=== PATIENT | female | born 1945 | race Caucasian/White ===

== ENCOUNTER 2023-08-11 08:52 | Outpatient (RCR) | payer MEDICARE, OTHER, SELFPAY ==
--- NOTE | 2023-08-11 10:54 | PT.OPEX ---
[facility] [facility] PT [facility] Outpatient Eval Start: 08/11/23 07:50 Freq: Status: Active Protocol: Document 08/11/23 07:50 AMS (Rec: 08/11/23 10:04 AMS [id number]) E-signed By Gabi Grover PT Physical Therapy Outpatient Evaluation Insurance Information Recert Due Date 11/04/23 Insurance Name Medicare B,[employer] Medical Diagnosis Left total knee arthroplasty and hardware removal 08/21/23 Presence of left artificial knee joint Unilateral left primary knee osteoarthritis Treating Diagnosis Aftercare following joint replacement Left knee pain/stiffness Muscle weakness Referring MD Dave Delcid MD Subjective Subjective Carline returns today with ongoing left knee pain. Notable history of left knee arthroscopic partial lateral meniscectomy, tricompartmental debridement, loose body removal (03/15/2016) and left knee lateral tibial plateau fracture ORIF (08/16/2005). She reports the previous injection was effective. There is more pain medial than lateral. She has type 2 diabetes, does not smoke cigarettes and is not on blood thinners. -Dr. Delcid, , confirmed by patient Patient reports to therapy for pre-operative appointment prior to left total knee arthroplasty and hardware removal scheduled for 08/21/[address] Delcid. See history of previous injury/surgeries above - initial injury after falling down the stairs in 2005 with subsequent left tibial plateau ORIF surgery. States she was pain-free for awhile, but now the pain has been getting worse the last 6 months gradually, which has made squatting, kneeling, and longer bouts of walking more painful. X-rays showing end stage tricompartmental arthritis. Please see pre-op note for complete home set up. She is independent without a gait aid at baseline. * home set up: one-level rambler home with no stairs to enter. She has a walk in shower with a grab bar, shower bench, and raised toilet seat frame. 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 Palpation/joint mobility: Tenderness to palpation over medial > lateral joint line on left. Swelling/observation: Midline scar appears well-healed. No visible swelling. Functional Test Performed & Score LEFS: not today Assessment Assessment/Impression Patient is a 78 year old female presenting for pre- operative visit prior to left total knee arthroplasty and hardware removal scheduled for 08/21/23. Notable history of left knee arthroscopic partial lateral meniscectomy, tricompartmental debridement, loose body removal (03/15/2016 ) and left knee lateral tibial plateau fracture ORIF (2005). Upon assessment, patient demonstrates decreased hip/quad strength, pain with squatting, and antalgic gait pattern. These impairments lead to difficulties with squatting, walking longer distances, kneeling, and stairs. Patient will be seen post operatively to reassess impairments that will be addressed with skilled care at [facility]. Today was a one-time visit at this location. Carline would greatly benefit from skilled PT in order to progress strength, ROM, and ambulation post operatively in order to perform all household and work duties without significant difficulty or discomfort. Primary Functional Limitations squatting, stairs, walking longer distances, and kneeling Plan of Care Rehabilitation Potential Good Physical Therapy Goals After pre-op visit: ? Patient will be independent with HEP ? Patient will verbalize knowledge of stair navigation and proper sequencing ? Patient will have knowledge on home adaptations and use of assistive devices post operatively ? Patient will have knowledge of edema management [facility] Coordination/Communication With Referral Source Treatment Plan/Direct Interventions Gait Training,Ice/Cold/ Vasopneumatic,Joint Mobilization,Manual Therapy, Neuromuscular Re-ed, Therapeutic Activities, Therapeutic Exercises Frequency/Duration 1x visit prior to surgery on . Patient scheduled to start outpatient PT s/p TKA on 08/26/23 at [facility]. Has HEP to start with pre-operatively. Patient Will Be Discharged From Therapy Completion of LTG(s) Evaluation Billing Untimed Code Treatment Minutes 15 Complexity Low Certification Information Initial Certification Date 08/11/23 Ending Certification Date 11/04/23 Provider Signature Shows Agreement With POC & Medical Necessity Physician Signature & Date Requested Please Sign/Date Here Physician Comment/Change : Physician NPI Number #
== END 2023-08-12 09:48 | disposition home or self-care (01) ==
PROVIDERS: Visit Provider Orthopaedic Surgery
DX: M17.12 Unilateral primary osteoarthritis, left knee (principal); Z96.652 Presence of left artificial knee joint; M25.562 Pain in left knee; M25.662 Stiffness of left knee, not elsewhere classified; M62.81 Muscle weakness (generalized); Z47.1 Aftercare following joint replacement surgery; Z51.89 Encounter for other specified aftercare
CPT/HCPCS: 97110; 97161

== ENCOUNTER 2023-08-21 10:12 | Day surgery (SDC) | payer MEDICARE, OTHER, SELFPAY ==
[2023-08-21] VITALS (21 sets, daily range): BP systolic 119–158; BP diastolic 53–91; PULSE 52–76; RESP 14–18; TEMP 35.8–37.1; O2SAT 96–100; BMI 33.6
[2023-08-21] MEDS: LACTATED RINGERS 1000 ML 1,000 ML 100 ML IV (09:45)
--- OUTSIDE RECORDS SUMMARY | 2023-08-21 10:15 | XMS_ITS | Clinical Summary ---
Author Organization [facility] Address [address] [place] [address] Care Team Providers Care Associate Manager Affiliate Marketing Name Role Phone Damon Nagel M.D. Primary Care Provider Source Comments Patient records contain information from all sites at [facility]. For routine questions regarding patient records, call [phone] during business hours, M-F 8:00 AM - 5:00 PM Central Time. Record requests for emergency care only can be directed to [phone] at any time.[facility] Allergies Active Allergy Reactions Criticality Noted Date Comments Alendronate GI intolerance Low 08/27/2015 Atenolol Other (see comments) Low 08/11/2009 Celecoxib GI intolerance,Headache Low 04/15/2003 Montelukast Shortness of breath (Reselect Reaction),Headache Low 08/21/2009 Oxycodone Other (see comments) High 01/29/2023 Ezetimibe Other (see comments),Cough Low 01/31/2022 Patient has tried Zetia twice both times resulting in dry cough and chest pressure Medications Medication Sig Dispensed Refills Start Date End Date Status MULTIVITAMIN WITH MINERALS ORAL daily. 08/11/2009 Active loratadine 10 mg capsule Take 10 mg by mouth daily. 09/04/2015 Active ASCORBIC ACID-ASCORBATE CALC ORAL Take 1 tablet by mouth daily. 500 mg 08/11/[address] tablet Take 1 tablet by mouth daily. 10/27/2012 Active CALCIUM CARB/VIT D3/MINERALS (CALCIUM-VITAMIN D ORAL) Take 600 capsules by mouth 2 (two) times a day. 03/04/2016 Active blood-glucose meter kit Check blood sugar everyday 1 each 10/28/2019 Active nitroglycerin (NITROSTAT) 0.4 mg SL tabletIndications:At herosclerotic Heart Disease Of [place] Coronary Artery Without Angina Pectoris Place 1 tablet (0.4 mg total) under the tongue every 5 (five) minutes as needed for chest pain. 25 tablet 1 02/06/2023 Active losartan (COZAAR) 100 mg tabletIndications:Hy pertensive Heart Disease Without Heart Failure Take 1 tablet (100 mg total) by mouth daily. 90 tablet 4 02/06/2023 Active potassium chloride (KLOR-CON M/KDUR) 20 mEq ER tablet Take 1 tablet (20 mEq total) by mouth daily. 90 tablet 4 02/06/2023 Active chlorthalidone (HYGROTON) 25 mg tablet Take 1 tablet (25 mg total) by mouth daily. 90 tablet 4 02/06/2023 Active rosuvastatin (CRESTOR) 40 mg tabletIndications:Hy perlipidemia Mixed Take 1 tablet (40 mg total) by mouth daily. 90 tablet 4 02/06/2023 Active Accu-Chek Fastclix Lancet Drum USE TO CHECK BLOOD SUGAR ONCE DAILY 100 each 3 03/26/2023 Active blood sugar diagnostic strips (Accu-Chek Guide test strips) USE TO TEST ONCE EVERY DAY 100 strip 3 03/26/2023 Active Active Problems Problem Noted Date Diagnosed Date Primary Osteoarthritis Knee Left 02/06/2023 Adrenal Gland Disorder 02/06/2023 Cancer Colon Family History 01/04/2020 Coronary Stent Status Post 01/04/2020 Coronary Arterial Bypass Graft Status Post Perso nal History 12/28/2018 Hypertensive Heart Disease Without Heart Failure 12/22/2017 Peptic Ulcer Disease Personal History 12/22/2017 Diabetes Mellitus Type 2 06/02/2017 Gastroesophageal Reflux Disease Without Esophagi tis 01/22/2017 Anemia Iron Deficiency 12/06/2016 Obesity Body Mass Index 30-39.9 Adult 11/13/2015 Hyperlipidemia 08/24/2015 Overview: Hyperlipidemia Mixed Hysterectomy Abdominal Status Post 11/01/2014 Dysfunction Diastolic 10/12/2012 Carotid Sinus Syndrome 10/04/2011 Atherosclerosis Of Coronary Artery Bypass Graft Without Angina Pectoris 07/30/2010 Myocardial Infarction Old 08/26/2009 Overview: Diagnosis Maintenance Updates NSTEMI Nodule Thyroid 11/29/2008 Osteopenia 04/15/2003 Resolved Problems Problem Noted Date Diagnosed Date Resolved Date Morbid Severe Obesity Due To Excess Calories 9 02/06/2023 Reflux Esophageal 01/22/2017 02/06/2023 Syncope And Near Syncope 07/12/2016 Overview: hospitalized Upper endo PUD 06/2016 [place] Ulcer Peptic 07/11/2016 01/11/2022 Overview: [facility] hospitalization Hyperglycemia 11/13/2015 02/06/2023 Atherosclerotic Heart Diseas e Of [place] Coronary Artery Without Angina Pectoris 10/06/2012 01/04/2020 Hyperlipidemia 05/04/2004 12/22/2017 Hypertension 04/15/2003 01/11/2022 Encounters Date Type Department Care Team Description 08/07/2023 8:30 AM CDT Office Visit Department of Family Medicine, [facility], in [place], [place] [address] [place] [phone] Soila Rousseau D.O. Primary Osteoarthritis Knee Left (Primary Dx); Pain Knee Left; Annual Medicare Examination Return; Hypertensive Heart Disease Without Heart Failure; Diabetes Mellitus Type 2 (HCC); Hyperlipidemia; Coronary Arterial Bypass Graft Status Post Personal History; Atherosclerosis Of Coronary Artery Bypass Graft Without Angina Pectoris; Coronary Stent Status Post; Obesity Body Mass Index 30-39.9 Adult; Adrenal Gland Disorder (HCC) 08/07/2023 Orders Only Department of Family Medicine, [facility], in [place], [place] [address] [place] [phone] Damon Nagel M.D. Diabetes Mellitus Type 2 (HCC) (Primary Dx) 08/06/2023 9:03 AM CDT - 08/06/2023 11:59 PM CDT Hospital Encounter Department of Laboratory Medicine in [place], [place] [address] [place] [phone] Prince Padilla, TERRITORY SALES CONSULTANT, C.N.P. Atherosclerotic Heart Disease Of [place] Coronary Artery Without Angina Pectoris; Coronary Arterial Bypass Graft Status Post Personal History; Preoperative Examination Cardiovascular Discharge Disposition: Home or Self Care 08/06/2023 8:50 AM CDT - 08/06/2023 9:02 AM CDT Hospital Encounter Department of Laboratory Medicine in [place], [place] [address] [place] [address] Damon Nagel M.D. Diabetes Mellitus Type 2 (HCC); Hyperlipidemia; Hyperlipidemia Mixed; Atherosclerotic Heart Disease Of [place] Coronary Artery Without Angina Pectoris; Coronary Arterial Bypass Graft Status Post Personal History; Anemia Iron Deficiency; Preoperative Examination Cardiovascular; Hypertension Essential Primary Discharge Disposition: Home or Self Care 08/06/2023 Orders Only Department of Family Medicine, [facility], in [address] [phone] Damon Nagel M.D. 07/16/2023 10:15 AM CDT Office Visit Department of Cardiovascular Diseases in [address] [phone] Prince Padilla APRN, C.N.P. Atherosclerotic Heart Disease Of [place] Coronary Artery Without Angina Pectoris (Primary Dx); Coronary Stent Status Post; Coronary Arterial Bypass Graft Status Post Personal History; Preoperative Examination Cardiovascular; Hypertension Essential Primary; Hyperlipidemia; Diabetes Mellitus Type 2 (HCC); Anemia Iron Deficiency 07/07/2023 10:30 AM CDT Office Visit Department of Family Medicine, [facility], in [place], [place] [address] [place] [phone] MontagueJanis alvarado APRN, C.N.P., D.N.P. Candidiasis Skin (Primary Dx) 07/07/2023 Nurse Triage Department of [facility], [facility], in [address] [phone] Lana Polo R.N. Rash 06/03/2023 Orders Only [facility] Damon Nagel M.D. from Last 3 Months Immunizations Name Administration Dates Next Due H1N1 All Forms 04/19/2009 HZV (ZOSTAVAX) 10/04/2011 HepA Adult 04/25/2006,12/24/2004 Influenza Split 01/19/2014, 3,01/29/2010,2003,01/29/2003,03/31/1998 Influenza high dose QV(65 ye ars or older) (PF) 12/28/2020 Influenza, Injectable, Quadrivalent 02/01/2016 Influenza, Quadrivalent, Adj uvanted, Preservative Free 01/02/2023,01/01/2022,01/11/2020 Influenza, Seasonal, Injectable 01/21/2012,01/03 Influenza, Unspecified 01/12/2011,2009,01/12/2009,2008 PCV13 11/01/2014 PPSV23 12/06/2016,07/30/2010 RZV (SHINGRIX) 01/31/2019,11/12/2018,07/30/2010 SARS-COV-2 (COVID-19) - MODE RNA (12 YEARS AND OLDER) [id number] 01/17/2023 SARS-COV-2 (COVID-19) - PFIZ ER (Discontinued)(12 years or older) 01/05/2021 SARS-COV-2 (COVID-19) - PFIZ ER BIVALENT TS(Discontinued)(12 YEARS OR OLDER) 01/11/2022 SARS-COV-2 (COVID-19) - PFIZ ER TS(Discontinued)(12 years or older) 07/24/2021 Td (Adult), adsorbed 04/25/2004 Td Preservative Free (TENIVA C, DECAVAC) 10/19/2019 Td, (Adult) Unspecified 01/09/1995 Tdap 07/30/2010 influenza high dose (65 year s or older) (PF) 12/28/2018,12/24/2017,01/22/2017,2015,02/21/2015 Family History Medical History Relation Name Comments Pancreatic cancer Brother 1 Pancreatic cancer Brother 2 Coronary artery disease Brother 3 Damien Ashlee Bypass surgery Diabetes Brother 3 Damien Ashlee Hyperlipidemia Brother 3 Damien Ashlee Hypertension Brother 3 Damien Ashlee Pancreatic cancer Brother 3 Damien [place] Diabetes Brother 4 [place] Hyperlipidemia Brother 4 [place] Pancreatic cancer Brother 4 [place] Colon cancer Father Chris Rosado Obesity Father Chris Rosado Dysrhythmia care Mother Palak Rosado Heart failure Mother Palak [place] Hyperlipidemia Mother Palak [place] Other cancer Mother Palak Rosado Cancerous s ore on her leg Relation Name Status Comments Brother 1 Brother 2 Brother 3 Damien Ashlee Brother 4 [place] Father Chris Rosado Mother Palak Rosado Social History Tobacco Use Types Packs/Day Years Used Date Smoking Tobacco: Never Smokeless Tobacco: Never Tobacco Cessation:Counseling Given: Yes Alcohol Use Standard Drinks/Week Comments Yes 1 (1 standard drink = 0.6 oz pur e alcohol) occassional [facility] Utilities Answer Date Recorded In the past 12 months has [facility] [employer], oil, or water [employer] threatened to shut off services in your home? No 08/05/2023 Humiliation, Afraid, Rape, and Kick questionnair e Answer Date Recorded Within the last year, have y ou been afraid of your partner or ex-partner? No 07/14/2022 Within the last year, have y ou been humiliated or emotionally abused in other ways by your partner or ex-partner? No Within the last year, have y ou been kicked, hit, slapped, or otherwise physically hurt by your partner or ex-partner? No 07/14/2022 Within the last year, have y ou been raped or forced to have any kind of sexual activity by your partner or ex-partner? No 07/14/2022 Social Connection and Isolat ion Panel [NHANES] Answer Date Recorded In a typical week, how many times do you talk on the phone with family, friends, or neighbors? Twice a week 07/14/2022 How often do you get togethe r with friends or relatives? Twice a week 07/14/2022 How often do you attend [facility] or buddhist services? More than 4 times per year 07/14/2022 Do you belong to any clubs o r organizations such as bahai groups, unions, fraternal or athletic groups, or school groups? Yes 07/14/2022 How often do you attend meet ings of the clubs or organizations you belong to? More than 4 times per year 07/14/2022 Are you , , di vorced, , never , or living with a partner? 07/14/2022 AUDIT-C Answer Date Recorded Q1: How often do you have a drink containing alc ohol? 2-4 times a month 07/14/2022 Q2: How many drinks containi ng alcohol do you have on a typical day when you are drinking? 1 or 2 07/14/2022 Q3: How often do you have si x or more drinks on one occasion? Never 07/14/2022 Overall Financial Resource Strain (CARDIA) Answe r Date Recorded How hard is it for you to pa y for the very basics like food, housing, medical care, and heating? Not hard at all 07/14/2022 PHQ-2 Answer Date Recorded PHQ-2 Score 0 08/11/2023 [facility] Occupat ional [facility] - Occupational Stress Questionnaire Answer Date Recorded Do you feel stress - tense, restless, nervous, or anxious, or unable to sleep at night because your mind is troubled all the time - these days? Not at all 07/14/2022 Exercise Vital Sign Answer Date Recorde d On average, how many days pe r week do you engage in moderate to strenuous exercise (like a brisk walk)? 5 days 08/05/2023 On average, how many minutes do you engage in exercise at this level? 30 min 08/05/2023 Hunger Vital Sign Answer Date Recorded Within the past 12 months, y ou worried that your food would run out before you got the money to buy more. Never true 08/05/19 24 Within the past 12 months, t he food you bought just didn't last and you didn't have money to get more. Never true 08/05/2023 PRAPARE - Transportation Answer Date Re corded In the past 12 months, has l ack of transportation kept you from medical appointments or from getting medications? No 09/2023 In the past 12 months, has l ack of transportation kept you from meetings, work, or from getting things needed for daily living? No 08/05/2023 Depression Answer Date Recor ded PHQ-9 Total Score (max 27) 0 08/10 Nutrition Answer Date Recorded On average, how many serving s of fruits and vegetables do you eat per day (serving size is equal to 1 cup or approximately the size of a tennis ball)? 3-5 08/05/2023 Dental Answer Date Recorded Dental: Regular Dentist Yes 01/03/20 Employment Answer Date Recorded Employment status Retired 08/05/2023 Housing Stability Answer Date Recorded What is your living situation today? I have a [facility] place to live 08/05/2023 Education Answer Date Recorded What is the highest level of school you have completed or the highest degree you have received? 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 Gender Identity Female 07/21/2017 4:03 PM CDT Sexual Orientation Straight 07/21/2017 4: 03 PM CDT Last Filed Vital Signs Vital Sign Reading Time Taken Comments Blood Pressure 120/80 08/07/2023 8:16 AM CDT Pulse 60 08/07/2023 8:09 AM CDT Temperature 36.1 ??C (96.9 ??F) 08/07/2023 8:09 AM CD T Respiratory Rate 14 08/07/2023 8:09 AM CDT Oxygen Saturation 99% 07/15/2022 2:56 PM CDT Inhaled Oxygen Concentration - - Weight 71.8 kg (158 lb 4.6 oz) 08/07/2023 8:09 A M CDT Height 146.4 cm (4' 9.64) 07/07/2023 10:22 AM C DT Body Mass Index 33.5 07/07/2023 10:22 AM CDT Plan of Treatment Health Maintenance Due Date Last Done Comments Hepatitis B Vaccines (1 of 3 - Risk 3-dose series) 2007 Dilated Eye Exam 11/27/2023 Postponed f rom 1947 (Patient Refused) Urine Albumin 02/01/2024 01/31/2023, 1003/2021, 01/04/2021, Additional history exists Hemoglobin A1C 02/06/2024 08/06/2023, 110 05/2022, 07/15/2022, Additional history exists Creatinine Level (Kidney Function Test) 08/05/2024 08/06/2023, 01/31/2023, 01/08/2022, Additional history exists Potassium Level 08/05/2024 08/06/2023, 05/2022, 01/08/2022, Additional history exists Sodium Level 08/05/2024 08/06/2023, 05/2022, 01/08/2022, Additional history exists Diabetic Office Visit with Foot Exam 08/06/2024 08/07/2023 Office Visit for Blood Pressure Check / Re-check 08/06/2024 08/07/2023 Visit: Chronic Disease, age 18+ 08/06/2024 08/07/2023, 08/07/2023 Visit: Medicare Annual Wellness 08/07/2024 08/07/2023 COVID-19 Vaccine ( season) 2024 01/17/2023, 01/11/2022, 07/24/2021, Additional history exists Postponed from 05/20/2023 (Patient Refused) DTaP,Tdap,and Td Vaccines (3 - Td or Tdap) 10/18/2029 10/19/2019, 07/30/2010, 04/25/2004, Additional history exists Hepatitis A Vaccines Completed 04/25/2006, 12/25/19 05 Colonoscopy Discontinued 07/07/2009 Colonoscopy Discontinued 07/07/2009 Pneumococcal vaccine (65+ years) Completed 12/06/2016, 11/01/2014, 07/30/2010 Zoster Vaccines Completed 01/31/2019, 10/29, 10/04/2011, Additional history exists CT Colonography Discontinued 12/02/2019, 07/2014, 07/07/2009 CT Colonography Discontinued 12/02/2019, 07/2014, 07/07/2009 Colorectal Cancer Screening Discontinued Colorectal Cancer Surveillance Discontinued Hepatitis C Screening Completed 01/04/2021 Influenza Vaccine Completed 01/02/2023, , 12/28/2020, Additional history exists Mammogram Discontinued 01/09/2023, 12/29, 01/04/2021, Additional history exists Bone Density Scan (Osteoporosis Screen) Discontinued 01/16/2023 Fall Risk Screen (Annual) Completed 07/07/2023 Depression Screening (Annual PHQ-2) Completed 08/11/2023, 07/07/2023 Cologuard Discontinued FIT Discontinued Medical Devices Implanted Type Area Human Resources Communications Manager Device Identifier Shelf Expiration Date Model / Serial / Lot Cardiac Stent Cardiac Stent Heart Xience Stent 3.5 X 15 - Forte [id number] Implanted:Qty: 1 on 08/27/2009 Cardiac Stent Pineda Description:Device Manufactu rer - [employer]. Device Status Text - [id number]. Conversions - Default Historical Implant Device Implanted:2014 (Quantity not on file) Hardware e.g. pins/screws/ rods Left: Leg Description:Body Location - Calf L. Device Status Text - Hardware. Conversions - Default Historical Implant Device Implanted:2014 (Quantity not on file) Stent Other Description:Device Status Te xt - StentOthr. x1. Procedures Procedure Name Priority Date/Time Associated Diagnosis Comments ECG Routine 08/06/2023 9:15 AM CDT Atherosclerotic Heart Disease Of [place] Coronary Artery Without Angina Pectoris Coronary Arterial Bypass Graft Status Post Personal History Preoperative Examination Cardiovascular BASIC METABOLIC PANEL, S/P Routine 08/06/2023 8:58 AM CDT Atherosclerotic Heart Disease Of [place] Coronary Artery Without Angina Pectoris Coronary Arterial Bypass Graft Status Post Personal History Preoperative Examination Cardiovascular Hypertension Essential Primary CBC WITH DIFFERENTIAL, B Routine 08/06/2023 8:58 AM CDT Atherosclerotic Heart Disease Of [place] Coronary Artery Without Angina Pectoris Coronary Arterial Bypass Graft Status Post Personal History Anemia Iron Deficiency Preoperative Examination Cardiovascular LIPID PANEL, S Routine 08/06/2023 8:58 AM CDT Hyperlipidemia Hyperlipidemia Mixed HEMOGLOBIN A1C, B Routine 08/06/2023 8:5 8 AM CDT Diabetes Mellitus Type 2 (HCC) ALBUMIN, RANDOM, U Routine 01/31/2023 8: 35 AM CDT Diabetes Mellitus Type 2 (HCC) BI BREAST SCREENING BILATERAL WITH TOMOSYNTHESIS RAD - Routine (most inpatients and all outpatients) 01/09/2023 2:52 PM CDT Screening Mammogram Breast Cancer HCV AB SCRN W/REFLEX TO HCV PCR, S Routine 01/04/2021 9:57 AM CDT Maintenance Health Adult CT COLONOGRAPHY SCREENING WITHOUT IV CONTRAST RAD - Routine (most inpatients and all outpatients) 12/02/2019 8:19 AM CDT Screening Cancer Colon from Last 3 Months or Most Recently Relevant to Health Maintenance Results * ECG 12 Lead (08/06/2023 9:15 AM CDT) Ventricular Rate ECG/Min 60 BPM MUSE NM Interval 142 ms MUSE QRSD Interval 140 ms MUSE QT Interval 444 ms MUSE QTC Interval 444 ms MUSE P [place] 71 degrees MUSE R [place] 84 degrees MUSE T Wave [place] 32 degrees MUSE 08/06/2023 9:15 AM CDT 08/06/2023 9:27 AM CDT Impressions MUSE - 08/06/2023 9:27 AM CDT Normal sinus rhythm Right bundle branch block with secondary ST-T abnormalities When compared with ECG of 06-Aug-2021 12:33, No significant change was found Reviewed by SINAN Ho Narrative Procedure Note Herminio Lassiter M.D., M.P.H. - 08/06/2023 IMPRESSION: Normal sinus rhythm Right bundle branch block with secondary ST-T abnormalities When compared with ECG of 06-Aug-2021 12:33, No significant change was found Reviewed by SINAN Ho Zeferino Kraft APRNN.PNemo ECG ORDERABLE S MUSE NA * Lipid Panel (08/06/2023 8:58 AM CDT) Triglycerides 111 mg/dL 08/06/2023 3:14 PM CDT OWAT Comment: ----REFERENCE VALUE---- Normal: <150 mg/dL Borderline High: 150-199 mg/dL High: 200-499 mg/dL Very High: > or =500 mg/dL Cholesterol, Total 167 mg/dL 2023 3:14 PM CDT OWAT Comment: ----REFERENCE VALUE---- Desirable: < 200 mg/dL Borderline High: 200 - 239 mg/dL High: > or = 240 mg/dL Cholesterol, LDL, Calculated 84 mg/dL 08/06/2023 3:14 PM CDT OWAT Comment: ----REFERENCE VALUE---- Desirable: <100 mg/dL Above Desirable: 100-129 mg/dL Borderline High: 130-159 mg/dL High: 160-189 mg/dL Very High: >=190 mg/dL ----ADDITIONAL INFORMATION---- LDL cholesterol calculated using the Reddy/NIH equation. Cholesterol, HDL 63 >=50 mg/dL 08/06/19 3:14 PM CDT OWAT Cholesterol, Non-HDL, Calculated 104 mg/dL 08/06/2023 3:14 PM CDT OWAT Comment: ----REFERENCE VALUE---- Desirable: <130 mg/dL Above Desirable: 130-159 mg/dL Borderline High: 160-189 mg/dL High: 190-219 mg/dL Very High: > or =220 mg/dL Fasting (8 HR or more) Yes 08/06/2023 1:17 PM CDT OWAT Blood (Blood, Venous) 08/06/2023 8:58 AM CDT 08/06/2023 1:17 PM CDT Damon Nagel M.D. LAB BLOOD ADD- ON [facility] [address] [place] [address], [place] OWAT [facility] [place] [address] [place] [address] * CBC with Differential, Blood (08/06/2023 8:58 AM CDT) Hemoglobin 12.7 11.6 - 15.0 g/dL 08/06/2023 9:02 AM CDT FB60 Hematocrit 38.7 35.5 - 44.9 % 08/06/2023 9:02 AM CDT FB60 Erythrocytes 4.20 3.92 - 5.13 x10(12)/L 08/06/2023 9:02 AM CDT FB60 MCV 92.1 78.2 - 97.9 fL 08/06/2023 9:02 AM CDT FB60 RBC Distrib Width 13.1 12.2 - 16.1 % 08/06/2023 9:02 AM CDT FB60 Platelet Count 254 157 - 371 x10(9)/L 08/06/2023 9:02 AM CDT FB60 Leukocytes 5.8 3.4 - 9.6 x10(9)/L 08/06/2023 9:02 AM CDT FB60 Neutrophils 2.67 1.56 - 6.45 x10(9)/L 08/06/2023 9:02 AM CDT FB60 Lymphocytes 2.41 0.95 - 3.07 x10(9)/L 08/06/2023 9:02 AM CDT FB60 Monocytes 0.55 0.26 - 0.81 x10(9)/L 08/06/2023 9:02 AM CDT FB60 Eosinophils 0.19 0.03 - 0.48 x10(9)/L 08/06/2023 9:02 AM CDT FB60 Basophils <0.04 0.01 - 0.08 x10(9)/L 08/06/2023 9:02 AM CDT FB60 Blood (Blood, Venous) 08/06/2023 8:58 AM CDT 08/06/2023 8:58 AM CDT Prince Padilla APRN C.N.P. LAB BLOOD ADD -ON [facility] [address] [place] [address], [facility] FB60 [facility] [place] [address] [place] [address] * (ABNORMAL) Hemoglobin A1c (08/06/2023 8:58 AM CDT) Hemoglobin A1c, B 6.6(H) 4.2 - 5.6 % 08/06/2023 3:03 PM CDT OWAT Comment: Hemoglobin A1c values greater than or equal to 6.5 percent are diagnostic for diabetes mellitus. ??Diagnosis should be confirmed by repeat testing. ??In diabetic patients, HbA1c goals should be discussed with healthcare provider. Blood (Blood, Venous) 08/06/2023 8:58 AM CDT 08/06/2023 1:17 PM CDT Damon Nagel M.D. LAB BLOOD ADD- ON [facility] [address], [place] [address], [facility] OWAT [facility] [place] [address] [place] [address] * (ABNORMAL) Basic Metabolic Panel (08/06/2023 8:58 AM CDT) Potassium, P 3.6 3.6 - 5.2 mmol/L 08/06/2023 3:14 PM CDT OWAT Sodium, P 141 135 - 145 mmol/L 08/06/2023 3:14 PM CDT OWAT Chloride, P 99 98 - 107 mmol/L 08/06/2023 3:14 PM CDT OWAT Bicarbonate, P 32(H) 22 - 29 mmol/L 08/06/2023 3:14 PM CDT OWAT Anion Gap, P 10 7 - 15 08/06/2023 3:14 PM CDT OWAT BUN (Blood Urea Nitrogen), P 21 6 - 21 mg/dL 08/06/2023 3:14 PM CDT OWAT Creatinine 0.70 0.59 - 1.04 mg/dL 08/06/2023 3:14 PM CDT OWAT Estimated GFR (eGFR) 90 >=60 mL/min/BSA 08/06/2023 3:14 PM CDT OWAT Comment: Estimated GFR calculated using the 2020 CKD_EPI creatinine equation. Calcium, Total, P 10.2 8.8 - 10.2 mg/dL 08/06/2023 3:14 PM CDT OWAT Glucose, P 123 70 - 140 mg/dL 08/06/2023 3:14 PM CDT OWAT Blood (Blood, Venous) 08/06/2023 8:58 AM CDT 08/06/2023 1:17 PM CDT Prince Padilla APRN CNemoNNemoPNemo LAB BLOOD ADD -ON Performing Organization Address [facility] Co de Phone Number [facility] [address] [place] [address], [facility] OWAT [facility] [place] [address] [place] [address] * Albumin, Random, Urine (01/31/2023 8:35 AM CDT) Microalbumin 26.0 mg/L 01/31/2023 11:53 AM CDT OWAT Creatinine 266 mg/dL 01/31/2023 11:53 AM CDT OWAT Albumin/Creatinin e Ratio 10 <25 mg/g 01/31/2023 11:53 AM CDT OWAT Urine (Urine, Midstream) 01/31/2023 8:35 AM CDT 01/31/2023 11:04 AM CDT Damon Nagel M.D. LAB URINE QUINNE RABLES Performing Organization Address [facility] Co de Phone Number [facility] [address] [place] [address], [facility] OWAT [facility] [place] [address] [place] [address] * BI Breast Screening Bilateral with Tomosynthesis (01/09/2023 2:52 PM CDT) Anatomical Region Laterality Modality Breast, Breast Imaging RST L OS, Breast Imaging ARZ LOS, Breast Imaging FLA LOS Bilateral Mammography 01/09/2023 4:02 PM CDT Impressions 01/09/2023 4:05 PM CDT Negative. RECOMMENDATION: ??Annual Screening Mammogram ASSESSMENT: ??BI-RADS: 1: Negative. Narrative 01/09/2023 4:05 PM CDT EXAM: ??BI BREAST SCREENING BILATERAL WITH TOMOSYNTHESIS Current study was evaluated with a Computer Aided Detection (CAD) system. INDICATION: ??Screening mammogram. COMPARISON: ??Prior exam(s) were available and reviewed for comparison. DENSITY: ??b. There are scattered areas of fibroglandular density. FINDINGS: ??No mammographic findings of malignancy. Procedure Note Damon Bella M.D. - 01/09/2023 EXAM: BI BREAST SCREENING BILATERAL WITH TOMOSYNTHESIS Current study was evaluated with a Computer Aided Detection (CAD) system. INDICATION: Screening mammogram. COMPARISON: Prior exam(s) were available and reviewed for comparison. DENSITY: b. There are scattered areas of fibroglandular density. FINDINGS: No mammographic findings of malignancy. IMPRESSION: Negative. RECOMMENDATION: Annual Screening Mammogram ASSESSMENT: BI-RADS: 1: Negative. Damon Nagel M.D. IMG BI PROCEDU RES * HCV Ab Scrn w/Reflex to HCV PCR, Serum (01/04/2021 9:57 AM CDT) HCV Ab Screen, S Negative Negative 01/05/2021 7:44 AM CDT [facility] Comment:Avmcog-tp-spnnom rat io is <1.00. Blood (Blood, Venous) 01/04/2021 9:57 AM CDT 01/05/2021 6:49 AM CDT Damon Nagel M.D. LAB MICROBIOLO GY - BLOOD ORDERABLES [facility] [address] [place] [address] [facility] Dept. of Laboratory Medicine and Pathology [address] [place] [address] * CT Colonography Screening without IV Contrast (12/02/2019 8:19 AM CDT) Anatomical Region Laterality Modality Abdomen, Pelvis, Abdominal R ST LOS, Abdominal ARZ LOS, Abdominal FLA LOS N/A Computed Tomograp hy, Computed Tomography 12/02/2019 8:44 AM CDT Impressions 12/02/2019 9:25 AM CDT No evidence of polyp or mass in the colon. Narrative 12/02/2019 9:25 AM CDT EXAM: ??CT COLONOGRAPHY SCREENING WITHOUT IV CONTRAST COMPARISON: ??CT colonography 11/02/2014 and 07/07/2009. TECHNIQUE: CT abdomen and pelvis in supine, right decubitus, and left decubitus positions. Preparation: Satisfactory Dose: Low IV contrast material: Not administered Glucagon: 1mg administered subcutaneously Complications: None. Exam Codes: ??C1 E2 T0 COLONIC FINDINGS: Colon is NEGATIVE for polyp or mass. EXTRACOLONIC FINDINGS: INCIDENTAL: Small sliding esophageal hiatal hernia. Vascular calcifications. No abdominal aortic aneurysm. Hysterectomy. Small fat-containing umbilical hernia. Scarring left lung base. Sternotomy. Degenerative changes thoracolumbar spine. Procedure Note Sha An M.D. - 12/02/2019 EXAM: CT COLONOGRAPHY SCREENING WITHOUT IV CONTRAST COMPARISON: CT colonography 11/02/2014 and 07/07/2009. TECHNIQUE: CT abdomen and pelvis in supine, right decubitus, and left decubituspositions. Preparation: Satisfactory Dose: Low IV contrast material: Not administered Glucagon: 1mg administered subcutaneously Complications: None. Exam Codes: C1 E2 T0 COLONIC FINDINGS: Colon is NEGATIVE for polyp or mass. EXTRACOLONIC FINDINGS: INCIDENTAL: Small sliding esophageal hiatal hernia. Vascular calcifications. Noabdominal aortic aneurysm. Hysterectomy. Small fat-containing umbilical hernia. Scarring left lung base. Sternotomy. Degenerative changes thoracolumbarspine. IMPRESSION: No evidence of polyp or mass in the colon. Damon BARTHOLOMEWG CT PROCEDU RES from Last 3 Months or Most Recently Relevant to Health Maintenance Care Teams Associate Manager Affiliate Marketing Relationship Specialty Start Date End Date Damon Nagel M.D. [address] [place] [phone] PCP - General Family Medicine 08/31/19
--- OUTSIDE RECORDS SUMMARY | 2023-08-21 10:15 | XMS_ITS | Referral Summary ---
Author Organization [facility] Address [address] [place] [address] Care Team Providers Care Dye Reel Operator Name Role Phone Damon Nagel M.D. Primary Care Provider Source Comments Patient records contain information from all sites at [facility]. For routine questions regarding patient records, call [phone] during business hours, M-F 8:00 AM - 5:00 PM Central Time. Record requests for emergency care only can be directed to [phone] at any time.[facility] Encounters Date Type Department Care Team Description 08/07/2023 Orders Only Department of Family Medicine, [facility], in [place], [place] [address] [place] [phone] Damon Nagel M.D. Diabetes Mellitus Type 2 (HCC) (Primary Dx) 08/07/2023 8:30 AM CDT Office Visit Department of Family Medicine, [facility], in [place], [place] [address] [place] [phone] Soila Rousseau D.O. Primary Osteoarthritis Knee Left (Primary Dx); Pain Knee Left; Annual Medicare Examination Return; Hypertensive Heart Disease Without Heart Failure; Diabetes Mellitus Type 2 (HCC); Hyperlipidemia; Coronary Arterial Bypass Graft Status Post Personal History; Atherosclerosis Of Coronary Artery Bypass Graft Without Angina Pectoris; Coronary Stent Status Post; Obesity Body Mass Index 30-39.9 Adult; Adrenal Gland Disorder (HCC) 08/06/2023 Orders Only Department of Family Medicine, [facility], in [place], [place] [address] [phone] Damon Nagel M.D. 08/06/2023 9:03 AM CDT - 08/06/2023 11:59 PM CDT Hospital Encounter Department of Laboratory Medicine in [address] [phone] Prince Padilla APRN, C.N.P. Atherosclerotic Heart Disease Of [place] Coronary Artery Without Angina Pectoris; Coronary Arterial Bypass Graft Status Post Personal History; Preoperative Examination Cardiovascular Discharge Disposition: Home or Self Care 08/06/2023 8:50 AM CDT - 08/06/2023 9:02 AM CDT Hospital Encounter Department of Laboratory Medicine in [address] [phone] Damon Nagel M.D. Diabetes Mellitus Type 2 (HCC); Hyperlipidemia; Hyperlipidemia Mixed; Atherosclerotic Heart Disease Of [place] Coronary Artery Without Angina Pectoris; Coronary Arterial Bypass Graft Status Post Personal History; Anemia Iron Deficiency; Preoperative Examination Cardiovascular; Hypertension Essential Primary Discharge Disposition: Home or Self Care 07/16/2023 10:15 AM CDT Office Visit Department of Cardiovascular Diseases in [place], [place] [address] [place] [phone] Prince Padilla APRN, C.N.P. Atherosclerotic Heart Disease Of [place] Coronary Artery Without Angina Pectoris (Primary Dx); Coronary Stent Status Post; Coronary Arterial Bypass Graft Status Post Personal History; Preoperative Examination Cardiovascular; Hypertension Essential Primary; Hyperlipidemia; Diabetes Mellitus Type 2 (HCC); Anemia Iron Deficiency 07/07/2023 10:30 AM CDT Office Visit Department of Family Medicine, [facility], in [place], [place] [address] [place] [phone] Janis Montague APRN, C.N.PNemo, D.N.P. Candidiasis Skin (Primary Dx) 07/07/2023 Nurse Triage Department of Family Medicine, [facility], in [place], [place] [address] [place] [phone] Lana Polo R.N. Rash 06/03/2023 Orders Only [facility] PCP [facility] Damon Nagel M.D. from Last 3 Months Allergies Active Allergy Reactions Criticality Noted Date [...] mg SL tabletIndications:At herosclerotic Heart Disease Of [place] Coronary Artery Without Angina Pectoris Place 1 [...] 07/12/2016 Overview: hospitalized Upper endo PUD 06/2016 [place] Ulcer Peptic 07/11/2016 01/11/2022 Overview: [place] hospitalization Hyperglycemia 11/13/2015 02/06/2023 Atherosclerotic Heart Diseas e Of [place] Coronary Artery Without Angina Pectoris 10/06/2012 01/04/2020 Hyperlipidemia 05/04/2004 12/22/2017 Hypertension 04/15/2003 01/11/2022 Immunizations Name Administration Dates Next Due H1N1 [...] - MODE RNA (12 YEARS AND OLDER) [id number] 01/17/2023 SARS-COV-2 (COVID-19) - PFIZ ER (Discontinued)(12 years or older) 01/05/2021 SARS-COV-2 (COVID-19) - PFIZ ER BIVALENT TS(Discontinued)(12 YEARS OR OLDER) 01/11/2022 SARS-COV-2 (COVID-19) - PFIZ ER TS(Discontinued)(12 years or older) 07/24/2021 Td (Adult), adsorbed 04/25/2004 Td Preservative Free (TENIVA C, DECAVAC) 10/19/2019 Td, (Adult) Unspecified 01/09/1995 Tdap 07/30/2010 influenza high dose (65 year s or older) (PF) 12/28/2018,12/24/2017,01/22/2017,2015,02/21/2015 Social History Tobacco Use Types Packs/Day Years Used Date Smoking Tobacco: Never Smokeless Tobacco: Never Tobacco Cessation:Counseling Given: Yes Alcohol Use Standard Drinks/Week Comments Yes 1 (1 standard drink = 0.6 oz pur e alcohol) occassional [facility] Utilities Answer Date Recorded In the past 12 months has th e electric, gas, oil, or water company threatened to shut off services in your [...] week 07/14/2022 How often do you attend chur ch or pentecostal services? More than 4 times per year 07/14/2022 Do you belong to any clubs o r organizations such as orthodox groups, unions, fraternal or athletic groups, or [...] Answer Date Recorded PHQ-2 Score 0 08/11/20[address] [facility] - Occupational Stress Questionnaire Answer Date Recorded [...] your living situation today? I have a [facility] place to live 08/05/2023 Education Answer Date Recorded What is the highest level of school you have completed or the highest degree you have received? 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 Device Status Text - [id number]. 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 Personal History Preoperative Examination Cardiovascular Hypertension Essential Primary CBC WITH DIFFERENTIAL, B Routine 08/06/2023 8:58 AM CDT Atherosclerotic Heart Disease Of [place] Coronary Artery Without Angina Pectoris Coronary Arterial [...] CDT) Ventricular Rate ECG/Min 60 BPM MUSE MO Interval 142 ms MUSE QRSD Interval 140 ms MUSE QT Interval 444 ms MUSE QTC Interval 444 ms MUSE P [place] 71 degrees MUSE R [place] 84 degrees MUSE T Wave [place] 32 degrees MUSE 08/06/2023 9:15 AM CDT 08/06/2023 9:27 AM CDT Impressions MUSE - 08/06/2023 9:27 AM CDT Normal sinus rhythm Right bundle branch block with secondary ST-T abnormalities When compared with ECG of 06-Aug-2021 12:33, No significant change was found Reviewed by SINAN Ho Narrative Procedure Note Herminio Lassiter M.D., M.P.H. - 05/08/2024 IMPRESSION: Normal sinus rhythm Right bundle branch block with secondary ST-T abnormalities When compared with ECG of 06-Aug-2021 12:33, No significant change was found Reviewed by SINAN Ho Zeferino Kraft APRNNNemoPNemo ECG ORDERABLE S MUSE NA * Lipid [...] Damon Nagel M.D. LAB BLOOD ADD- ON [facility] [address] [place] [address], [place] OW[place] [facility] [place] [address] [place] [address] * CBC with Differential, Blood (08/06/2023 8:58 [...] CDT 08/06/2023 8:58 AM CDT Prince Padilla APRN, C.N.P. LAB BLOOD ADD -ON [facility] [address] [place] [address], [place] [id number] [facility] [place] [address] [place] [address] * (ABNORMAL) Hemoglobin A1c (08/06/2023 8:58 AM [...] Damon Nagel M.D. LAB BLOOD ADD- ON [facility] [address] [place] [address], [facility] [place] [address] [place] [address] * (ABNORMAL) Basic Metabolic Panel (08/06/2023 8:58 [...] 8:58 AM CDT 08/06/2023 1:17 PM CDT Ananth Kraft APRN.N.P. LAB BLOOD ADD -ON Performing Organization Address City/[facility] Co de Phone Number [facility] [address] [place] [phone], [facility] [place] [address] [place] [phone] * Albumin, Random, Urine (01/31/2023 8:35 AM CDT) Microalbumin 26.0 mg/L 01/31/2023 11:53 AM CDT [facility] Creatinine 266 mg/dL 01/31/2023 11:53 AM CDT [facility] Albumin/Creatinin e Ratio 10 <25 mg/g 01/31/2023 11:53 AM CDT [facility] Urine (Urine, Midstream) 01/31/2023 8:35 AM CDT 01/31/2023 11:04 AM CDT Damon Nagel M.D. LAB URINE TIANA [place] Performing Organization Address City/[facility]/ZIP Co de Phone Number [facility] [address] [place] [phone], [facility] OW[facility] [place] [address] [place] [address] * BI Breast Screening Bilateral with Tomosynthesis [...] S Negative Negative 01/05/2021 7:44 AM CDT [facility] Comment:Flokli-cr-uswkbg rat io is <1.00. Blood (Blood, Venous) 01/04/2021 9:57 AM CDT 01/05/2021 6:49 AM CDT Damon Nagel M.D. LAB MICROBIOLO GY - BLOOD ORDERABLES [facility] [address] [place] [address] [facility] Dept. of Laboratory Medicine and Pathology [address] [place] [address] * CT Colonography Screening without IV Contrast [...] polyp or mass in the colon. Damon Nagel M.D. IMG CT PROCEDU RES from Last 3 Months or Most Recently Relevant to Health Maintenance Care Teams Dye Reel Operator Relationship Specialty Start Date End Date Damon Nagel M.D. [address] [place] [phone] PCP - General Family Medicine 08/31/19
--- OUTSIDE RECORDS SUMMARY | 2023-08-21 10:15 | XMS_ITS ---
Author Organization [facility] Address [address] [place] [address] Care Team Providers Care Weaving Inspector Name Role Phone Unavailable Unavailable Unavailable Surgery Details Not on file Complications Check Surgery Details section. Procedure Estimated Blood Loss Check Surgery Details section. Procedure Findings Check Surgery Details section. Procedure Specimens Taken Check Surgery Details section.
--- OUTSIDE RECORDS SUMMARY | 2023-08-21 10:15 | XMS_ITS | Encounter Summary ---
Author Organization [facility] Address [address] [place] [address] Care Team Providers Care Transformer Stock Clerk Name Role Phone Damon Nagel M.D. Primary Care Provider Encounter Details Date Type Department Care Team (Late st Contact Info) Description 08/07/2023 Orders Only Department of Family Medicine, [facility], in [place], [place] [address] [place] [phone] Damon Nagel M.D. [address], [place] [phone] Diabetes Mellitus Type 2 (HCC) (Primary Dx) Social History Tobacco Use Types Packs/Day Years Used Date Smoking Tobacco: Never Smokeless Tobacco: Never Alcohol Use Standard Drinks/Week Comments Yes 1 (1 standard drink = 0.6 oz pur e alcohol) occassional [facility] Utilities Answer Date Recorded In the past 12 months has e [employer], gas, oil, or water [employer] threatened to shut off services in your [...] often do you attend chur ch or holiness services? More than 4 times per year 07/14/2022 Do you belong to any clubs o r organizations such as sikhism groups, unions, fraShijiebang or athletic groups, or school groups? Yes [...] Answer Date Recorded PHQ-2 Score 0 08/11/2023 [facility] - Occupational Stress Questionnaire Answer Date [...] your living situation today? I have a [facility] place to live 08/05/2023 Education Answer Date Recorded What is the highest level of school you have completed or the highest degree you have received? 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 Gender Identity Female 07/21/2017 4:03 PM CDT Sexual Orientation Straight 07/21/2017 4: 03 PM CDT documented as of this encounter Plan of Treatment Scheduled Orders Name Type Priority Associated Diagnoses Orde r Schedule Hemoglobin A1c Lab Routine Diabetes Mellitus Type 2 (HCC) Expected: 02/07/2024 (Approximate), Expires: 11/06/2024 documented as of this encounter Visit Diagnoses Diagnosis Diabetes Mellitus Type 2 (HCC)- Primary documented in this encounter Additional Health Concerns Assessment Noted Time PHQ-9 Depression Total Score: 4 12/29/19 19 1:34 PM CDT documented as of this encounter Care Teams Transformer Stock Clerk Relationship Specialty Start Date End Date Damon Nagel M.D. [address] [place] [phone] PCP - General Family Medicine 08/31/19 documented as of this encounter
--- OUTSIDE RECORDS SUMMARY | 2023-08-21 10:16 | XMS_ITS | Encounter Summary ---
Author Organization [facility] Address [address] [place] [address] Care Team Providers Care Plating Operator Name Role Phone Damon Nagel M.D. 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 [address] [place] [phone] [facility] Region Referral ID Status Reason Start Date Expiration Date Visits Re quested Visits Authorized [id number] Closed 07/16/2023 07/15/2024 1 1 Encounter Details Date Type Department Care Team (Latest Contact Info) Description 08/06/2023 9:03 AM CDT - 08/06/2023 11:59 PM CDT Hospital Encounter Department of Laboratory Medicine in [place], [place] [address] [facility], [place] [phone] Prince Padilla, DEISI, C.N.P. [address] [phone] Atherosclerotic Heart Disease Of [place] Coronary Artery Without Angina Pectoris; Coronary Arterial Bypass Graft Status Post Personal History; Preoperative Examination Cardiovascular Discharge Disposition: Home or Self Care Social History Tobacco Use Types Packs/Day Years Used Date Smoking Tobacco: Never Smokeless Tobacco: Never Alcohol Use Standard Drinks/Week Comments Yes 1 (1 standard drink = 0.6 oz pur e alcohol) occassional [facility] Utilities Answer Date Recorded In the past 12 months has e [employer], gas, oil, or water [employer] threatened to shut off services in your [...] week 07/14/2022 How often do you attend [facility] or synagogue services? More than 4 times per year 07/14/2022 Do you belong to any clubs o r organizations such as congregational groups, unions, fraternal or athletic groups, or [...] PHQ-2 Answer Date Recorded PHQ-2 Score 0 07/07/2023 [employer] [facility] Occup[facility] ional [facility] - Occupational Stress Questionnaire Answer Date Recorded [...] things needed for daily living? No 08/05/2023 Nutrition Answer Date Recorded On average, how many serving s of fruits and vegetables do you eat per day (serving size is equal to 1 cup or approximately the size of a tennis ball)? 3-5 08/05/2023 Dental Answer Date Recorded Dental: Regular Dentist Yes 01/03/20 21 Employment Answer Date Recorded Employment status Retired 08/05/2023 Housing Stability Answer Date Recorded What is your living situation today? I have a [facility] place to live 08/05/2023 Education Answer Date Recorded What is the highest level of school you have completed or the highest degree you have received? 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 500 mg 08/11/[address] tablet Take 1 tablet by mouth daily. 10/27/2012 blood sugar diagnostic strips (Accu-Chek Guide test strips) USE TO TEST ONCE EVERY DAY 100 strip 3 03/26/2023 blood-glucose meter kit Check blood sugar everyday 1 each 10/28/2019 CALCIUM CARB/VIT D3/MINERALS (CALCIUM-VITAMIN D ORAL) Take 600 capsules by mouth 2 (two) times a day. 03/04/2016 chlorthalidone (HYGROTON) 25 mg tablet Take 1 tablet (25 mg total) by mouth daily. 90 tablet 4 02/06/2023 loratadine 10 mg capsule Take 10 mg by mouth daily. 09/04/2015 losartan (COZAAR) 100 mg tabletIndications:Hypert ensive Heart Disease Without Heart Failure Take 1 tablet (100 mg total) by mouth daily. 90 tablet 4 02/06/2023 MULTIVITAMIN WITH MINERALS ORAL daily. 08/11/2009 nitroglycerin (NITROSTAT) 0.4 mg SL tabletIndications:Athero sclerotic Heart Disease Of [place] Coronary Artery Without Angina Pectoris Place 1 tablet (0.4 mg total) under the tongue every 5 (five) minutes as needed for chest pain. 25 tablet 1 02/06/2023 potassium chloride (KLOR-CON M/KDUR) 20 mEq ER tablet Take 1 tablet (20 mEq total) by mouth daily. 90 tablet 4 02/06/2023 rosuvastatin (CRESTOR) 40 mg tabletIndications:Hyperl ipidemia Mixed Take 1 tablet (40 mg total) by mouth daily. 90 tablet 4 02/06/2023 documented as of this encounter Plan of Treatment Not on file documented as of this encounter Procedures Procedure Name Priority Date/Time Associated Diagnosis Comments ECG Routine 08/06/2023 9:15 AM CDT Atherosclerotic Heart Disease [place] Coronary Artery Without Angina Pectoris Coronary Arterial Bypass Graft Status Post Personal History Preoperative Examination Cardiovascular documented in this encounter Results * ECG 12 Lead (08/06/2023 9:15 AM CDT) Ventricular Rate ECG/Min 60 BPM MUSE NV Interval 142 ms MUSE QRSD Interval 140 ms MUSE QT Interval 444 ms MUSE QTC Interval 444 ms MUSE P [place] 71 degrees MUSE R [place] 84 degrees MUSE T Wave [place] 32 degrees MUSE 08/06/2023 9:15 AM CDT [...] change was found Reviewed by SINAN Ho Prince Padilla APRN, C.N.P. 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 [address] [phone] PCP - General Family Medicine 08/31/19 documented as of this encounter
--- OUTSIDE RECORDS SUMMARY | 2023-08-21 10:16 | XMS_ITS | Encounter Summary ---
Author Organization [facility] Address [address] [place] [address] Care Team Providers Care Hot Mill Supervisor Name Role Phone Damon Nagel M.D. Primary Care Provider Encounter Details Date Type Department Care Team (Late st Contact Info) Description 06/03/2023 Orders Only [facility] Damon Nagel M.D. [address] [place] [phone] Social History Tobacco Use Types Packs/Day Years Used Date Smoking Tobacco: Never Smokeless Tobacco: Never Alcohol Use Standard Drinks/Week Comments Yes 1 (1 standard drink = 0.6 oz pur e alcohol) occassional Humiliation, Afraid, Rape, and Kick questionnair e [...] 07/14/2022 How often do you attend chur or spiritism services? More than 4 times per year 07/14/2022 Do you belong to any clubs o r organizations such as judaism groups, unions, fraternal or athletic groups, or [...] PHQ-2 Answer Date Recorded PHQ-2 Score 0 01/06/2023 [facility] - Occupational Stress Questionnaire Answer [...] exercise (like a brisk walk)? 5 days 07/14/2022 On average, how many minutes do you engage in exercise at this level? 60 min 07/14/2022 Hunger Vital Sign Answer Date Recorded Within the past 12 months, y ou worried that your food would run out before you got the money to buy more. Never true 07/15/19 23 Within the past 12 months, t he food you bought just didn't last and you didn't have money to get more. Never true 07/14/2022 PRAPARE - Transportation Answer Date Re corded In the past 12 months, has l ack of transportation kept you from medical appointments or from getting medications? No 06/29 In the past 12 months, has l ack of transportation kept you from meetings, work, or from getting things needed for daily living? No 07/14/2022 Housing Stability Vital Sign Answer Jevon e Recorded In the last 12 months, was t here a time when you were not able to pay the mortgage or rent on time? No 07/14/2022 In the last 12 months, how many places have you lived? 1 07/14/2022 In the last 12 months, was t here a time when you did not have a steady place to sleep or slept in a chcf (including now)? No 07/14/2022 Nutrition Answer Date Recorded Nutrition: EVOO Fat Source Yes 07/14 On average, how many serving s of fruits and vegetables do you eat per day (serving size is equal to 1 cup or approximately the size of a tennis ball)? 4-5 07/14/2022 Dental Answer Date Recorded Dental: Regular Dentist Yes 01/03/20 21 Employment Answer Date Recorded Employment status Retired 07/14/2022 Education Answer Date Recorded What is the highest level of school you have completed or the highest degree you have received? 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 [address] [place] [phone] PCP - General Family Medicine 08/31/19 documented as of this encounter
--- OUTSIDE RECORDS SUMMARY | 2023-08-21 10:16 | XMS_ITS | Encounter Summary ---
Author Organization [facility] Address [address] [place] [address] Care Team Providers Care Hall Clerk Name Role Phone Damon Nagel M.D. Primary Care Provider Reason for Referral * Outpatient (Routine) - Authorized Specialty Diagnoses / Procedures Referred By Marco pompa Referred To Contact Soila Rousseau D.O. [address] [place] [address] [facility] Region Referral ID Status Reason Start Date Expiration Date V isits Requested Visits Authorized [id number] Authorized 08/07/2023 02/05/2025 1 1 Scheduling Instructions 12-Month Medicare Visit Reason for Visit * Reason Comments Pre-op Exam Knee replacement * Appointment Request (Routine) - Closed Specialty Diagnoses / Procedures Referred By Contac t Referred To Contact Family Medicine Referral ID Status Reason Start Date Expiration Date Visits Re quested Visits Authorized [id number] Closed 06/23/2023 06/22/2024 1 1 Encounter Details Date Type Department Care Team (Latest Contact Info) Description 08/07/2023 8:30 AM CDT Office Visit Department of Family Medicine, [facility], in [place], [place] [address], [place] [address] Soila Rousseau D.O. [address] [place] [phone] Primary Osteoarthritis Knee Left (Primary Dx); Pain Knee Left; Annual Medicare Examination Return; Hypertensive Heart Disease Without Heart Failure; Diabetes Mellitus Type 2 (HCC); Hyperlipidemia; Coronary Arterial Bypass Graft Status Post Personal History; Atherosclerosis Of Coronary Artery Bypass Graft Without Angina Pectoris; Coronary Stent Status Post; Obesity Body Mass Index 30-39.9 Adult; Adrenal Gland Disorder (HCC) Social History Tobacco Use Types Packs/Day Years Used Date Smoking Tobacco: Never Smokeless Tobacco: Never Tobacco Cessation:Counseling Given: Yes Alcohol Use Standard Drinks/Week Comments Yes 1 (1 standard drink = 0.6 oz pur e alcohol) occassional [facility] Utilities Answer Date Recorded In the past 12 months has e [employer] gas, oil, or water [employer] threatened to shut off services in your [...] often do you attend chur ch or church services? More than 4 times per year 07/14/2022 Do you belong to any clubs o r organizations such as shinto groups, unions, fraternal or athletic groups, or [...] Answer Date Recorded PHQ-2 Score 0 08/11/2023 [facility] Occupational Stress Questionnaire Answer Date [...] your living situation today? I have a [facility] place to live 08/05/2023 Education Answer Date Recorded What is the highest level of school you have completed or the highest degree you have received? Associate degree: occupational, technical, or vocational program 12/28/2018 Sex and Gender Information Value Date Recorded Sex Assigned at Female 06/08/2021 1:02 PM [employer] Gender Identity Female 07/21/2017 4:03 PM CDT Sexual Orientation Straight 07/21/2017 4: 03 PM CDT documented as of this encounter Last Filed Vital Signs Vital Sign Reading Time Taken Comments Blood Pressure 120/80 08/07/2023 8:16 AM CDT Pulse 60 08/07/2023 8:09 AM CDT Temperature 36.1 ??C (96.9 ??F) 08/07/2023 8:09 AM CD T Respiratory Rate 14 08/07/2023 8:09 AM CDT Oxygen Saturation - - Inhaled Oxygen Concentration - - Weight 71.8 kg (158 lb 4.6 oz) 08/07/2023 8:09 A M CDT Height - - Body Mass Index 33.5 07/07/2023 10:22 AM CDT documented in this encounter Patient Instructions * Patient Instructions* Soila Rousseau D.O. - 08/07/2023 8:30 AM CDT STOP Asprin and all vitamin 7 days before surgery. 2.do not take hygroton or chlorthalidone day of surgery. Start up next day. 3.do not take Claritin(loratadine. ) day of surgery. Restart next day. 4. Take losartan or cozaar with sip of water . Day of surgery. 5.do not take potassium day of surgery. Restart next day. 6. Rosuvastatin or Crestor take at night. May try tramadol for pain . documented in this encounter Progress Notes * Soila Rousseau D.O. - 08/07/2023 8:30 AM CDT HEALTH ASSESSMENT PREOP CONSULTATION FOR LEFT KNEE REPLACEMENT MEDICARE WELLNESS Reason For Visit Patient presents with Pre-op Exam Knee replacement PREOP CONSULTATION FOR SEVERE OSTEOARTHRITIS OF THE LEFT KNEE AND MEDICARE WELLNESS The following portions of the patient's history were reviewed and updated as appropriate: allergies, medications, family history, social history, surgical history and care team/suppliers. VITALS Blood Pressure: 135/72 (08/07/2023 8:09 AM) Temperature: 36.1 ??C (08/07/2023 8:09 AM) Temp Source: Temporal (08/07/2023 8:09 AM) Pulse Rate: 60 (08/07/2023 8:09 AM) Resp Rate: 14 (08/07/2023 8:09 AM) Weight: 71.8 kg (08/07/2023 8:09 AM) RECHECKED BLOOD PRESSURE 120/80 Health Risk Assessment (HRA) completed and reviewed: Yes Reviewed health risk assessment Social Determinants of Health (SDOH) questionnaires were reviewed and the following concerns were prioritized to be addressed during this visit: No concerns identified. no social determinants of health seen that were abnormal or of concern Depression Screening PHQ-2 Score: 0 Discussed depression anxiety negative Cognitive Assessment Score is 3 or greater and no cognitive concerns observed. Normal cognitive assessment Current Opioid Use None Outpatient Pain Assessment Pain Score: 6 Pain Loc: Knee (left) FUNCTIONAL/HOME ENVIRONMENT History of falls: Have you fallen within the last year or do you fear you might fall?: No (0:21 AM) Do you use an assisted device to walk? (Walker, cane, wheelchair, crutch): No (07/07/2023 10:21 AM) Today, do you feel any of the following? Weak, dizzy, shaky, or unsteady?: No (07/07/2023 10:21 AM) Have you taken any medication within the last 6 hours which may make you feel drowsy? Such as sleep, pain, or anxiety medication: No (07/07/2023 10:21 AM) Home Safety Does your home have throw rugs, poor lighting or slippery bathtub/shower? No Does your home have grab bars in the bathroom, handrails on the stairs and steps? Yes Does your home have functional smoke and carbon monoxide alarms? Yes Advance Directive Advance Directives: Not Received Advance directive information given. Preventive Services Schedule Health Maintenance Topic Date Due Diabetic Office Visit with Foot Exam Never done Dilated Eye Exam Never done Visit: Medicare Annual Wellness Never done COVID-19 Vaccine () 05/20/2023 Urine Albumin 02/01/2024 Hemoglobin A1C 02/06/2024 Visit: Chronic Disease, age 18+ 02/07/2024 Creatinine Level (Kidney Function Test) 08/05/2024 Potassium Level 08/05/2024 Sodium Level 08/05/2024 Office Visit for Blood Pressure Check / Re-check 08/06/2024 DTaP,Tdap,and Td Vaccines (3 - Td or Tdap) 10/18/2029 Depression Screening (Annual PHQ-2) Completed Fall Risk Screen (Annual) Completed Pneumococcal vaccine (65+ years) Completed Hepatitis A Vaccines Completed Influenza Vaccine Completed Hepatitis C Screening Completed Zoster Vaccines Completed Bone Density Scan (Osteoporosis Screen) Discontinued Colorectal Cancer Screening Discontinued Colorectal Cancer Surveillance Discontinued Mammogram Discontinued After Visit Summary (AVS) reviewed and patient provided with printed copy documented in this encounter H&P Notes * Soila Rousseau D.O. - 08/07/2023 8:30 AM CDT SUBJECTIVE preop clearance for left total knee And Medicare wellness CHIEF COMPLAINT/REASON FOR CONSULT Chief Complaint Patient presents with Pre-op Exam Knee replacement Medicare wellness was done and please see above note for Medicare wellness. Carline Gibbons is a 78 y.o. y.o. female who presents today for a pre- operative consultation at the request of certain who plans on performing left total knee replacement on the following date: August 21, 2023 at hospital.. Based on information from the patient, the surgery has moderate risk. Procedure is: Intermediate Risk (cardiac risk <5%): CEA, head/neck surgery, intraabdominal or intrathoracic surgery, orthopedic surgery, prostate surgery RISK STRATIFICATION Functional status: Functional Class II: Able to perform 5-7 METS (walk > 4 blocks or climb over 2 flights without cardiac or pulmonary Sx) Revised [Boyd] Cardiac Risk Index (RCRI) Hx ischemic heart disease: YES (Hx NJ, Hx positive exercise test, current complaint of chest pain c/w myocardial ischemia, use of nitrate therapy, or ECG with pathological Q waves) (Do not count prior coronary revascularization procedure unless one of the other criteria for ischemic heart disease is present).HAS coronary artery disease AND HAD BYPASS . Hx heart failure: no (History of congestive heart failure, Pulmonary edema, PND, Bilateral rales, S3 gallop, or CXR withpulmonary vascular redistribution) Hx cerebrovascular disease (stroke or TIA): NO Diabetes requiring perioperative insulin use: NO CKD (stage 3 or creatinine >2.0) : NO High-risk surgery type: NO (e.g., supra-inguinal vascular surgery, intra-peritoneal surgery, or intra- thoracic surgery) RCRI Score = 1 RCRI estimated risk of karishma-operative cardiac , non-fatal NJ, or non-fatal cardiac arrest: 1 Predictors (0.9% risk of major cardiac event) Patient is a 78-year-old that comes in today both for preop consultation for left total knee replacement and removal of left knee hardware. Also for Medicare wellness. Patient has had a coronary artery bypass graft and has atherosclerosis of coronary bypass graft with no angina pectoris. She does have a coronary artery stent. Patient has a personal history of a non-STEMI with a drug-eluting stent of the LAD in July of 2009 followed by a CABG x2 shaw to LAD and radial graft to OM on October 14, 2012. She has no chest pain and no dyspnea at the present time. She has a chronic right bundle-branch block. I reviewed the last cardiology note with her. She also has hypertensive heart disease without any heart failure. She currently is on chlorthalidone, losartan 100 mg a day, potassium chloride 20 mEq 1 a day,. She is severe osteoarthritis of the left knee and severe left knee pain that is increasing and she is going to have a total knee besides removal of hardware that has been in there in the left knee after his severe injury. I reviewed with her her annual Medicare wellness and please see previous note on that. Patient has type 2 diabetes and discussed yearly eye exam and diabetic foot care and we examined her feet today she has no ulcerations. Pulses intact in lower extremities. Discussed diabetic diet. On08/06/2023 her A1c was 6.6. Discussed hyperlipidemia and low-cholesterol low triglyceride diet and discussed with patient she is on Crestor 40 mg 1 a day. Her BMI is 33.50 kg and discussed low-cholesterol low triglyceride diet and exercise and weight loss discussed the adverse effects of elevated BMI on her blood sugar blood pressure and cholesterol. We discussed her coronary arterial bypass graft and then she has atherosclerotic versus of the coronary artery bypass graft without angina and her stent that she has had in the past. She is going to stop her aspirin baby aspirin 7 days before the surgery. We discussed her obesity and BMI of 33.50 kg and low-cholesterol low triglyceride diet. Patient also has an adrenal gland disorder. Patient had an MRI in 2021 she has a 1.2 cm benign lipid rich right adrenal adenoma and we will continue to follow it. She has not had any difficulty. Oglesby ABCDEFGHINO Checklist: A (Allergies): YES B (Bleeding tendency, personal or family):NO Recent aspirin, plavix, or warfarin use: YES WILL STOP ASA 7 DAYS BEFORE C (Cardiac history*, recent Corticosteroids, Cervical spine problems): YES CARDIAC HISTORY NO CERVICAL SPINE PROBLEMS AND NO CORTICOSTEROIDS D (Diabetes): YES DIABETES DIET CONTROLLED. E (Embolic/stroke or clotting history): NO F (Family Hx anesthesia complications, personal or family): NO G (Glaucoma, GERD): NO H (Hepatitis or HIV risk): NO I (Intubation difficulties) Mallampati Score (Seated, neck in neutral position, tongue fully protruded without phonation): III (soft and hard palate and base of uvula visible) N (pre-existing Neuro deficits): NO O (Obstructive sleep apnea):NO CARDIOVASCULAR HISTORY cardiovascular history patient had a non-STEMI NJ with a drug-eluting stent to the LAD in July of 2009 followed by CABG x2 in October 14, 2012. Stent in the past 12 months: NO History of bacterial endocarditis: NO History of heart valve replacement: NO PULMONARY HISTORY: Pulmonary History none Oxygen use: NO OTHER HISTORY Other Medical History none History of joint replacement: NO Need antibiotics prior to surgery or dental procedures: NO Recent illnesses: NO Recent antibiotic use: NO History of MRSA skin infections: NO Smoker: NO Alcohol use: NO Illicit drug use: NO : NO Glasses/Contacts: YES CONTACTS Hearing aids: NO Dentures/Dental issues: NO REVIEW OF SYSTEMS Cardiovascular: - Coronary artery disease and she is has hypertensive heart disease without heart failure She has had bypass surgery And an LAD stent Mixed hyperlipidemia Musculoskeletal: Positive for pain or stiffness in the joints, joint swelling and muscle pain/stiffness. - Osteoarthritis of the left knee All other systems reviewed and are negative. The following systems were negative: Constitutional, Skin, Eyes, ENT, Respiratory, Gastrointestinal, Genitourinary, Hematologic, Neurological, Psychiatric PAST MEDICAL/SURGICAL HISTORY Patient Active Problem List Diagnosis Hyperlipidemia Osteopenia Atherosclerosis Of Coronary Artery Bypass Graft Without Angina Pectoris Diabetes Mellitus Type 2 (HCC) Hypertensive Heart Disease Without Heart Failure Peptic Ulcer Disease Personal History Coronary Arterial Bypass Graft Status Post Personal History Myocardial Infarction Old Cancer Colon Family History Coronary Stent Status Post Gastroesophageal Reflux Disease Without Esophagitis Anemia Iron Deficiency Carotid Sinus Syndrome Dysfunction Diastolic Hysterectomy Abdominal Status Post Nodule Thyroid Obesity Body Mass Index 30-39.9 Adult Primary Osteoarthritis Knee Left Adrenal Gland Disorder (HCC) Past Surgical History: Procedure Laterality Date APPENDECTOMY N/A 07/21/1976 Appendectomy APPENDECTOMY 07/21/1976 CORONARY ANGIOPLASTY 08/27/2009 CORONARY ARTERY BYPASS GRAFT 09/2012 Double bypass CORONARY ARTERY BYPASS GRAFTS X 2 N/A 10/19/2012 CABG x 2 - Coronary artery bypass grafts x 2 HERNIA REPAIR 02/10/1971 HYSTERECTOMY 07/21/1976 With BSO due to endometriosis KNEE ARTHROSCOPY W/ MENISCAL REPAIR Left 02/2016 Dr. Delcid OOPHORECTOMY, PARTIAL OR TOTAL, UNILATERAL OR BILATERAL;.. 07/21/1976 OTHER CONVERTED SHX (SEE COMMENT) N/A 07/07/2009 >Attempted colonoscopy, failed. OTHER CONVERTED SHX (SEE COMMENT) N/A 09/28/2001 >Excision of scapular lipoma. OTHER CONVERTED SHX (SEE COMMENT) N/A 08/27/2009 >Drug-eluting stent placement to the ostium of the left anterior descending coronary artery. OTHER CONVERTED SHX (SEE COMMENT) N/A 11/05/1999 >Colonoscopy OTHER SURGICAL HISTORY 06/11/2011 Rt rotator cuff repair ROTATOR CUFF REPAIR Right 06/11/2011 TIBIA FRACTURE SURGERY Left 07/2005 Tibia and Tibial Plateau repair - Dr. Delcid VAGINAL DELIVERY FAMILY HISTORY Family History Problem Relation Name Age of Onset Heart failure Mother Palak Nevilleu Dysrhythmia care Mother Palak Rosado Other cancer Mother Palak [place] Cancerous sore on her leg Hyperlipidemia Mother Palak Rosado Colon cancer Father Chris Rosado Obesity Father Chris Rosado Pancreatic cancer Brother 75 Pancreatic cancer Brother 62 Pancreatic cancer Brother Damien Rosado Coronary artery disease Brother Damien Rosado Bypass surgery Hypertension Brother Damien Rosado Hyperlipidemia Brother Damien Rosado Diabetes Brother Damien Rosado Pancreatic cancer Brother [place] Hyperlipidemia Brother [place] Diabetes Brother [place] SOCIAL HISTORY Social History Tobacco Use Smoking status: Never Smokeless tobacco: Never Vaping Use Vaping status: never used Substance Use Topics Alcohol use: Yes Alcohol/week: 1.0 standard drink of alcohol Types: 1 Glasses of wine per week Comment: occassional Drug use: No MEDICATIONS Current Outpatient Medications Medication Sig Accu-Chek Fastclix Lancet Drum USE TO CHECK BLOOD SUGAR ONCE DAILY ASCORBIC ACID-ASCORBATE CALC ORAL Take 1 tablet by mouth daily. 500 [address] tablet Take 1 tablet by mouth daily. blood sugar diagnostic strips (Accu-Chek Guide test strips) USE TO TEST ONCE EVERY DAY blood-glucose meter kit Check blood sugar everyday CALCIUM CARB/VIT D3/MINERALS (CALCIUM-VITAMIN D ORAL) Take 600 capsules by mouth 2 (two) times a day. chlorthalidone (HYGROTON) 25 mg tablet Take 1 tablet (25 mg total) by mouth daily. loratadine 10 mg capsule Take 10 mg by mouth daily. losartan (COZAAR) 100 mg tablet Take 1 tablet (100 mg total) by mouth daily. MULTIVITAMIN WITH MINERALS ORAL daily. nitroglycerin (NITROSTAT) 0.[address] 1 tablet (0.4 mg total) under the tongue every 5 (five) minutes as needed for chest pain. potassium chloride (KLOR-CON M/KDUR) 20 mEq ER tablet Take 1 tablet (20 mEq total) by mouth daily. rosuvastatin (CRESTOR) 40 mg tablet Take 1 tablet (40 mg total) by mouth daily. ALLERGIES Allergies Allergen Reactions Oxycodone Other (see comments) Alendronate GI intolerance Atenolol Other (see comments) Celecoxib GI intolerance and Headache Montelukast Shortness of breath (Reselect Reaction) and Headache Zetia [Ezetimibe] Other (see comments) and Cough Patient has tried Zetia twice both times resulting in dry cough and chest pressure OBJECTIVE BP 135/72 (BP Location: Right arm, Patient Position: Sitting, Cuff Size: Regular) Pulse 60 Temp36.1 ??C (Temporal) Resp 14 Wt 71.8 kg BMI 33.50 kg/m?? Rechecked blood pressure 120/80 PHYSICAL EXAMINATION Vitals and nursing note reviewed. Constitutional Appearance: Normal appearance. She is obese. HENT Head: Normocephalic. Right Ear: Tympanic membrane, ear canal and external ear normal. Left Ear: Tympanic membrane, ear canal and external ear normal. Nose: Nose normal. Mouth/Throat: Mouth: Mucous membranes are moist. Pharynx: Oropharynx is clear. Eyes Extraocular Movements: Extraocular movements intact. Conjunctiva/sclera: Conjunctivae normal. Pupils: Pupils are equal, round, and reactive to light. Cardiovascular Rate and Rhythm: Normal rate and regular rhythm. Pulses: Normal pulses. Heart sounds: Normal heart sounds. Pulmonary Effort: Pulmonary effort is normal. Breath sounds: Normal breath sounds. Abdominal General: Bowel sounds are normal. Palpations: Abdomen is soft. Musculoskeletal General: Swelling and tenderness present. Cervical back: Normal range of motion. Comments: Tenderness and swelling of the left knee. Diabetic foot exam both feet pulses are intact and strong bilaterally and no diabetic foot ulcers Skin General: Skin is warm. Capillary Refill: Capillary refill takes less than 2 seconds. Neurological General: No focal deficit present. Mental Status: She is alert and oriented to person, place, and time. Mental status is at baseline. Psychiatric Mood and Affect: Mood normal. Behavior: Behavior normal. Thought Content: Thought content normal. Judgment: Judgment normal. Reviewed labs done 08/06/2023 her hemoglobin was 12.7, platelets [id number], white count 5.8, creatinine 0.70, glomerular filtration rate greater than 90, total calcium 10.2, glucose 123, triglycerides 111, total cholesterol 167, LDL 84, HDL 63, urine micro on 01/31/2023 was 26 patient's A1c was 6.6 on08/06/2023 DIAGNOSTICS EKG on 08/06/2023 showed a normal sinus rhythm right bundle-branch block and no change compared to previous in 2021. 08/06/2023 hemoglobin 12.7, platelets [id number], white count 5.8, sodium 141, potassium 3.6, creatinine 0.70, glomerular filtration rate 90, calcium 10.2 glucose 123, total cholesterol 167 [id number] LDL 84 HDL 63 urine micro 26 and A1c 6.6 ASSESSMENT / PLAN 1. Primary Osteoarthritis Knee Left Osteoarthritis of the left knee she has had severe pain and it has been increasing she is tried allthe conservative measures she is cleared for surgery in the left knee. 2. Pain Knee Left Pain of the left knee is due to severe osteoarthritis of the left knee. 3. Annual Medicare Examination Return We did her annual Medicare wellness today also. 4. Hypertensive Heart Disease Without Heart Failure Discussed hypertensive heart disease without any heart failure and discussed her medications and a no added salt diet and discussed elevated BMI 5. Diabetes Mellitus Type 2 (HCC) Discussed type 2 diabetes and diabetic diet and exercise. Discussed yearly eye exam. 6. Hyperlipidemia Discussed Crestor 40 mg 1 a day and a low-cholesterol low triglyceride diet and reviewed her labs. 7. Coronary Arterial Bypass Graft Status Post Personal History Discussed the last cardiology note and her coronary artery bypass history. 8. Atherosclerosis Of Coronary Artery Bypass Graft Without Angina Pectoris Discussed atherosclerosis of the coronary bypass graft she has having no chest pain and reviewed cardiology note 9. Coronary Stent Status Post She had a non-STEMI NJ with a drug-eluting stent in the LAD in 2009. She has no chest pain 10. Obesity Body Mass Index 30-39.9 Adult Discussed BMI of 33.50 kg and low-cholesterol low triglyceride diet and the adverse effects of elevated BMI on overall health blood sugar blood pressure and cholesterol. 11. Adrenal Gland Disorder (HCC) Discussed her last MRI which showed a 1.2 cm benign lipid rich right adrenal adenoma and we will continue to monitor PLAN: Patient medically acceptable for planned procedure - See NELSON in HPI above. The patient is deemed to have a medically satisfactory risk profile for the planned surgical procedure, and of low risk of a karishma-operative cardiac event. Patient is capable of >4 METS activity without unusual dyspnea or chest pain, no additional cardiac testing is needed. We reviewed medications to avoid taking prior to the procedure, including avoiding aspirin, NSAIDs, and herbal medications for at least 1 week prior to surgery. The patient knows to be fasting after midnight the day of surgery. Further preoperative and postoperative recommendations will be given prior to surgery by surgeon. Patient will followup with me as needed. PATIENT IS CLEARED FOR SURGERY SHE IS OKAY TO HAVE SURGERY. I DISCUSSED WITH PATIENT STOPPED ASPIRIN ALL VITAMIN 7 DAYS BEFORE SURGERY Do not take Claritin the day of surgery restart it the next day. Take losartan with a sip of water the day of surgery. Do not take the potassium until the day after surgery. Take Crestor the night of surgery Soila Rousseau D.O. documented in this encounter Nursing Notes * Soila Rousseau D.O. - 08/11/2023 8:36 AM CDT Normal mini cognitive exam done * Soila Rousseau D.O. - 08/07/2023 9:01 AM CDT NORMAL MENTAL STATUS AND MINI COG EXAM documented in this encounter Plan of Treatment Scheduled Referrals Name Type Priority Associated Diagnoses Orde r Schedule Primary Care nurse visit (clinic) - [facility] Region; Medicare Annual Wellness Outpatient Referral Routine Expected: 08/06/2024 (Approximate), Expires: 11/06/2024 documented as of this encounter Visit Diagnoses Diagnosis Primary Osteoarthritis Knee Left- Primary Pain Knee Left Annual Medicare Examination Return Hypertensive Heart Disease Without Heart Failure Diabetes Mellitus Type 2 (HCC) Hyperlipidemia Coronary Arterial Bypass Graft Status Post Personal History Atherosclerosis Of Coronary Artery Bypass Graft Without Angina Pectoris Coronary Stent Status Post Obesity Body Mass Index 30-39.9 Adult Adrenal Gland Disorder (HCC) documented in this encounter Additional Health Concerns Assessment Noted Time PHQ-9 Depression Total Score: 0 08/11/19 24 8:34 AM CDT documented as of this encounter Care Teams Hall Clerk Relationship Specialty Start Date End Date Damon Nagel M.D. [address] [place] [phone] PCP - General Family Medicine 08/31/19 documented as of this encounter
--- OUTSIDE RECORDS SUMMARY | 2023-08-21 10:16 | XMS_ITS | Encounter Summary ---
Author Organization [facility] Address [address] [place] [address] Care Team Providers Care Pin Inserter Regulator Name Role Phone Damon Nagel M.D. Primary Care Provider Reason for Visit * Reason Comments Rash * Appointment Request (Routine) - Closed Specialty Diagnoses / Procedures Referred By Marco pompa Referred To Contact Family Medicine Referral ID Status Reason Start Date Expiration Date Visits Re quested Visits Authorized [id number] Closed 07/07/2023 07/06/2024 1 1 Encounter Details Date Type Department Care Team (Late st Contact Info) Description 07/07/2023 10:30 AM CDT Office Visit Department of Family Medicine, [facility], in [place], [place] [address] [phone] Janis Montague APRN, C.N.P., D.N.P. [address] [place] [phone] Candidiasis Skin (Primary Dx) Social History Tobacco Use Types [...] How often do you attend chur or yarsani services? More than 4 times per year 07/14/2022 Do you belong to any clubs o r organizations such as protestant groups, unions, fraternal or athletic groups, or [...] Answer Date Recorded PHQ-2 Score 0 07/07/2023 [facility] [place] of Occupat ional Health - Occupational Stress [...] place to sleep or slept in a care home (including now)? No 07/14/2022 Nutrition Answer Date [...] Sex Assigned at Female 06/08/2021 1:02 PM CELERY PACKER Gender Identity Female 07/21/2017 4:03 PM CDT Sexual Orientation Straight 07/21/2017 4: 03 PM CDT documented as of this encounter Last Filed Vital Signs Vital Sign Reading Time Taken Comments Blood Pressure 120/64 07/07/2023 11:03 AM CDT Pulse 58 07/07/2023 10:22 AM CDT Temperature 36.2 ??C (97.1 ??F) 07/07/2023 1 0:22 AM CDT Respiratory Rate - - Oxygen Saturation - - Inhaled Oxygen Concentration - - Weight 71.2 kg (156 lb 15.5 oz) 024 10:22 AM CDT Height 146.4 cm (4' 9.64) 07/07/2023 1 0:22 AM CDT Body Mass Index 33.22 07/07/2023 10:22 AM CDT documented in this encounter Progress Notes * Janis Montague APRN, C.N.P., D.N.P. - 07/07/2023 10:30 AM CDT SUBJECTIVE CHIEF COMPLAINT/REASON FOR VISIT Carline Gibbons is a 78 y.o. female who presents for evaluation of Rash. HISTORY OF PRESENT ILLNESS Itchy and painful rash under both breasts noticed about a week ago. Tried hydrocortisone and then Neosporin and neither of these helped. Then tried some Rubbing alcohol, thought was going to help butthen got worse over the weekend again. Burning type pain. She does endorse that prior to rash developing she was trying on some bras at the store. The following portions of the patient's history were reviewed and updated as appropriate: allergies, current medications, family history, medical history, social history, surgical history, and problem list. REVIEW OF SYSTEMS Pertinent review of systems negative except as per above OBJECTIVE VITAL SIGNS Blood pressure 120/64, pulse (!) 58, temperature 36.2 ??C, temperature source Temporal, height 146.4 cm, weight 71.2 kg, not currently . PHYSICAL EXAMINATION General: Well developed, well nourished, in no apparent distress. Appearance, behavior, and speech are appropriate. Skin: Warm to touch, good turgor. No rash. Head: Normocephalic, atraumatic. Eyes: Sclera white, conjunctiva pink bilaterally. Ears: Hearing grossly intact. Lungs: Regular and unlabored. Chest expansion symmetrical. Breasts: Bilateral breasts thoughts with erythematous maculopapular rash without drainage, edema, or ulceration Neurological: Alert and cooperative. Psychiatric: Appropriate mood and affect. Thoughts coherent. Maintains good eye contact throughout interview. Web Development Director: ASSESSMENT / PLAN 1. Candidiasis Skin Discussed likely developed a yeast infection under the breasts due to nature of warm moist environment. Recommend nystatin cream twice daily to areas of rash. May stop use 24 hours after rash resolves. Follow-up if not improving or worsening. - nystatin (MYCOSTATIN) 100,000 unit/gram cream; Apply 1 Application topically 2 (two) times a day.Apply to breast folds. Dispense: 30 g; Refill: 0 Questions answered. Patient expresses verbal understanding and agrees with plan of care. Janis Montague APRN, C.N.P., D.N.P. documented in this encounter Plan of Treatment Not on file documented as of this encounter Visit Diagnoses Diagnosis Candidiasis Skin- Primary documented in this encounter Additional Health Concerns Assessment Noted Time PHQ-9 Depression Total Score: 4 12/29/19 19 1:34 PM CDT documented as of this encounter Care Teams Pin Inserter Regulator Relationship Specialty Start Date End Date Damon Nagel M.D. NPWale: [phone] [address] [phone] PCP - General Family Medicine 08/31/19 documented as of this encounter
--- OUTSIDE RECORDS SUMMARY | 2023-08-21 10:16 | XMS_ITS | Clinical Summary ---
Author Organization [facility] Address [place], [place] [address] Care Team Providers Care Parking Inspector Name Role Phone Damon Nagel MD Primary Care Provi elizabeth Allergies Active Allergy Reactions Criticality Noted Date Comments Alendronic Acid GI Upset 07/07/2009 Atenolol Syncope 08/24/2015 Celecoxib *Unknown,Headache 08/24/2015 Alendronate Sodium *Unknown 08/24/2015 Montelukast *Unknown,Headache 08/24/2015 Medications Medication Sig Dispensed Refills Start Date End Date Status aspirin chewable 81 mg chewable tablet Take 81 mg by mouth once daily with a meal. Active FOLIC ACID/MULTIVIT-MIN/LUTEI N (CENTRUM SILVER ORAL) Take 1 Tab by mouth. Active loratadine (CLARITIN) 10 mg tablet Take 10 mg by mouth once daily. Active CALCIUM CARBONATE/VITAMIN D3 (CALCIUM 600 + D,3, ORAL) Take 600 mg by mouth. Active fish oil-omega-3 fatty acids (FISH OIL) 1,200-360 mg cap Take 1 capsule by mouth once daily. Active losartan (COZAAR) 25 mg tablet Take 25 mg by mouth once daily. Active metoprolol tartrate (LOPRESSOR) 25 mg tablet Take 25 mg by mouth 2 times daily. Active ezetimibe (ZETIA) 10 mg tablet Take 10 mg by mouth once daily. Active ascorbic acid (VITAMIN C) 500 mg tablet Take 500 mg by mouth once daily. Active simvastatin (ZOCOR) 40 mg tablet Take 40 mg by mouth at bedtime. Active nitroglycerin (NITROSTAT) 0.[address] 0.4 mg under the tongue every 5 minutes if needed for Chest Pain. Active sennosides (SENNA) 8.6 mg tabletIndications:Const ipation by delayed colonic transit,Constipation due to pain medication therapy Take one or 2 tablets by mouth twice daily to prevent constipation. 40 tablet 0 09/08/2015 Active rx ondansetron (ZOFRAN ODT) 4 mg orally disintegrating tablet (ED DC MED)Indications:Epigast surendra abdominal pain Take 1 tablet by mouth every 8 hours if needed (nausea or vomiting). 4 tablet 03/27/2016 Active pantoprazole (PROTONIX) 40 mg delayed-release tabletIndications:Epiga stric abdominal pain Take 1 tablet by mouth once daily. 20 tablet 03/27/2016 Active Active Problems Problem Noted Date Diagnosed Date Family history of malignant neoplasm of colon Presence of coronary angioplasty implant and gra ft 01/04/2020 Presence of aortocoronary bypass graft 9 Hypertensive heart disease without heart failure 12/22/2017 Type 2 diabetes mellitus 06/02/2017 Gastro-esophageal reflux disease without esophag itis 01/22/2017 Family history of pancreatic cancer 07/17/2016 Altered level of consciousness 07/12/2016 Overview: hospitalized Upper endo PUD 06/2016 [facility] General medical exam 11/13/2015 Hypertension 08/24/2015 Hyperlipidemia 08/24/2015 ASCVD (arteriosclerotic cardiovascular disease) 08/24/2015 Status post abdominal hysterectomy 11/01/2014 Iron deficiency anemia 11/18/2012 Diastolic dysfunction 10/12/2012 Chronic coronary artery disease 10/06/2012 Carotid sinus syndrome 10/04/2011 History of myocardial infarction 08/26/2009 Overview: NSTEMI Osteopenia 04/15/2003 Family History Medical History Relation Name Comments Cancer-pancreatic Brother 1 Cancer-pancreatic Brother 2 Cancer-colon Father Heart failure Mother Relation Name Status Comments Brother 1 Brother 2 Father (Age 74) Mother (Age 99) Social History Tobacco Use Types Packs/Day Years Used Date Smoking Tobacco: Never Smokeless Tobacco: Never Alcohol Use Standard Drinks/Week Comments Yes 0 (1 standard drink = 0.6 oz pur e alcohol) occasional Sex and Gender Information Value Date Recorded Sex Assigned at Not on file Gender Identity Not on file Sexual Orientation Not on file Obstetrics History Last Filed Vital Signs Vital Sign Reading Time Taken Comments Blood Pressure 142/66 12/11/2021 12:02 PM CDT Pulse 51 12/11/2021 12:07 PM CDT Temperature 36.6 ??C (97.8 ??F) 12/11/2021 10:47 AM C DT Respiratory Rate 16 12/11/2021 10:47 AM CDT Oxygen Saturation 100% 12/11/2021 12:07 PM CDT Inhaled Oxygen Concentration - - Weight 68.5 kg (151 lb) 12/11/2021 7:55 AM CDT Height 148.6 cm (4' 10.5) 12/11/2021 7:55 AM CD T Body Mass Index 31.02 12/11/2021 7:55 AM CDT Plan of Treatment Health Maintenance Due Date Last Done Comments Tdap 1958 Depression screening for age 12+ 1959 BMI (ht and wt on same day) for age 18+ 1965 Hepatitis C screening for ag e 18-79 1965 Tetanus booster 1967 Zoster (shingles) series for age 50+ (1 of 2) 1997 DEXA/DXA scan for age 65+ 2012 Pneumococcal series for age 65+ (1 of 1 - PCV) 2012 Influenza for age 65+ 11/30/2023 COVID-19 vaccine series Completed 01/18/20, 01/11/2022, 07/24/2021, Additional history exists Care Teams Parking Inspector Relationship Specialty Start Date End Date Damon Nagel MD [address] [place] [phone] PCP - General Family Practice 12/11/21
--- OUTSIDE RECORDS SUMMARY | 2023-08-21 10:16 | XMS_ITS | Encounter Summary ---
Author Organization [facility] Address [address] [place] [address] Care Team Providers Care Ship Cleaner Name Role Phone Damon Nagel M.D. Primary Care Provider Reason for Visit * Reason Onset Date Comments Rash 07/07/2023 Encounter Details Date Type Department Care Team (Late st Contact Info) Description 07/07/2023 Nurse Triage Department of Family Medicine, [facility], in [place], [place] [address] [place] [phone] Lana Polo R.N. [address] [place] [address] Rash Social History Tobacco Use Types Packs/Day Years [...] often do you attend chur ch or faith services? More than 4 times per year 07/14/2022 Do you belong to any clubs o r organizations such as mu-ism groups, unions, fraternal or athletic groups, or [...] Answer Date Recorded PHQ-2 Score 0 07/07/2023 [facility] Questionnaire Answer Date Recorded [...] place to sleep or slept in a fci (including now)? No 07/14/2022 Nutrition Answer Date [...] Sex Assigned at Female 06/08/2021 1:02 PM ELECTRONICS RECYCLER Gender Identity Female 07/21/2017 4:03 PM CDT Sexual Orientation Straight 07/21/2017 4: 03 PM CDT documented as of this encounter Miscellaneous Notes * Telephone Encounter - Lana Polo R.N. - 07/07/2023 7:58 AM CDT Chief Complaint / Reason for Call Patient is a 78 y.o. female calling regarding Rash. Assessment Concern: Complaints of rash under breasts bilaterally. States area is itchy and yeh. Looks red and has bumps. Denies fever or drainage from rash. Present for: 5 days Home cares tried: Has applied OTC ointments Calling to request: Patient is requesting to schedule an appointment for this concern. The recommended disposition is See a health care provider within 24 hours. Patient was scheduled for an acute appointment via One [employer] Scheduling. Reason for Disposition [1] Shingles rash AND [2] onset > 72 hours ago Protocols used: [id number]-VW Care Advice Patient/Caregiver understands and will follow care advice?: Yes, able to teach back SEE PCP WITHIN 24 HOURS: * IF OFFICE WILL BE OPEN: You need to be examined within the next 24 hours. Call your doctor (or MANIFEST/ORDER ORGANIZER PRINT ORDERS/PA) when the office opens and make an appointment. * IF OFFICE WILL BE CLOSED: You need to be seen within the next 24 hours. A clinic or an urgent care center is often a good source of care if your doctor's office is closed or you can't get an appointment. * IF PATIENT HAS NO PCP: Refer patient to a clinic or urgent care center. Also try to help caller find a PCP for future care. NOTE TO TRIAGER: * Use nurse judgment to select the most appropriate source of care. * Consider both the urgency of the patient's symptoms AND what resources may be needed to evaluate and manage the patient. PAIN MEDICINES: * For pain relief, you can take either acetaminophen, ibuprofen, or naproxen. * They are bwub-mur-feuzyio (OTC) pain drugs. You can buy them at the drugstore. * ACETAMINOPHEN - REGULAR STRENGTH TYLENOL: Take 650 mg (two 325 mg pills) by mouth every 4 to 6 hours as needed. Each Regular Strength Tylenol pill has 325 mg of acetaminophen. The most you should take is 10 pills a day (3,250 mg total). Note: In [place], the maximum is 12 pills a day (3,900 mg total). * ACETAMINOPHEN - EXTRA STRENGTH TYLENOL: Take 1,000 mg (two 500 mg pills) every 6 to 8 hours as needed. Each Extra Strength Tylenol pill has 500 mg of acetaminophen. The most you should take is 6 pills a day (3,000 mg total). Note: In [place], the maximum is 8 pills a day (4,000 mg total). * IBUPROFEN (E.G., MOTRIN, ADVIL): Take 400 mg (two 200 mg pills) by mouth every 6 hours. The most you should take is 6 pills a day (1,200 mg total). * NAPROXEN (E.G., ALEVE): Take 220 mg (one 220 mg pill) by mouth every 8 to 12 hours as needed. Youmay take 440 mg (two 220 mg pills) for your first dose. The most you should take is 3 pills a day (660 mg total). Note: In [place], the maximum is 2 pills a day (one every 12 hours; 440 mg total). * Use the lowest amount of medicine that makes your pain better. DON'T SCRATCH: * Try not to scratch. * Scratching makes the itching worse (the 'Itch-Scratch' cycle). * Cut your fingernails short. Wash hands frequently with an antibacterial soap. This will help prevent a bacterial skin infection. ANTIHISTAMINE MEDICINES FOR SEVERE ITCHING: * For severe itching, you can take either cetirizine, fexofenadine, or loratadine. * They are vmuz-jla-qcqrpaf (OTC) antihistamine medicines. You can buy them at a drugstore or grocery store. * CETIRIZINE (REACTINE, ZYRTEC): The adult dose is 10 mg. You take it once a day. Cetirizine is available in the [place] as Zyrtec and in [place] as Reactine. * FEXOFENADINE (MAMTA): In the [place], the adult dose is one 24-hour tablet (180 mg) once a day. In [place], the adult dose is one 24-hour tablet (120 mg) once a day. Or, you can take one 12-hour (60 mg) tablet 2 times a day. * LORATADINE (ALAVERT, CLARITIN): The adult dose is 10 mg. You take it once a day. Loratadine is available in the [place] as Alavert and Claritin; it is available in [place] as Claritin. CALL BACK IF: * Fever over 100.4 F (38.0 C) * You become worse documented in this encounter Plan of Treatment Not on file documented as of this encounter Visit Diagnoses Not on filedocumented in this encounter Additional Health Concerns Assessment Noted Time PHQ-9 Depression Total Score: 4 12/29/19 19 1:34 PM CDT documented as of this encounter Care Teams Ship Cleaner Relationship Specialty Start Date End Date Damon Nagel M.D. [address] [place] [phone] PCP - General Family Medicine 08/31/19 documented as of this encounter
--- OUTSIDE RECORDS SUMMARY | 2023-08-21 10:16 | XMS_ITS | Encounter Summary ---
Author Organization [facility] Address [address] [place] [address] Care Team Providers Care Global Marketing Manager Name Role Phone Damon Nagel M.D. Primary Care Provider Reason for Referral * Outpatient (Routine) - Authorized Specialty Diagnoses / Procedures Referred By Contac t Referred To Contact Damon Nagel M.D. [address] [place] [phone] [facility] Region Referral ID Status Reason Start Date Expiration Date V isits Requested Visits Authorized [id number] Authorized 08/06/2023 02/04/2025 1 1 Encounter Details Date Type Department Care Team (Late st Contact Info) Description 08/06/2023 Orders Only Department of Family Medicine, [facility], in [place], [place] [address] [place] [phone] Damon Nagel M.D. [address] [place] [phone] Social History Tobacco Use Types Packs/Day Years Used Date Smoking Tobacco: Never Smokeless Tobacco: Never Alcohol Use Standard Drinks/Week Comments Yes 1 (1 standard drink = 0.6 oz pur e alcohol) occassional [facility] Utilities Answer Date Recorded In the past 12 months has e electric, Wick[employer], oil, or water [employer] threatened to shut off services in your [...] often do you attend chur ch or methodist services? More than 4 times per year 07/14/2022 Do you belong to any clubs o r organizations such as methodist groups, unions, fraternal or athletic groups, or [...] Answer Date Recorded PHQ-2 Score 0 07/07/2023 [facility] of Occupat ional [facility] - Occupational Stress Questionnaire Answer Date [...] living situation today? I have a [facility] place to live 08/05/2023 Education Answer Date Recorded What is the highest level of school you have completed or the highest degree you have received? Associate degree: occupational, technical, or vocational program 12/28/2018 Sex and Gender Information Value Date Recorded Sex Assigned at Female 06/08/2021 1:02 PM R&D LAB TECHNICIAN Gender Identity Female 07/21/2017 4:03 PM CDT Sexual Orientation Straight 07/21/2017 4: 03 PM CDT documented as of this encounter Plan of Treatment Scheduled Referrals Name Type Priority Associated Diagnoses Orde r Schedule Primary Care nurse visit (clinic) - [facility] Region; Medicare Annual Wellness Outpatient Referral Routine Expected: 08/07/2023, Expires: 11/05/2024 documented as of this encounter Visit Diagnoses Not on filedocumented in this encounter Additional Health Concerns Assessment Noted Time PHQ-9 Depression Total Score: 4 12/29/19 19 1:34 PM CDT documented as of this encounter Care Teams Global Marketing Manager Relationship Specialty Start Date End Date Damon Nagel M.D. [address] [phone] PCP - General Family Medicine 08/31/19 documented as of this encounter
--- OUTSIDE RECORDS SUMMARY | 2023-08-21 10:16 | XMS_ITS | Encounter Summary ---
Author Organization [facility] Address [address] [place] [address] Care Team Providers Care Plc Technician Name Role Phone Damon Nagel M.D. Primary Care Provider Encounter Details Date Type Department Care Team (Latest Contact Info) Description 08/06/2023 8:50 AM CDT - 08/06/2023 9:02 AM CDT Hospital Encounter Department of Laboratory Medicine in [address] [place] [phone] Damon Nagel M.D. [address] [phone] Diabetes Mellitus Type 2 (HCC); Hyperlipidemia; Hyperlipidemia Mixed; Atherosclerotic Heart Disease Of [place] Coronary Artery Without Angina Pectoris; Coronary Arterial Bypass Graft Status Post Personal History; Anemia Iron Deficiency; Preoperative Examination Cardiovascular; Hypertension Essential Primary Discharge Disposition: Home or Self Care Social History Tobacco Use Types Packs/Day Years Used Date Smoking Tobacco: Never Smokeless Tobacco: Never Alcohol Use Standard Drinks/Week Comments Yes 1 (1 standard drink = 0.6 oz pur e alcohol) occassional [facility] Utilities Answer Date Recorded In the past 12 months has e [employer], gas, oil, or water [employer] threatened to shut off services in your [...] often do you attend chur ch or judaism services? More than 4 times per year 07/14/2022 Do you belong to any clubs o r organizations such as mandaen groups, unions, fraternal or athletic groups, or [...] Answer Date Recorded PHQ-2 Score 0 07/07/2023 [facility] of Occupat ional Health - Occupational Stress [...] your living situation today? I have a [employer] place to live 08/05/2023 Education Answer Date Recorded What is the highest level of school you have completed or the highest degree you have received? Associate degree: occupational, technical, or vocational program 12/28/2018 Sex and Gender Information Value Date Recorded Sex Assigned at Female 06/08/2021 1:02 PM PIN SORTER AND BAGGER Gender Identity Female 07/21/2017 4:03 PM CDT [...] mg SL tabletIndications:Athero sclerotic Heart Disease Of [place] Coronary Artery Without Angina Pectoris Place 1 [...] Procedure Name Priority Date/Time Associated Diagnosis Comments LIPID PANEL, S Routine 08/06/2023 8:58 AM CDT Hyperlipidemia Hyperlipidemia Mixed CBC WITH DIFFERENTIAL, B Routine 08/06/2023 8:58 AM CDT Atherosclerotic Heart Disease Of [place] Coronary Artery Without Angina Pectoris Coronary Arterial Bypass Graft Status Post Personal History Anemia Iron Deficiency Preoperative Examination Cardiovascular HEMOGLOBIN A1C, B Routine 08/06/2023 8:5 8 AM CDT Diabetes Mellitus Type 2 (HCC) BASIC METABOLIC PANEL, S/P Routine 08/06/2023 8:58 AM CDT Atherosclerotic Heart Disease [place] Coronary Artery Without Angina Pectoris Coronary Arterial Bypass Graft Status Post Personal History Preoperative Examination Cardiovascular Hypertension Essential Primary documented in this encounter Results * (ABNORMAL) Basic Metabolic Panel (08/06/2023 8:58 [...] CDT 08/06/2023 1:17 PM CDT Prince Padilla APRN, C.N.P. LAB BLOOD ADD -ON [facility] [address] [place] [address], [place] [facility] [facility] [place] [address] [place] [address] * CBC with Differential, Blood (08/06/2023 8:58 AM CDT) [facility] Hemoglobin 12.7 11.6 - 15.0 g/dL 08/06/2023 [...] Padilla APRN, C.N.P. LAB BLOOD ADD -ON [facility] [address] [place] [address], [facility] [id number] [facility] [place] [address] [place] [address] * Lipid Panel (08/06/2023 8:58 AM CDT) [...] Damon Nagel M.D. LAB BLOOD ADD- ON [facility] [address] [place] [address], [place] [facility] [place] [address] [place] [address] * (ABNORMAL) Hemoglobin A1c (08/06/2023 8:58 AM CDT) Hemoglobin A1c, B 6.6(H) 4.2 - 5.6 % 08/06/2023 3:03 PM CDT OW Comment: Hemoglobin A1c values greater than or equal to 6.5 percent are diagnostic for diabetes mellitus. ??Diagnosis should be confirmed by repeat testing. ??In diabetic patients, HbA1c goals should be discussed with healthcare provider. Blood (Blood, Venous) 08/06/2023 8:58 AM CDT 08/06/2023 1:17 PM CDT Damon Nagel M.D. LAB BLOOD ADD- ON [facility] [address] [place] [id number], [facility] [facility] [place] [address] [place] [id number] documented in this encounter Visit Diagnoses Diagnosis Diabetes Mellitus Type 2 (HCC) Hyperlipidemia Hyperlipidemia Mixed Atherosclerotic Heart Disease Of [place] Coronary Artery Without Angina Pectoris Coronary Arterial Bypass Graft Status Post Personal History Anemia Iron Deficiency Preoperative Examination Cardiovascular Hypertension Essential Primary documented in this encounter Additional Health Concerns Assessment Noted Time PHQ-9 Depression Total Score: 4 12/29/19 19 1:34 PM CDT documented as of this encounter Care Teams Plc Technician Relationship Specialty Start Date End Date Damon Nagel M.D. [address] [phone] PCP - General Family Medicine 08/31/19 documented as of this encounter
--- OUTSIDE RECORDS SUMMARY | 2023-08-21 10:16 | XMS_ITS | Encounter Summary ---
Author Organization [facility] Address [address] [place] [address] Care Team Providers Care Psych Coordinator Name Role Phone Damon Nagel M.D. Primary Care Provider Reason for Referral * Outpatient (Routine) - Closed Specialty Diagnoses / Procedures Referred By Contac t Referred To Contact Diagnoses Atherosclerotic Heart Disease Of [place] Coronary Artery Without Angina Pectoris Coronary Arterial Bypass Graft Status Post Personal History Preoperative Examination Cardiovascular Procedures ECG 12 Lead Prince Padilla APRN, C.N.P. [address] [place] [address] [facility] Referral ID Status Reason Start Date Expiration Date Visits Re quested Visits Authorized [id number] Closed 07/16/2023 07/15/2024 1 1 Reason for Visit * Reason Comments Follow-up * Outpatient (Routine) - Closed Specialty Diagnoses / Procedures Referred By Contac t Referred To Contact Cardiovascular Disease Prince Padilla APRN, C.N.P. [address] [place] [phone] [facility] Region Referral ID Status Reason Start Date Expiration Date Visits Re quested Visits Authorized [id number] Closed 07/15/2022 07/14/2025 1 1 Encounter Details Date Type Department Care Team (Latest Contact Info) Description 07/16/2023 10:15 AM CDT Office Visit Department of Cardiovascular Diseases in [place], [place] [address] [place] [address] Prince Padilla, DEISI, C.N.P. [address] [place] [phone] Atherosclerotic Heart Disease Of [place] Coronary Artery Without Angina Pectoris (Primary Dx); Coronary Stent Status Post; Coronary Arterial Bypass Graft Status Post Personal History; Preoperative Examination Cardiovascular; Hypertension Essential Primary; Hyperlipidemia; Diabetes Mellitus Type 2 (HCC); Anemia Iron Deficiency Social History Tobacco Use Types Packs/Day Years Used Date Smoking Tobacco: Never Smokeless Tobacco: Never Tobacco Cessation:Counseling Given: Not Answered Alcohol Use Standard Drinks/Week Comments Yes 1 [...] often do you attend chur ch or cheondoism services? More than 4 times per year 07/14/2022 Do you belong to any clubs o r organizations such as hindu groups, unions, fraternal or athletic groups, or [...] Answer Date Recorded PHQ-2 Score 0 07/07/2023 [facility] - Occupational Stress [...] place to sleep or slept in a correction (including now)? No 07/14/2022 Nutrition Answer Date [...] Sex Assigned at Female 06/08/2021 1:02 PM [employer] Gender Identity Female 07/21/2017 4:03 PM CDT Sexual Orientation Straight 07/21/2017 4: 03 PM CDT documented as of this encounter Last Filed Vital Signs Vital Sign Reading Time Taken Comments Blood Pressure 131/76 07/16/2023 10:00 AM CDT Pulse 58 07/16/2023 10:00 AM CDT Temperature - - Respiratory Rate - - Oxygen Saturation - - Inhaled Oxygen Concentration - - Weight 71.4 kg (157 lb 6.5 oz) 07/16/2023 10:00 AM CDT Height - - Body Mass Index 33.31 07/07/2023 10:22 AM CDT documented in this encounter Progress Notes * Prince Padilla, DEISI, C.N.P. - 07/16/2023 10:15 AM CDT SUBJECTIVE CHIEF COMPLAINT/REASON FOR VISIT Routine follow-up heart disease, cardiovascular NELSON HISTORY OF PRESENT ILLNESS Carline Gibbons is seen today for a pre scheduled routine follow-up of her underlying heart disease. I last saw her in June of 2022 and she was doing well at that time. She also tells me today that she is preparing for left knee surgery in about a month. This is planned with Dr. Delcid from the [facility]. He also performed her left leg surgery many years ago after a traumatic fall. She has been having increasing knee pain and now the knee joint itself is problematic from an osteoarthritic standpoint in complicating matters is the prior hardware from her traumatic injury. Fortunately, from a cardiopulmonary standpoint she tells me that she has been feeling well. She andher were down in [place] for the winter in she reports that they remained active. She wouldwalk at least daily and often times twice daily and had not been experiencing any new or concerningcardiopulmonary symptoms. They estimate the walk is anywhere from 2-3 miles and [place] and when they walk at home they often times go for at least 1.5 miles. She has not had any chest pain and denies any new shortness of breath, PND, orthopnea, new weight gain, or new lower extremity edema. She has a personal history of a NSTEMI with a drug-eluting stent to the LAD in July of 2009 followedby a CABG x2 (SCHMITT-LAD and radial graft-OM) on October 14, 2012. She is treated for hypertension, hyperlipidemia, type 2 diabetes, calcified thoracic aorta, chronic right bundle branch block, obesity, os teoarthritis, and osteopenia. She is planning on seeing Dr. Nagel for a routine follow-up again in couple of weeks with plans for a NELSON also at that time. CURRENT MEDICATIONS Current Outpatient Medications: Accu-Chek Fastclix Lancet Drum, USE TO CHECK BLOOD SUGAR ONCE DAILY, Disp: 100 each, Rfl: 3 ASCORBIC ACID-ASCORBATE CALC ORAL, Take 1 tablet by mouth daily. 500 mg , Disp: , Rfl: aspirin [address] tablet, Take 1 tablet by mouth daily., Disp: , Rfl: blood sugar diagnostic strips (Accu-Chek Guide test strips), USE TO TEST ONCE EVERY DAY, Disp: 100 strip, Rfl: 3 blood-glucose meter kit, Check blood sugar everyday, Disp: 1 each, Rfl: 0 CALCIUM CARB/VIT D3/MINERALS (CALCIUM-VITAMIN D ORAL), Take by mouth., Disp: , Rfl: chlorthalidone (HYGROTON) 25 mg tablet, Take 1 tablet (25 mg total) by mouth daily., Disp: 90 tablet, Rfl: 4 loratadine 10 mg capsule, Take 10 mg by mouth daily., Disp: , Rfl: losartan (COZAAR) 100 mg tablet, Take 1 tablet (100 mg total) by mouth daily., Disp: 90 tablet, Rfl: 4 MULTIVITAMIN WITH MINERALS ORAL, daily., Disp: , Rfl: nitroglycerin (NITROSTAT) 0.4 mg SL tablet, Place 1 tablet (0.4 mg total) under the tongue every 5 (five) minutes as needed for chest pain., Disp: 25 tablet, Rfl: 1 potassium chloride (KLOR-CON M/KDUR) 20 mEq ER tablet, Take 1 tablet (20 mEq total) by mouth daily., Disp: 90 tablet, Rfl: 4 rosuvastatin (CRESTOR) 40 mg tablet, Take 1 tablet (40 mg total) by mouth daily., Disp: 90 tablet, Rfl: 4 ALLERGIES Allergies Allergen Reactions Oxycodone Other (see comments) Alendronate GI intolerance Atenolol Other (see comments) Celecoxib GI intolerance and Headache Montelukast Shortness of breath (Reselect Reaction) and Headache Zetia [Ezetimibe] Other (see comments) and Cough Patient has tried Zetia twice both times resulting in dry cough and chest pressure MEDICAL HISTORY Past Medical History: Diagnosis Date Coronary Artery Disease Post Myocardial Infarction 08/26/2009 CAD Post Myocardial Infarction Diabetes Mellitus Type 2 (HCC) 08/14/2015 Hyperlipidemia unknown Hypertension 06/27/2008 Hypertension Osteopenia 05/04/2004 Other Injury Of Unspecified Body Region 08/15/[address] Elevation Myocardial Infarction Of Unspecified Site (HCC) 08/26/09 Ulcer Peptic 06/2016 With GI bleed and hospitalization [facility] SURGICAL HISTORY Past Surgical History: Procedure Laterality Date APPENDECTOMY [...] Plateau repair - Dr. Delcid VAGINAL DELIVERY OBJECTIVE VITAL SIGNS BP 131/76 (BP Location: Right arm, Patient Position: Sitting, Cuff Size: Regular) Pulse (!) 58 Wt 71.4 kg BMI 33.31 kg/m?? PHYSICAL EXAMINATION General: Well-appearing in no acute distress, alert and oriented x 3. Vessels: No JVD or carotid bruits. Heart: Regular rate and rhythm. Normal S1-S2. No murmurs. Lungs: Clear bilaterally. Abdomen: Nondistended. Extremities: No pitting edema. DIAGNOSTICS Lab Results Component Value Date CREATININE 0.73 01/31/2023 BUN 21 01/31/2023 NA 141 01/31/2023 KSERUM 3.5 12/11/2021 KBLOOD 3.7 10/20/2012 KPLASMA 4.1 01/31/2023 CL 100 01/31/2023 CO2 29 12/11/2021 Lab Results Component Value Date WBC 5.1 12/11/2021 HGB 11.0 (L) 12/11/2021 HCT 32.0 (L) 12/11/2021 MCV 91 12/11/2021 PLT 224 12/11/2021 Lab Results Component Value Date HGBA1C 6.5 (H) 01/31/2023 Echocardiogram August 29, 2021 Final Impressions 1. Transthoracic outreach echo interpretation. 2. Normal left ventricular chamber size, no regional wall motion abnormalities, calculated 2-D linear ejection fraction 59%. 3. Sigmoid ventricular septum with basal septal prominence: 14 mm. No systolic anterior motion of mitral valve or dynamic left ventricular outflow track obstruction demonstrated. 4. Normal left ventricular filling pressure at rest. 5. Normal right ventricular chamber size, normal systolic function, estimated right ventricular systolic pressure 30 mmHg (right atrial pressure of 5 mmHg). 6. No hemodynamically significant valvular heart disease. 7. No pericardial effusion. 8. Compared to the report of 08/27/2009 the following changes have occurred: regional wall motion abnormalities not demonstrated in the current echocardiogram; decreased left ventricular filling pressure. Side by side comparison of images performed. ASSESSMENT / PLAN #1 Atherosclerotic Heart Disease Of [place] Coronary Artery #2 Coronary Stent (2009) #3 Coronary Arterial Bypass Graft (2012) She does not report any new or concerning cardiopulmonary symptoms over the last year. Despite her ongoing knee pain she does still try to maintain an active lifestyle. She is on good medical therapyfor her coronary artery disease including a low-dose aspirin as well as high-intensity statin therapy. These things should continue indefinitely as long as they are well tolerated. I would recommend continued efforts at trying to follow a healthy cardiovascular diet as well as continuing to maintain regular physical activity with goals of 150 minutes of moderate intensity exercise weekly. #4 Preoperative Examination Cardiovascular She reports no new or concerning cardiopulmonary symptoms. She is able to achieve and exceed 4 METSwithout cardiopulmonary symptoms. I will get an updated 12 lead ECG and if this remains unchanged from her baseline she should not require additional perioperative cardiovascular testing prior to surgery. #5 Hypertension Essential Primary Her blood pressure is borderline elevated today but she reports monitoring regularly at home and she brings in a very well kept copy of her readings dating all the way back to last summer. In review of this her blood pressure is definitely less than 130/80 on average at home. We will continue her current medical therapy without additional changes. I will also get an updated BMP prior to her visitwith her primary care physician as well as for pre anesthesia evaluation. #6 Hyperlipidemia Her last lipid panel was a bit above goal but she is on maximum dose rosuvastatin and has an allergy to ezetimibe. We will continue with the rosuvastatin and she has an updated lipid panel coming up in a few weeks. We will continue with statin therapy as well as trying to optimize lifestyle therapyfor management of her lipids with a goal LDL less than 70. #7 Diabetes Mellitus Type 2 (HCC) Her last A1c was excellent at 6.5% and she has an updated A1c pending prior to her primary care follow-up visit in a few weeks. #8 Anemia She has had a borderline anemia, I will update a CBC prior to her visit with primary care. PLAN FOR FOLLOW-UP: Recommend follow-up by Cardiology in 1 year. documented in this encounter Plan of Treatment Not on file documented as of this encounter Results * ECG 12 Lead (08/06/2023 9:15 AM CDT) Ventricular Rate ECG/Min 60 BPM MUSE [place] Interval 142 ms MUSE QRSD Interval 140 ms MUSE QT Interval 444 ms MUSE QTC Interval 444 ms MUSE P [place] 71 degrees MUSE R [place] 84 degrees MUSE T Wave [place] 32 degrees MUSE 08/06/2023 9:15 AM CDT [...] found Reviewed by SINAN Ho Prince Padilla APRN C.N.P. ECG ORDERABLE S MUSE NA * (ABNORMAL) Basic Metabolic Panel (08/06/2023 8:58 [...] Padilla APRN, C.N.P. LAB BLOOD ADD -ON Performing Organization Address City/State/[facility] Co de Phone Number [facility] [address], [place] [address], [facility] [place] [address] [place] [address] * CBC with Differential, Blood (08/06/2023 8:58 [...] AM CDT 08/06/2023 8:58 AM CDT Prince C Valerie LIPSCOMB, C.N.P. LAB BLOOD ADD -ON Performing Organization Address City/State/[facility] Co de Phone Number [facility] [address] [place] [address], [facility] [address] [facility] in [place] [address] [place] [address] documented in this encounter Visit Diagnoses Diagnosis Atherosclerotic Heart Disease Of [place] Coronary Artery Without Angina Pectoris- Primary Coronary Stent Status Post Coronary Arterial Bypass Graft Status Post Personal History Preoperative Examination Cardiovascular Hypertension Essential Primary Hyperlipidemia Diabetes Mellitus Type 2 (HCC) Anemia Iron Deficiency Atherosclerotic Heart Disease Of [place] Coronary Artery Without Angina Pectoris Coronary Arterial Bypass Graft Status Post Personal History Preoperative Examination Cardiovascular documented in this encounter Additional Health Concerns Assessment Noted Time PHQ-9 Depression Total Score: 4 12/29/19 19 1:34 PM CDT documented as of this encounter Care Teams Psych Coordinator Relationship Specialty Start Date End Date Damon Nagel M.D. [address] [place] [phone] PCP - General Family Medicine 08/31/19 documented as of this encounter
[2023-08-21] MEDS: ACETAMINOPHEN 500 MG TABLET 1000 MG PO ×3 (10:31→23:29)
[2023-08-21] MEDS: SODIUM CHLORIDE 0.9 % (FLUSH) 10 ML SYRINGE IVF (11:11)
--- NOTE | 2023-08-21 11:44 | CRLHL7_ITS ---
For Patients: As a result of the Cures Act, medical imaging exams and procedure reports are released immediately into your electronic medical record. You may view this report before your referring provider. If you have questions, please contact your health care provider. Indication: INTRA OP TKA HARDWARE REMOVAL EXAM Technique: Seven fluoroscopic images of the left knee. Fluoroscopic time 10.4 seconds. IMPRESSION: Fluoroscopic guidance for hardware removal and placement of revised hip arthroplasty hardware. Dictated by Bronson Caba MD @ 08/22/2023 9:55:34 AM (Electronically Signed)
[2023-08-21] MEDS: MIDAZOLAM HCL 1 MG/ML inj IVP (11:49)
[2023-08-21] MEDS: fentaNYL 100 MCG/2 ML inj IVP (11:49)
--- NOTE | 2023-08-21 11:56 | P.NB_ITS ---
Nerve Block Nerve Block Time Seen by Provider: 11:52 Date Seen: 08/21/23 Type of block requested by surgeon for post-operative analgesia: adductor canal Side: left Time out performed: Yes Verification of patient name: Yes Verification of date of : Yes Site marking: site marked Name of person performing procedure: Scott Continuous monitoring Was continuous monitoring of O2 sat, B/P, curriculum development specialist, recorded every 15 minutes?: Yes Procedure Checklist: sterile prep, needles and gloves Ultrasound guided. Images saved: Yes Medications given in 5ml increments after negative aspiration: Ropivicaine %: 0.5 mL: 20 Needle gauge: 20 Decadron (mg): 10 Precedex (mcg): 25 Patient tolerated procedure well: Yes Additional comments: Needle noted adjacent to nerve Block Charges Block Charge (with Pro Fee): Femoral Nerve Use of Ultrasound Machine for Block: Yes- US Guidance/pain block
--- NOTE | 2023-08-21 11:57 | P.NB_ITS ---
Nerve Block Nerve Block Time Seen by Provider: 11:52 Date Seen: 08/21/23 Type of block requested by surgeon for post-operative analgesia: geniculars Side: left Time out performed: Yes Verification of patient name: Yes Verification of date of : Yes Site marking: site marked Name of person performing procedure: Scott Continuous monitoring Was continuous monitoring of O2 sat, B/P, cafeteria monitor, recorded every 15 minutes?: Yes Procedure Checklist: sterile prep, needles and gloves Medications given in 5ml increments after negative aspiration: Ropivicaine %: 0.5 mL: 9 Needle gauge: 25 Patient tolerated procedure well: Yes Block Charges Block Charge (with Pro Fee): Genicular Nerve Block Use of Ultrasound Machine for Block: No
--- NOTE | 2023-08-21 11:57 | W.ANESCHARGE ---
Anesthesia Charges Start Date/Time Anesthesia Start Date: 08/21/23 Anesthesia Start Time: 11:57 Stop Date/Time Anesthesia Stop Date: 08/21/23 Anesthesia Stop Time: 16:25 Summary Extremes of Age - Over 70 or under 1: MDA
--- NOTE | 2023-08-21 11:58 | SUR.PREOP ---
TIME?OUT:?1149 PT/RN/MDA?VERIFICATION?OF?SURGICAL?SITE,?PROCEDURE,?AND?CONSENT OBTAINED?PRIOR?TO?INVASIVE?PROCEDURE.
[2023-08-21] MEDS: CEFAZOLIN 2 GM INJ IVP (12:05)
[2023-08-21] MEDS: TRANEXAMIC ACID 100 MG/ML INJ 1000 MG IV (12:12)
--- NOTE | 2023-08-21 14:17 | PM.IMCN1 ---
Date of Consult Patient: [facility] Patient Consult date: 08/21/23 Requesting Physician: Orthopedics Primary Care Provider: Not a Local Provider Consult Narrative Reason for consult: Medical management Narrative: Carline Gibbons is a 78 year old female past medical history significant for hypertension, hyperlipidemia, PUD, GERD, carotid sinus syndrome, status post CABG, type 2 diabetes mellitus, diet controlled is POD#0 s/p left TKA with hardware removal. There have been no perioperative complications or nursing concerns reported. Estimated total blood loss documented as 100 ml. Updated and reviewed the active medical problems, past medical history, past surgical history, social history, allergies and medications in our electronic EMR. Postoperatively, patient is seen with and daughter at bedside and reports feeling well. Denies headache or dizziness. No chest pain or shortness of breath. Pain is currently adequately managed. Tolerating orals without nausea or vomiting. Review of Systems Narrative: REVIEW OF SYSTEMS: Complete review of systems performed and negative unless otherwise stated in HPI or below. PFSH [facility] Medical History Carotid sinus syndrome ?G90.01 - Carotid sinus syncope (ICD-10) GERD (gastroesophageal reflux disease) ?K21.9 - Gastro-esophageal reflux disease without esophagitis (ICD-10) Peptic ulcer disease ?K27.9 - Peptic ulcer, site unspecified, unspecified as acute or chronic, without hemorrhage or perforation (ICD-10) Type 2 diabetes mellitus ?E11.9 - Type 2 diabetes mellitus without complications (ICD-10) Hypertension ?I10 - Essential (primary) hypertension (ICD-10) High cholesterol ?E78.00 - Pure hypercholesterolemia, unspecified (ICD-10) Tricompartment osteoarthritis of left knee ?M17.12 - Unilateral primary osteoarthritis, left knee (ICD-10) 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 ?S83.512A - Sprain of anterior cruciate ligament of left knee, initial encounter (ICD-10) Bilateral primary osteoarthritis of knee ?M17.0 - Bilateral primary osteoarthritis of knee (ICD-10) Arthritis of left midfoot ?M19.072 - Primary osteoarthritis, left ankle and foot (ICD-10) Surgical History S/P rotator cuff repair ?Z98.890 - Other specified postprocedural states (ICD-10) Status post arthroscopy of right shoulder (06/11/11) ?Z98.890 - Other specified postprocedural states (ICD-10) History of appendectomy ?Z90.49 - Acquired absence of other specified parts of digestive tract (ICD-10) History of hysterectomy ?Z90.710 - Acquired absence of both cervix and uterus (ICD-10) S/P ORIF (open reduction internal fixation) fracture (08/16/05) ?Z98.890 - Other specified postprocedural states (ICD-10) ?Z87.81 - Personal history of (healed) traumatic fracture (ICD-10) S/P hardware removal (09/02/06) ?Z98.890 - Other specified postprocedural states (ICD-10) History of arthroscopy of left knee (03/15/16) ?Z98.890 - Other specified postprocedural states (ICD-10) History of coronary artery bypass surgery ?Z95.1 - Presence of aortocoronary bypass graft (ICD-10) Family History Other Pancreatic cancer Social History What is your current living situation?: I presently have a place to live Problems where you live: no known problems In the past 12 months, utilities in danger of being shut off: no In past 12 months, lack of transportation kept you from medical appts, meetings, work, or getting things needed for daily living: no In the past 12 mos, have been you worried that your food would run out before you had money to buy more?: never true In the past 12 mos, the food you bought just didn't last and you didn't have money to buy more?: never true Smoking Status: Never smoker How often do you have a drink containing alcohol: never AUDIT-C Alcohol total score: 0 Non-prescribed substance use: denies use Caffeine: No How often does anyone, including family, friends and others, physically hurt you: never How often does anyone, including family, friends and others, insult or talk down to you: never How often does anyone, including family, friends and others, threaten you with harm: never How often does anyone, including family, friends and others, scream or curse at you: never Meds Home Medications and Allergies Home Medications ?Medication ?Instructions ?Recorded ?Confirmed ?Type ascorbic acid (vitamin C) 500 mg mg PO 01/29/23 06/18/23 History capsule aspirin 81 mg tablet,delayed 81 mg PO DAILY 01/29/23 08/21/23 History release chlorthalidone 25 mg tablet 25 mg PO DAILY 01/29/23 08/21/23 History loratadine 10 mg tablet (Claritin) 10 mg PO DAILY 01/29/23 08/21/23 History losartan 100 mg tablet 100 mg PO DAILY 01/29/23 08/21/23 History drzxyofv-uqec-kxnu 8 mg-folic 400 1 tab PO DAILY 01/29/23 08/21/23 History mcg-K 50 mcg-lutein 300 mcg tablet (Centrum Silver Women) potassium chloride 20 mEq 20 meq PO DAILY 01/29/23 08/21/23 History tablet,extended release rosuvastatin 40 mg tablet 40 mg PO DAILY 01/29/23 08/21/23 History Allergies Allergy/AdvReac Type Severity Reaction Status Date / Time montelukast Allergy Severe Difficulty Verified 08/21/23 11:13 Breathing tramadol Allergy Severe impending Verified 08/21/23 11:13 doom alendronate sodium Allergy Intermediate GI upset Verified 08/21/23 11:13 celecoxib Allergy Mild GI upset Verified 08/21/23 11:13 ezetimibe [From Zetia] Allergy dry cough Verified 08/21/23 11:13 and chest pressure oxycodone AdvReac Intermediate Pt went Verified 08/21/23 11:13 through withdrawl from this med Exam Narrative: Exam Narrative: PHYSICAL EXAM General: Pleasant, conversant, NAD HEENT: Normocephalic, atraumatic, sclera white, EOMI, oral mucosa moist Cardiovascular: RRR, S1S2. No pitting edema Pulmonary: CTA bilaterally without rhonchi, rales, expiratory wheezes. No dyspnea Abdominal: Soft, nondistended, NTTP Neurological: Alert, answering questions appropriately, cranial nerves intact, no focal findings Extremities: No gross joint deformity or swelling. Postoperative dressing in place, dry. Neurovascularly intact Skin: Warm, dry. Const: Vital Signs, click to edit/add: Vital Signs - 24 hr 08/21/23 11:10 08/21/23 11:49 Temperature 98.7 F Pulse Rate 60 54 L Respiratory Rate 16 16 Blood Pressure 151/68 H 135/53 L Pulse Oximetry 98 100 Oxygen Delivery Me thod Room Air Nasal Cannula Oxygen Flow Rate 2 Assessment and Plan Assessment and plan (1) Osteoarthritis of left knee: Problem comment: -POD#0 s/p left TKA, hardware removal -perioperative management including pain management and anticoagulation per Orthopedic surgery -encourage postoperative pulmonary hygiene -PT OT consults -plan to discharge home with family tomorrow Status: Acute (2) Hypertension: Problem comment: Monitor postoperatively. Resume losartan, chlorthalidone, potassium chloride tomorrow morning Status: Acute (3) Type 2 diabetes mellitus: Problem comment: Diet controlled, most recent A1c 6.6. Encourage diabetic diet Resume antihypertensives, statin tomorrow Status: Acute Total Time Spent Total Time Spent: Total time spent caring for the patient today was 45 minutes. This includes time spent for the visit reviewing the chart, time spent during the visit, time spent after the visit and documentation and planning in coordination of care.
--- NOTE | 2023-08-21 15:24 | CRLHL7_ITS ---
For Patients: As a result of the Cures Act, medical imaging exams and procedure reports are released immediately into your electronic medical record. You may view this report before your referring provider. If you have questions, please contact your health care provider. Indication: Postop Technique: Two views left knee Findings/Impression: Hardware from a left total knee arthroplasty is in satisfactory position. Bone alignment is normal. No sign of acute fracture. Postop changes are within normal limits. Dictated by Bronson Caba MD @ 08/22/2023 10:02:29 AM (Electronically Signed)
--- NOTE | 2023-08-21 15:26 | P.ORPRC_ITS ---
Procedure Note Date of procedure: 08/21/23 Procedure: PREOPERATIVE DIAGNOSIS: Left knee posttraumatic arthritis, retained hardware POSTOPERATIVE DIAGNOSIS: Left knee posttraumatic arthritis, retained hardware NAME OF OPERATION: Hardware removal deep, Left total knee arthroplasty SURGEON: Dave Delcid MD SPLITTING MACHINE FEEDER: PATRICIA Banks PA-C ANESTHESIA: Spinal ESTIMATED BLOOD LOSS: 100 mL COMPLICATIONS: None SPECIMENS: None DRAINS: None PREOPERATIVE ANTIBIOTICS: Ancef 1 g, antibiotic impregnated cement IMPLANTS: 1. J[employer]J Attune revision CRS #4 posterior stabilized femur, with a 14 mm x 50 mm cemented stem 2. #3 revision CRS cemented rotating platform tibia, with a 29 mm sleeve and a 60 mm x 12 mm uncemented stem 3. #4 posterior stabilized, 8 mm rotating platform, constrained polyethylene 4. 38 patella INDICATIONS: The patient is a 78-year-old who sustained an ipsilateral left lower extremity tibial plateau and tibial shaft fracture 18 years ago. She underwent IM nailing and ORIF by me. She has done okay over the years, however now has severe, unrelenting pain secondary to end-stage left knee posttraumatic arthritis. Despite appropriate nonoperative management, including activity modification, anti-inflammatories, aizg-yil-bkzbwza pain medication, bracing, physical therapy, and injections they continue to have pain and disability. Operative intervention was offered. The risks, benefits and expected outcomes were discussed in detail. These included but were not limited to: Infection, bleeding, injury to blood vessel or nerve, venous thromboembolism. All questions were answered to their satisfaction. Use of an surgical physician assistant was necessary throughout the case for patient positioning and safety, soft tissue retraction, and closure. A modifier 22 should be added to this case. Given this patient's history of previous surgery there was a marked amount of scarring. This made the dissection more difficult. Additionally, hardware removal was required to convert to total knee arthroplasty. This added 50% more time to the case. Finally, with hardware removed there are significant stress risers in tibia. This necessitated revision components to reduce the risk of periprosthetic fracture. This added more time and cost to the case. PROCEDURE: Spinal anesthesia was administered. The patient was placed supine on the operating table. The surgical physician assistant made sure the patient was positioned appropriately. The lower extremity was prepped and draped in the usual sterile fashion. The limb was exsanguinated with the Florentin bandage. The pneumatic tourniquet was inflated to 300 mmHg. Examination under anesthesia shows grade 2 instability to both varus and valgus stress at 30?. Therefore, we elected to proceed with more constrained polyethylene. The previously placed midline anterior longitudinal incision was utilized. Subcutaneous dissection was sharply taken through fascial layer 1. Full- thickness medial and lateral flaps were elevated. The IM nail interlocking screw heads were exposed medially. These were removed intact. We elevated the anterior compartment off of the proximal tibia in a subperiosteal fashion to expose the plate and screws. An osteotome and rongeur were used to expose the proximal screws. The 3 proximal screws and the next most distal screw were removed intact. A subvastus approach to the knee was utilized. The infrapatellar fat pad and scarring in this area were sharply excised. The proximal part of the nail was exposed with an osteotome and rongeur. The universal extractor was screwed onto the nail. We then tapped the nail out of the tibia. Attention was then turned to the knee replacement The menisci and cruciate ligaments were sharply d?brided. Marginal osteophytes were d?brided with the rongeur. The drill was used to penetrate the femoral canal. The canal was aspirated and irrigated with pulse lavage. The intramedullary femoral guide was placed for a 5-degree valgus cut, removing 10 mm off the distal femur. The saw was used to make the cut. Whitesides line and the trans epicondylar axis were marked. The femoral sizing guide was pinned onto the distal femur. Three degrees of external rotation nicely parallels the transepicondylar axis. Pins were placed for posterior referencing. The four-in-one cutting guide was pinned onto the distal femur. The anterior, posterior, and chamfer cuts were made. The surgical physician assistant protected the collateral ligaments. The revision trial was placed. The box cuts were made. The drill was used x2. The stemmed, boxed trial was placed and was an excellent fit. Attention was then turned to the proximal tibia. The extramedullary tibial guide was placed for a neutral varus/valgus cut with 7 degrees of posterior slope, removing 2 mm based off the medial tibial surface. The surgical physician assistant protected the collateral ligaments and the neurovascular bundle. The saw was used to make the cut. Trial components were placed. Because the proximal portion of the plate blocked sliding the tray far enough lateral it was difficult to get the tray centered on the tibial shaft. This moved our tibial stem too far medially. Additionally, length of the stem was between the shortest and next longest stem to bypass screw holes in the tibia. We used the image intensifier throughout the case to gauge the length of the tibial stem. It was felt that a short, cemented stem was not the solution in this case. The refore, we removed the remaining screws in the distal part of the plate and removed the plate. We reamed the canal by hand to 13 mm. The proximal reamer was used. The 29 mm broach was placed. Quality of the proximal tibial bone was excellent. We recut the proximal tibia with the broach in place, removing 1-2 more mm. With the lateral fixation plate removed we were now better able to center the tibial tray. We placed trial components. The knee was nicely balanced in both flexion and extension. C-arm images show the tip of the tibial stem bypasses the most distal screw hole by more than 2 shaft diameters. At this point the tourniquet was released at 117 minutes. The trial components were removed. The tray was placed in appropriate rotation The punch was used. Attention was then turned to the patella. Poarch patellar thickness was 22 mm. The Tegoster claw resection guide was used with the 9.5 mm perla. The saw was used to make the cut. Drill holes were made by the surgical physician assistant. The trial was placed and was an excellent fit. We irrigated the wound with normal saline via pulse lavage. We bone grafted the screw holes in the tibial shaft with cancellous autograft. The fascia over the anterior compartment was closed with a 0 Vicryl in an interrupted vthpje-ik-checz fashion. This caused the lateral retinaculum to be tight. At this point the tourniquet was down for 30 minutes. We therefore exsanguinated the leg and reinflated the tourniquet to 300 mmHg. Cancellous surfaces were irrigated with pulse lavage and thoroughly dried by the surgical physician assistant. We cemented the tibial component, then the femoral component. We placed a trial 8 mm polyethylene onto the tibial tray. The knee was brought into full extension. We then cemented the patellar component. Excessive cement was removed. The cement was allowed to harden. The knee was taken through a range of motion and was found to be nicely balanced in both flexion and extension. Therefore, we placed the 8 mm polyethylene. The lateral retinaculum is tight from the anterior compartment repair. Therefore, we did a conservative outside in lateral retinacular release. This nicely balanced the patella which now tracks centrally. The surgical physician assistant did a three minute dilute Betadine solution soak. The surgical physician assistant irrigated the wound with 3 liters of normal saline via pulse lavage. The surgical physician assistant reapproximated the extensor mechanism with #1 Vicryl in an interrupted [id number] fashion. The surgical physician assistant then ran the extensor mechanism with a #1 PDO Stratafix. The surgical physician assistant closed the subcutaneous tissues with a 3-0 Stratafix and the skin with a running 3-0 Stratafix in a subcuticular fashion. Glue was used to seal the skin. The surgical physician assistant placed a dry dressing. Sponge and needle counts were correct x2. The patient tolerated the procedure well. There were no apparent complications. They were carefully transferred to the hospital bed and taken to the postanesthesia care unit in satisfactory condition. PLAN: The patient will be mobilized with physical therapy. Aspirin will be used for DVT prophylaxis. They will be discharged to home once medically appropriate.
[2023-08-21] MEDS: CEFAZOLIN 1 GM inj IVP (16:14)
--- NOTE | 2023-08-21 16:35 | W.ANESCHARGE ---
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
--- NOTE | 2023-08-21 18:48 | PC.NURSE ---
End of Shift: The patient arrived to the unit @ 1700...Awake, alert and cooperative with cares. The patient denied pain.. L knee dressing is CDI no drainage noted, Ice pack to L knee as well. IV fluids remain in place. The patient is tolerating ice chips and fluids... although poor PO intake so far. Offered crackers, but the patient denied at the time they were offered. Meal tray is in the kitchenette for when she would like to eat. Most recent pain check the patient reported a mild ache in her L knee. Scheduled tylenol was given. The patients and daughter are at the bedside. Call light within reach. Yajaira ESPINOZA BSN
[2023-08-21] MEDS: LACTATED RINGERS 1000 ML 1,000 ML 75 ML IV (20:04)
[2023-08-21] MEDS: HYDROmorphone 2 MG TABLET PO (21:29)
[2023-08-21] MEDS: SENNOSIDES 1 TAB TABLET 2 TAB PO (21:29)
[2023-08-21] MEDS: ASPIRIN 81 MG TABLET EC PO (21:29)
[2023-08-21] MEDS: CEFAZOLIN 2 GM in 0.9 % SODIUM CHLORIDE Mini-bag 100 ML IVPB (21:36)
[2023-08-22 03:00] VITALS: BP 138/69; PULSE 100; RESP 16; TEMP 36.2; O2SAT 98
[2023-08-22] MEDS: HYDROmorphone 2 MG TABLET PO ×2 (03:35→09:03)
[2023-08-22] MEDS: ACETAMINOPHEN 500 MG TABLET 1000 MG PO (06:05)
[2023-08-22] MEDS: CEFAZOLIN 2 GM in 0.9 % SODIUM CHLORIDE Mini-bag 100 ML IVPB (06:06)
--- NOTE | 2023-08-22 06:19 | PC.NURSE ---
SHIFT NOTE : Pt A&O, pleasant. Denies SOB, CP, N/V. VSS on RA. Moving great with a walker, gait belt, and SBA. Surgical dressing is C/D/I, CMS intact. Pt reports adequate pain control with PRN PO Dilaudid. Active ice on continuously. IS encouraged. Pt passing gas, tolerating a regular diet well. Pt plans to d/c home with today.
[2023-08-22 06:21] LABS: Hematocrit 30.4 % (33.0-51.0); Hemoglobin* 10.2 gm/dL (12.0-16.0); Immature Granulocytes Pct Auto 0.9 %; Mean Corpuscular HGB Conc 34 gm/dL (32-36); Mean Corpuscular Hemoglobin 30 pg (26-34); Mean Corpuscular Volume 91 fL (80-100); Monocytes Percent Auto 5.7 % (0.0-11.0); Neutrophils Percent Auto 85.4 % (42.0-72.0); Platelet Count* 245 K/uL (140-440); RDW Coefficient of Variation % 12.8 % (11.5-15.5); Red Blood Count 3.35 m/uL (4.00-5.20); White Blood Count* 11.66 K/uL (4.50-11.00)
[2023-08-22 06:22] LABS: Slide Review Reflex No
[2023-08-22 06:33] LABS: Potassium* 3.3 mmol/L (3.6-5.1); Sodium* 134 mmol/L (135-149)
[2023-08-22 06:36] LABS: Creatinine* 0.6 mg/dL (0.5-1.5); Est. Creatinine Clearance* 54.25; Estimated Glomerular Filt Rate 93 ml/min
[2023-08-22 06:37] LABS: Blood Urea Nitrogen* 18 mg/dL (7-30)
[2023-08-22 06:44] LABS: INR 0.95 (0.91-1.10); Prothrombin Time 13.2 Seconds
[2023-08-22 07:00] VITALS: BP 139/63; PULSE 68; RESP 18; TEMP 36.7; O2SAT 95
--- NOTE | 2023-08-22 08:27 | P.ORPN_ITS ---
Subjective Subjective Time Seen by Provider: 07:30 Date Seen: 08/22/23 Principal diagnosis: Status post left total knee arthroplasty and deep hardware removal Interval history: Carline is comfortable this morning. She is accompanied by her . She plans to discharge today. Ortho Exam Narrative Exam Narrative: Alert and oriented x3. Patient is in no acute distress. Converses without labored breathing. Hearing is grossly intact. Ambulates with a walker. Examination left knee shows the dressing is intact. Subcutaneous blood c ollection is mild. CMS intact left lower extremity. Easily able to straight leg raise. No pretibial edema. Bilateral calves are soft and nontender. Const Vital Signs, click to edit/add: Vital Signs - 24 hr 08/21/23 11:10 08/21/23 11:49 08/21/23 16:20 Temperature 98.7 F 97.4 F L Pulse Rate 60 54 L 69 Pulse Rate [Pulse Oximeter] Respiratory Rate 16 16 18 Blood Pressure 151/68 H 135/53 L 131/71 Blood Pressure [Left Arm] Pulse Oximetry 98 100 96 Oxygen Delivery Method Room Air Nasal Cannula Room Air Oxygen Flow Rate 2 08/21/23 16:25 08/21/23 16:30 08/21/23 16:35 Temperature 97.6 F Pulse Rate 73 76 75 Pulse Rate [Pulse Oximeter] Respiratory Rate 18 16 18 Blood Pressure 138/75 138/78 137/77 Blood Pressure [Left Arm] Pulse Oximetry 96 96 99 Oxygen Delivery Method Room Air Room Air Room Air Oxygen Flow Rate 08/21/23 16:40 08/21/23 16:45 08/21/23 16:50 Temperature 96.6 F L Pulse Rate 74 74 74 Pulse Rate [Pulse Oximeter] Respiratory Rate 16 16 16 Blood Pressure 150/83 H 155/85 H 153/91 H Blood Pressure [Left Arm] Pulse Oximetry 98 98 98 Oxygen Delivery Method Room Air Room Air Room Air Oxygen Flow Rate 08/21/23 17:18 08/21/23 17:20 08/21/23 17:30 Temperature 96.5 F L 96.5 F L 96.5 F L Pulse Rate 54 L 65 55 L Pulse Rate [Pulse Oximeter] Respiratory Rate 14 14 14 Blood Pressure 147/67 H 158/91 H 148/68 H Blood Pressure [Left Arm] Pulse Oximetry 98 97 98 Oxygen Delivery Method Room Air Room Air Oxygen Flow Rate 08/21/23 17:45 08/21/23 18:00 08/21/23 18:30 Temperature 96.5 F L 96.5 F L 96.7 F L Pulse Rate 55 L 60 75 Pulse Rate [Pulse Oximeter] Respiratory Rate 14 16 16 Blood Pressure 153/73 H 150/64 H 135/66 Blood Pressure [Left Arm] Pulse Oximetry 98 98 100 Oxygen Delivery Method Room Air Oxygen Flow Rate 08/21/23 19:00 08/21/23 19:30 08/21/23 20:00 Temperature 97.0 F L 97.0 F L 97.1 F L Pulse Rate 52 L 52 L 72 Pulse Rate [Pulse Oximeter] Respiratory Rate 16 16 18 Blood Pressure 141/72 H 147/62 H 119/82 Blood Pressure [Left Arm] Pulse Oximetry 98 97 98 Oxygen Delivery Method Room Air Room Air Room Air Oxygen Flow Rate 2 2 08/21/23 21:00 08/21/23 22:00 08/21/23 23:00 Temperature 97.1 F L 97.1 F L Pulse Rate 72 64 Pulse Rate [Pulse Oximeter] Respiratory Rate 16 16 16 Blood Pressure 135/68 147/63 H Blood Pressure [Left Arm] Pulse Oximetry 97 98 98 Oxygen Delivery Method Room Air Room Air Room Air Oxygen Flow Rate 08/21/23 23:00 08/22/23 03:00 Temperature 97.2 F L 97.1 F L Pulse Rate 68 Pulse Rate [Pulse Oximeter] 100 Respiratory Rate 16 16 Blood Pressure 140/56 H Blood Pressure [Left Arm] 138/69 Pulse Oximetry 99 98 Oxygen Delivery Method Room Air Room Air Oxygen Flow Rate 2 Assessment and Plan Assessment and plan (1) Status post left knee replacement: Status: Acute Assessment and Plan: Plan for discharge is today to home if they meet discharge criteria. DVT prophylaxis includes aspirin 81 mg twice daily x1 month, Compression stockings as needed for swelling. Frequent ambulation, every hour throughout the day. Remove dressing in 1 week. Observe wound and phone Orthopedics with any questions or concerns Return to clinic in 1 week for a wound check Return to clinic in 6 weeks with surgeon Minimize narcotic use. Wean off and discontinue soon as possible. Activities as tolerated. No strenuous activity. Outpatient physical therapy as scheduled. Ice and elevate the operative extremity. No restriction on ice.
[2023-08-22] MEDS: SENNOSIDES 1 TAB TABLET 2 TAB PO (08:56)
[2023-08-22] MEDS: POTASSIUM CHLORIDE 10 MEQ CAPSULE ER 20 MEQ PO (08:56)
[2023-08-22] MEDS: CHLORTHALIDONE 25 MG TABLET PO (08:56)
[2023-08-22] MEDS: LOSARTAN POTASSIUM 50 MG TABLET 100 MG PO (08:56)
[2023-08-22] MEDS: ASPIRIN 81 MG TABLET EC PO (08:57)
--- NOTE | 2023-08-22 11:53 | PC.NURSE ---
shift note: pt up 1/walker with steady gait. IV dc'd intact Rt wrist. Reviewed dc instructions and copies sent with pt at dc. Belongings reviewed and sent with pt at dc. pt dc'd with 2 ice paks and bushra socks
== END 2023-08-22 12:02 | disposition home or self-care (01) ==
LOC: OR 10:13 → MEDSURG 10:20
PROVIDERS: Visit Provider Orthopaedic Surgery
PROC: (CPT 27447; principal; 2023-08-21 12:15)
DX: M17.32 Unilateral post-traumatic osteoarthritis, left knee (principal); G89.18 Other acute postprocedural pain; M25.362 Other instability, left knee; Z47.2 Encounter for removal of internal fixation device; E11.9 Type 2 diabetes mellitus without complications; I11.9 Hypertensive heart disease without heart failure; K21.9 Gastro-esophageal reflux disease without esophagitis; G90.01 Carotid sinus syncope; Z95.1 Presence of aortocoronary bypass graft; Z79.82 Long term (current) use of aspirin; E66.9 Obesity, unspecified; Z68.33 Body mass index [BMI] 33.0-33.9, adult; I45.10 Unspecified right bundle-branch block; I25.10 Atherosclerotic heart disease of native coronary artery without angina pectoris; E78.5 Hyperlipidemia, unspecified; Z95.5 Presence of coronary angioplasty implant and graft
CPT/HCPCS: 27447; 01402; 36415; 64447; 64454; 73560; 76942; 82565; 82962; 84132; 84295; 84520; 85025; 85610; 97110; 97116; 97161; 97165; 97535; 99100; A9270; C1776; J0690; J1100; J2250; J2704; J2795; J3010; J3490; J7120

== ENCOUNTER 2024-03-04 10:15 | Day surgery (SDC) | payer MEDICARE, OTHER, SELFPAY ==
[2024-03-04] VITALS (11 sets, daily range): BP systolic 88–132; BP diastolic 39–63; PULSE 55–80; RESP 14–16; TEMP 36.2–36.8; O2SAT 95–100; BMI 31.8
--- OUTSIDE RECORDS SUMMARY | 2024-03-04 10:19 | XMS_ITS ---
Author Organization [facility] Address [address] [place] [address] Care Team Providers Care [employer] Manager Name Role Phone Unavailable Unavailable Unavailable Surgery Details Not on file Complications Check Surgery Details section. Procedure Estimated Blood Loss Check Surgery Details section. Procedure Findings Check Surgery Details section. Procedure Specimens Taken Check Surgery Details section.
--- OUTSIDE RECORDS SUMMARY | 2024-03-04 10:19 | XMS_ITS | Clinical Summary ---
Author Organization [facility] Address [address] [place] [id number] Care Team Providers Care Folder Machine Name Role Phone Damon Nagel M.D. Primary Care Provider Source Comments Patient records contain information from all sites at [facility]. For routine questions regarding patient records, call [phone] during business hours, M-F 8:00 AM - 5:00 PM Central Time. Record requests for emergency care only can be directed to [phone] at any time.[facility] Allergies Active Allergy Reactions Criticality Noted Date Comments Alendronate GI intolerance Low 08/27/2015 Atenolol Other (see comments) Low 08/11/2009 Celecoxib GI intolerance,Headache Low 04/15/2003 Montelukast Shortness of breath (Reselect Reaction),Headache Low 08/21/2009 Oxycodone Other (see comments) High 01/29/2023 Ezetimibe Other (see comments),Cough Low 01/31/2022 Patient has tried Zetia twice both times resulting in dry cough and chest pressure Medications * This document contains information received from the source organization and may not represent a complete record from that organization. loratadine 10 mg capsule Take 10 mg by mouth daily. 6 Active ASCORBIC ACID-ASCORBATE CALC ORAL Take 1 tablet by mouth daily. 500 mg [address] tablet Take 1 tablet by mouth daily. 3 Active CALCIUM CARB/VIT D3/MINERALS (CALCIUM-VITAMI N D ORAL) Take 600 capsules by mouth 2 (two) times a day. 6 Active blood-glucose meter kit Check blood sugar everyday 1 each 0 Active Accu-Chek Fastclix Lancet Drum USE TO CHECK BLOOD SUGAR ONCE DAILY 100 each 3 3 Active blood sugar diagnostic strips (Accu-Chek Guide test strips) USE TO TEST ONCE EVERY DAY 100 strip 3 3 Active amoxicillin (AmoxiL) 500 mg capsule 4 Active acetaminophen (TylenoL) 500 mg capsule Take 500 mg by mouth every 6 (six) hours. 4 Active multivit-min/ir on/FA/vit K/lut (CENTRUM SILVER WOMEN ORAL) Take 1 tablet by mouth. 3 Active chlorthalidone (Hygroton) 25 mg tabletIndicatio ns:Hypertensive Heart Disease Without Heart Failure Take 1 tablet (25 mg total) by mouth daily. 90 tablet 4 4 Active losartan (Cozaar) 100 mg tabletIndicatio ns:Hypertensive Heart Disease Without Heart Failure Take 1 tablet (100 mg total) by mouth daily. 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 25 tablet 1 4 Active potassium chloride (Klor-Con M) 20 mEq ER tablet Take 1 tablet (20 mEq total) by mouth daily. 90 tablet 4 4 Active rosuvastatin (Crestor) 40 mg tabletIndicatio ns:Hyperlipidem ia Mixed Take 1 tablet (40 mg total) by mouth daily. 90 tablet 4 4 Active MULTIVITAMIN WITH MINERALS ORAL daily. 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 25 tablet 1 3 02/24/20 24 Discontinue d(Reorder) losartan (COZAAR) 100 mg tabletIndicatio ns:Hypertensive Heart Disease Without Heart Failure Take 1 tablet (100 mg total) by mouth daily. 90 tablet 4 3 02/24/20 24 Discontinue d(Reorder) potassium chloride (KLOR-CON M/KDUR) 20 mEq ER tablet Take 1 tablet (20 mEq total) by mouth daily. 90 tablet 4 3 02/24/20 24 Discontinue d(Reorder) chlorthalidone (HYGROTON) 25 mg tablet Take 1 tablet (25 mg total) by mouth daily. 90 tablet 4 3 02/24/20 24 Discontinue d(Reorder) rosuvastatin (CRESTOR) 40 mg tabletIndicatio ns:Hyperlipidem ia Mixed Take 1 tablet (40 mg total) by mouth daily. 90 tablet 4 3 02/24/20 24 Discontinue d(Reorder) amoxicillin (AmoxiL) 500 mg capsule Take 4 capsules (2,000 mg total) by mouth once for 1 dose. Take 1 hour prior to dental visit. 4 capsule 4 02/10/20 24 HYDROmorphone (Dilaudid) 2 mg tablet Take 2 mg by mouth. 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 Myocardial Infarction Old 08/26/2009 Overview (01/11/2022): Diagnosis Maintenance Updates NSTEMI Nodule Thyroid 11/29/2008 Osteopenia 04/15/2003 Resolved Problems Problem Noted Date Diagnosed Date Resolved Date Morbid Severe Obesity Due To Excess Calories 9 02/06/2023 Reflux Esophageal 01/22/2017 02/06/2023 Syncope And Near Syncope 07/12/2016 Overview (03/27/2017): hospitalized Upper endo PUD 06/2016 [place] Ulcer Peptic 07/11/2016 01/11/2022 Overview (03/27/2017): [place] hospitalization Hyperglycemia 11/13/2015 02/06/2023 Atherosclerotic Heart Diseas e Of [place] Coronary Artery Without Angina Pectoris 10/06/2012 01/04/2020 Hyperlipidemia 05/04/2004 12/22/2017 Hypertension 04/15/2003 01/11/2022 Encounters Date Type Department Care Team Description 03/02/2024 9:00 AM AIRCRAFT MAINTENANCE TECHNICIAN Office Visit Department of Family [facility], [facility], [place], [place] [address] [place] [address] Darell Melvin APRN, C.N.P. Infection Upper Respiratory (Primary Dx) Discharge Disposition: Home or Self Care 03/02/2024 Nurse Triage Department of Family Medicine, [facility], [place], [place] [address] [place] [address] Barbara Reyes R.N. Sinus Problem 02/25/2024 Clinical Communication Department of Family [facility], [facility], [place], [place] [address], [place] [address] Lynnette Aleman APRN, C.N.P. Pre-op Exam 02/25/2024 Clinical Communication Department of Family Medicine, [facility], [place], [place] [address] [place] [phone] Lynnette Aleman APRN, C.N.P. Pre-op Exam 02/24/2024 1:30 PM AIRCRAFT MAINTENANCE TECHNICIAN Comprehensive Visit Department of Family Medicine, [facility], in [place], [place] [address] [place] [phone] Lynnette Aleman APRN, C.N.P. Preoperative Exam (Primary Dx); Hypertensive Heart Disease Without Heart Failure; Atherosclerotic Heart Disease Of Solomon Coronary Artery Without Angina Pectoris; Hyperlipidemia Mixed 02/10/2024 Orders Only Department of Family Medicine, [facility], in [place], [place] [address] [place] [phone] Damon Nagel M.D. 02/09/2024 9:28 AM AIRCRAFT MAINTENANCE TECHNICIAN - 02/09/2024 11:59 PM AIRCRAFT MAINTENANCE TECHNICIAN Hospital Encounter Department of Laboratory Medicine in [address] [phone] Damon Nagel M.D. Diabetes Mellitus Type 2 (HCC) Discharge Disposition: Home or Self Care 02/09/2024 9:28 AM AIRCRAFT MAINTENANCE TECHNICIAN - 02/09/2024 11:59 PM AIRCRAFT MAINTENANCE TECHNICIAN Hospital Encounter Department of Laboratory Medicine in [address] [phone] Damon Nagel M.D. Diabetes Mellitus Type 2 (HCC) Discharge Disposition: Home or Self Care 02/09/2024 Orders Only Department of Family Medicine, [facility], in [place], [place] [address] [phone] Damon Nagel M.D. 02/09/2024 Clinical Communication Department of Family Medicine, [facility], in [place], [place] [address] [phone] Damon Nagel M.D. 01/12/2024 8:56 AM CDT - 01/12/2024 11:59 PM CDT Hospital Encounter Department of Radiology in [place], [place] [address], [place] [phone] Damon Nagel M.D. Routine Screening Breast Exam Discharge Disposition: Home or Self Care 12/10/2023 Clinical Communication Department of Family Medicine, [facility], in [place], [place] [address] [place] [phone] Damon Nagel M.D. from Last 3 Months Immunizations Name Administration Dates Next Due H1N1 All Forms 04/19/2009 HZV (ZOSTAVAX) 10/04/2011 HepA Adult 04/25/2006,12/24/2004 Influenza Split 01/19/2014, 3,01/29/2010,2003,01/29/2003,03/31/1998 Influenza TIV (IM) 01/05/2024 Influenza high dose QV(65 ye ars or older) (PF) 12/28/2020 Influenza, Injectable, Quadrivalent 02/01/2016 Influenza, Quadrivalent, Adj uvanted, Preservative Free 01/02/2023,01/01/2022,01/11/2020 Influenza, Seasonal, Injectable 01/21/2012,01/03 Influenza, Unspecified 01/12/2011,2009,12/02/2009,2008,12/03/2008 PCV13 11/01/2014 PPSV23 12/06/2016,07/30/2010 RZV (SHINGRIX) 01/31/2019,11/12/2018,07/30/2010 SARS-COV-2 (COVID-19) - MODE RNA (12 YEARS AND OLDER) Fall Seasonal 01/17/2023 SARS-COV-2 (COVID-19) - PFIZ ER (Discontinued)(12 years or older) 01/05/2021 SARS-COV-2 (COVID-19) - PFIZ ER BIVALENT TS(Discontinued)(12 YEARS OR OLDER) 01/11/2022 SARS-COV-2 (COVID-19) - PFIZ ER TS(Discontinued)(12 years or older) 07/24/2021 Td (Adult), adsorbed 04/25/2004 Td Preservative Free (TENIVA C, DECAVAC) 10/19/2019 Td, (Adult) Unspecified 01/09/1995 Tdap 07/30/2010 influenza trivalent high dos e (HD)(PF) 12/28/2018,12/24/2017,01/22/2017,2015,02/21/2015,01/05/2013 Family History Medical History Relation Name Comments Pancreatic cancer Brother 1 Pancreatic cancer Brother 2 Coronary artery disease Brother 3 Damien Ashlee Bypass surgery Diabetes Brother 3 Damien Ashlee Hyperlipidemia Brother 3 Damien [place]lee Hypertension Brother 3 Damien [place]lee Pancreatic cancer Brother 3 Damien [place] Diabetes Brother 4 [place] Hyperlipidemia Brother 4 [place] Pancreatic cancer Brother 4 [place] Colon cancer Father Chris Nevilleu Obesity Father Chris Nevilleu Dysrhythmia care Mother [place] Heart failure Mother [place] Hyperlipidemia Mother [place] Other cancer Mother Palak Rosado Cancerous s ore on her leg Relation Name Status Comments Brother 1 Brother 2 Brother 3 Damien Ashlee Alive Brother 4 [place] Alive Father Chris Rosado Mother Palak Rosado Social History Tobacco Use Types Packs/Day Years Used Date Smoking Tobacco: Never Smokeless Tobacco: Never Comments:Never Smoked. Alcohol Use Standard Drinks/Week Comments Yes 1 (1 standard drink = 0.6 oz pur e alcohol) occassional [facility] Utilities Answer Date Recorded In the past 12 months has e electric, gas, oil, or water [employer] threatened to shut off services in your [...] How often do you attend chur or mormon services? More than 4 times per year 07/14/2022 Do you belong to any clubs o r organizations such as gnosticism groups, unions, fraternal or athletic groups, or [...] Answer Date Recorded PHQ-2 Score 0 08/11/2023 [facility] of Occupat ional Health - Occupational Stress [...] your living situation today? I have a [facility] place to live 08/05/2023 Education Answer Date Recorded What is the highest level of school you have completed or the highest degree you have received? Associate degree: occupational, technical, or vocational program 12/28/2018 Comments No Sex and Gender Information Value Date Recorded Sex Assigned at Female 06/08/2021 1:02 PM AIRCRAFT MAINTENANCE TECHNICIAN Legal Sex Female 3:41 PM AIRCRAFT MAINTENANCE TECHNICIAN Gender Identity Female 07/21/2017 4:03 PM CDT Sexual Orientation Straight 07/21/2017 4: 03 PM CDT Last Filed Vital Signs Vital Sign Reading Time Taken Comments Blood Pressure 151/68 03/02/2024 9:21 AM AIRCRAFT MAINTENANCE TECHNICIAN Pulse 58 03/02/2024 9:15 AM AIRCRAFT MAINTENANCE TECHNICIAN Temperature 36.2 C (97.2 F) 03/02/2024 9:15 AM AIRCRAFT MAINTENANCE TECHNICIAN Respiratory Rate 14 08/07/2023 8:09 AM CDT Oxygen Saturation 99% 07/15/2022 2:56 PM CDT Inhaled Oxygen Concentration - - Weight 68 kg (149 lb 14.6 oz) 03/02/2024 9:15 AM AIRCRAFT MAINTENANCE TECHNICIAN Height 146.4 cm (4' 9.64) 02/24/2024 1:08 PM CS T Body Mass Index 31.73 02/24/2024 1:08 PM AIRCRAFT MAINTENANCE TECHNICIAN Plan of Treatment Health Maintenance Due Date Last Done Comments Dilated Eye Exam 1945 Hepatitis B Vaccines (1 of 3 - Risk 3-dose series) 2007 RSV vaccine - (32-36 weeks) or 60+ years (1 - 1-dose 75+ series) 2022 Office Visit for Blood Pressure Check / Re-check 05/31/2024 03/02/2024 Creatinine Level (Kidney Function Test) 08/05/2024 08/06/2023, 01/31/2023, 01/08/2022, Additional history exists Potassium Level 08/05/2024 08/06/2023, 05/2022, 01/08/2022, Additional history exists Sodium Level 08/05/2024 08/06/2023, 05/2022, 01/08/2022, Additional history exists Diabetic Office Visit with Foot Exam 08/06/2024 08/07/2023 Visit: Medicare Annual Wellness 08/07/2024 08/07/2023 Hemoglobin A1C 08/08/2024 02/09/2024, 10/2023, 01/31/2023, Additional history exists Urine Albumin 02/08/2025 02/09/2024, 05/2022, 01/08/2022, Additional history exists Visit: Chronic Disease, age 18+ 02/23/2025 02/24/2024, 08/07/2023 DTaP,Tdap,and Td Vaccines (3 - Td or [...] Surveillance Discontinued Hepatitis C Screening Completed 01/04/2021 Bone Density Scan (Osteoporosis Screen) Discontinued 01/16/2023 Fall Risk Screen (Annual) Completed 07/07/2023 Depression Screening (Annual PHQ-2) Completed 08/11/2023, 07/07/2023 Influenza Vaccine Completed 01/05/2024, , 01/01/2022, Additional history exists COVID-19 Vaccine Completed 01/09/2024, , 01/11/2022, Additional history exists Mammogram Discontinued 01/12/2024, 12/29, 01/08/2022, Additional history exists Cologuard Discontinued FIT Discontinued IPV Vaccines Aged Out No longer eligi ble based on patient's age to complete this topic Medical Devices Implanted Type Area Credit Underwriter Device Identifier Shelf Expiration Date Model / Serial / Lot Cardiac Stent Cardiac Stent Heart Xience Stent 3.5 X 15 - Forte [id number] Implanted:Qty: 1 on 08/27/2009 Cardiac Stent Pineda Description:Device Manufactu rer - [employer]. Device Status Text - [id number]. Conversions - Default Historical Implant Device Implanted:2014 (Quantity not on file) Hardware e.g. pins/screws/ rods Left: Leg Description:Body Location - Calf L. Device Status Text - Hardware. Conversions - Default Historical Implant Device Implanted:2014 (Quantity not on file) Stent Other Description:Device Status Te xt - StentOthr. x1. Procedures Procedure Name Priority Date/Time Associated Diagnosis Comments SARS COV-2,INFLUENZA A/B,RSV,PCR, V Routine 03/02/2024 9:46 AM AIRCRAFT MAINTENANCE TECHNICIAN Infection Upper Respiratory HEMOGLOBIN A1C, B Routine 02/09/2024 9:5 7 AM AIRCRAFT MAINTENANCE TECHNICIAN Diabetes Mellitus Type 2 (HCC) ALBUMIN, RANDOM, U Routine 02/09/2024 9: 55 AM AIRCRAFT MAINTENANCE TECHNICIAN Diabetes Mellitus Type 2 (HCC) BI BREAST SCREENING BILATERAL WITH TOMOSYNTHESIS RAD - Routine (most inpatients and all outpatients) 01/12/2024 9:14 AM CDT Routine Screening Breast Exam BASIC METABOLIC PANEL, S/P Routine 08/06/2023 8:58 AM CDT Atherosclerotic Heart Disease Of Solomon Coronary Artery Without Angina Pectoris Coronary Arterial Bypass Graft Status Post Personal History Preoperative Examination Cardiovascular Hypertension Essential Primary HCV AB SCRN W/REFLEX TO HCV PCR, S Routine 01/04/2021 9:57 AM CDT Maintenance Health Adult CT COLONOGRAPHY SCREENING WITHOUT IV CONTRAST RAD - Routine (most inpatients and all outpatients) 12/02/2019 8:19 AM CDT Screening Cancer Colon from Last 3 Months or Most Recently Relevant to Health Maintenance Results * SARS CoV-2, Influenza A/B, RSV, PCR Symptomatic (03/02/2024 9:46 AM AIRCRAFT MAINTENANCE TECHNICIAN) Influenza A, PCR Undetected Undetected 03/02/20 24 12:45 PM AIRCRAFT MAINTENANCE TECHNICIAN RDWG Comment:Influenza A viral RN A absent. Influenza B, PCR Undetected Undetected 03/02/20 24 12:45 PM AIRCRAFT MAINTENANCE TECHNICIAN RDWG Comment:Influenza B viral RN A absent. Respiratory Syncytial Virus, PCR Undetected Undetected 03/02/2024 12:45 PM AIRCRAFT MAINTENANCE TECHNICIAN RDWG Comment:RSV RNA absent. SARS-Coronavirus -2, PCR Undetected Undetected 03/02/2024 12:45 PM AIRCRAFT MAINTENANCE TECHNICIAN RDWG Comment: SARS-CoV-2 RNA absent. ----ADDITIONAL INFORMATION---- This RT-PCR test using the Xpert Xpress SARS-CoV-2/Flu/RSV assay ([employer] performed on the [employer] DX systems has received Emergency Use Authorization (EUA) by the U.S. Food and Drug Administration. Performance characteristics were verified by [facility] in a manner consistent with CLIA requirements. Fact sheets for this Emergency Use Authorization (EUA) assay can be found at the following links: For Healthcare Providers: https://www.fda.gov/media/664984/download For Patients: https://www.fda.gov/media/389903/download Specimen Source Swab, Nasopharynx 03/02/2024 11:49 AM AIRCRAFT MAINTENANCE TECHNICIAN RDWG Swab (Nasopharynx) 03/02/2024 9:46 AM AIRCRAFT MAINTENANCE TECHNICIAN 03/02/2024 11:49 AM AIRCRAFT MAINTENANCE TECHNICIAN Darell Melvin APRN, C.N.P. LAB MICROBIOLOGY - G ENERAL ORDERABLES Final Result Performing Organization Address [facility] Co de Phone Number [facility] [address] [place] [address], [facility] RDWG [facility] [place] [address] [place] [address] * (ABNORMAL) Hemoglobin A1c (02/09/2024 9:57 AM AIRCRAFT MAINTENANCE TECHNICIAN) Hemoglobin A1c, B 5.9(H) 4.2 - 5.6 % 02/09/2024 1:54 PM AIRCRAFT MAINTENANCE TECHNICIAN OWAT Comment: Hemoglobin A1c values of 5.7-6.4 percent indicate an increased risk for developing diabetes mellitus. In diabetic patients, HbA1c goals should be discussed with healthcare provider. Blood (Blood, Venous) 02/09/2024 9:57 AM AIRCRAFT MAINTENANCE TECHNICIAN 02/09/2024 1:19 PM AIRCRAFT MAINTENANCE TECHNICIAN Damon Nagel M.D. LAB BLOOD ADD-ON Final Result Performing Organization Address City/[facility]/ZIP Co de Phone Number [facility] [address] [place] [address], [place] OW[place] [facility] [place] [address] [place] [address] * Albumin, Random, Urine (02/09/2024 9:55 AM AIRCRAFT MAINTENANCE TECHNICIAN) Microalbumin <12.0 mg/L 02/09/2024 1:56 PM AIRCRAFT MAINTENANCE TECHNICIAN OW[facility] Comment:If clinically indica bushra, contact the lab for additional testing. Creatinine 89 mg/dL 02/09/2024 1:56 PM AIRCRAFT MAINTENANCE TECHNICIAN OWAT Albumin/Creatinine Ratio <13 <25 mg/g 02/09/2024 1:56 PM AIRCRAFT MAINTENANCE TECHNICIAN OWAT Comment: This ratio may not correspond with the reference range because one or both of the values used to calculate the ratio was above or below the quantification limits. Urine (Urine, Midstream) 02/09/2024 9:55 AM AIRCRAFT MAINTENANCE TECHNICIAN 02/09/2024 1:17 PM AIRCRAFT MAINTENANCE TECHNICIAN us Damon Nagel M.D. LAB URINE ORDERABLES F inal Result [facility] [address] [place] [address], [facility] OW[place] [facility] [place] [address] [place] [address] * BI Breast Screening Bilateral with Tomosynthesis (01/12/2024 9:14 AM CDT) Anatomical Region Laterality Modality Breast, Breast Imaging RST L OS, Breast Imaging ARZ LOS, Breast Imaging FLA LOS Bilateral Mammography Impressions 01/12/2024 9:25 AM CDT Negative. RECOMMENDATION: Annual Screening Mammogram ASSESSMENT: BI-RADS: 1: Negative. Narrative 01/12/2024 9:25 AM CDT EXAM: BI BREAST SCREENING BILATERAL WITH TOMOSYNTHESIS Current study was evaluated with a Computer Aided Detection (CAD) system. INDICATION: Screening mammogram. COMPARISON: Prior exam(s) were available and reviewed for comparison. DENSITY: b. There are scattered areas of fibroglandular density. FINDINGS: No mammographic findings of malignancy. Procedure Note Damon Bella M.D. - 01/12/2024 EXAM: BI BREAST SCREENING BILATERAL WITH TOMOSYNTHESIS Current study was evaluated with a Computer Aided Detection (CAD) system. INDICATION: Screening mammogram. COMPARISON: Prior exam(s) were available and reviewed for comparison. DENSITY: b. There are scattered areas of fibroglandular density. FINDINGS: No mammographic findings of malignancy. IMPRESSION: Negative. RECOMMENDATION: Annual Screening Mammogram ASSESSMENT: BI-RADS: 1: Negative. us Damon Nagel M.D. IMG BI PROCEDURES Sirisha l Result * (ABNORMAL) Basic Metabolic Panel (08/06/2023 8:58 [...] 8:58 AM CDT 08/06/2023 1:17 PM CDT us Prince Padilla APRN, C.N.P. LAB BLOOD ADD-ON Sirisha l Result [facility] [address] [place] [address], [place] [facility] [place] [address] [place] [address] * HCV Ab Scrn w/Reflex to HCV PCR, Serum (01/04/2021 9:57 AM CDT) HCV Ab Screen, S Negative Negative 01/05/2021 7:44 AM CDT [facility] Comment:Bqeaqi-[id number] rat io is <1.00. Blood (Blood, Venous) 01/04/2021 9:57 AM CDT 01/05/2021 6:49 AM CDT us Damon Nagel M.D. LAB MICROBIOLOGY - BLO OD ORDERABLES Final Result [facility] [address] [place] [address] [facility] Dept. of Laboratory Medicine and Pathology [address] [place] [address] * CT Colonography Screening without IV Contrast (12/02/2019 8:19 AM CDT) Anatomical Region Laterality Modality Abdomen, Pelvis, Abdominal R ST LOS, Abdominal ARZ LOS, Abdominal FLA LOS N/A Computed Tomograp hy, Computed Tomography 12/02/2019 8:44 AM CDT Impressions 12/02/2019 9:25 AM CDT No evidence of polyp or mass in the colon. Narrative 12/02/2019 9:25 AM CDT EXAM: CT COLONOGRAPHY SCREENING WITHOUT IV CONTRAST [...] the colon. Damon Nagel M.D. IMG CT PROCEDURES Sirisha l Result from Last 3 Months or Most Recently Relevant to Health Maintenance Insurance MEDICARE MEDICA Care Teams Folder Machine Relationship Specialty Start Date End Date Damon Nagel M.D. [address] [place] [phone] PCP - General Family Medicine 08/31/19
--- OUTSIDE RECORDS SUMMARY | 2024-03-04 10:19 | XMS_ITS | Referral Summary ---
Author Organization [facility] Address [address] [place] [address] Care Team Providers Care Bullet Casting Operator Name Role Phone Damon Nagel M.D. Primary Care Provider Source Comments Patient records contain information from all sites at [facility]. For routine questions regarding patient records, call [phone] during business hours, M-F 8:00 AM - 5:00 PM Central Time. Record requests for emergency care only can be directed to [phone] at any time.[facility] Encounters Date Type Department Care Team Description 03/02/2024 9:00 AM INSPECTOR [employer]ANCE [employer] Office Visit Department of Family Medicine, [facility], in [place], [place] [address] [facility] [place] [address] Darell Melvin APRN, C.N.P. Infection Upper Respiratory (Primary Dx) Discharge Disposition: Home or Self Care 03/02/2024 Nurse Triage Department of Family Medicine, [facility], in [place], [place] [address] [place] [phone] Barbara Reyes R.N. Sinus Problem 02/25/2024 Clinical Communication Department of Family [facility], [facility], in [place], [place] [address] [phone] Lynnette Aleman APRN, C.N.P. Pre-op Exam 02/25/2024 Clinical Communication Department of Family Medicine, [facility], in [address] [phone] Lynnette Aleman APRN, C.N.P. Pre-op Exam 02/24/2024 1:30 PM INSPECTOR [employer]ANCE [employer]GE Comprehensive Visit Department of [facility], [facility], in [address] [phone] Lynnette Aleman APRN, C.N.P. Preoperative Exam (Primary Dx); Hypertensive Heart Disease Without Heart Failure; Atherosclerotic Heart Disease Of [place] Coronary Artery Without Angina Pectoris; Hyperlipidemia Mixed 02/10/2024 Orders Only Department of Family Medicine, [facility], in [address] [phone] Damon Nagel M.D. 02/09/2024 Orders Only Department of Family Medicine, [facility], in [address] [place] [address] Damon Nagel M.D. 02/09/2024 Clinical Communication Department of [facility], [facility], in [address] [phone] Damon Nagel M.D. 02/09/2024 9:28 AM INSPECTOR [employer]ANCE BR[employer]GE - 02/09/2024 11:59 PM INSPECTOR [employer]ANCE [facility] Hospital Encounter Department of Laboratory Medicine in [address] [address] Damon Nagel M.D. Diabetes Mellitus Type 2 (HCC) Discharge Disposition: Home or Self Care 02/09/2024 9:28 AM INSPECTOR [employer]ANCE BR[employer]GE - 02/09/2024 11:59 PM INSPECTOR [employer]ANCE [employer] Hospital Encounter Department of Laboratory Medicine in [address] [address] Damon Nagel M.D. Diabetes Mellitus Type 2 (HCC) Discharge Disposition: Home or Self Care 01/12/2024 8:56 AM CDT - 01/12/2024 11:59 PM CDT Hospital Encounter Department of Radiology in [place], [place] [address] [address] Damon Nagel M.D. Routine Screening Breast Exam Discharge Disposition: Home or Self Care 12/10/2023 Clinical Communication Department of Family Medicine, [facility], in [place], [place] [address] [place] [address] Damon Nagel M.D. from Last 3 Months [...] SL tabletIndicatio ns:Atherosclero tic Heart Disease Of [place] Coronary Artery Without Angina Pectoris Place 1 [...] SL tabletIndicatio ns:Atherosclero tic Heart Disease Of [place] Coronary Artery Without Angina Pectoris Place 1 [...] to dental visit. 4 capsule 4 02/10/20 HYDROmorphone (Dilaudid) 2 mg tablet Take 2 mg by mouth. 4 02/24/20 Discontinue d(Therapy completed) Active Problems Problem Noted [...] Overview (03/27/2017): hospitalized Upper endo PUD 06/2016 [place] Ulcer Peptic 07/11/2016 01/11/2022 Overview (03/27/2017): [place] hospitalization Hyperglycemia 11/13/2015 02/06/2023 Atherosclerotic Heart Diseas e Of [place] Coronary Artery Without Angina Pectoris 10/06/2012 01/04/2020 [...] influenza trivalent high dos e (HD)(PF) 12/28/2018,12/24/2017,01/22/2017,2015,02/21/2015,01/05/2013 Social History Tobacco Use Types Packs/Day Years Used Date Smoking Tobacco: Never Smokeless Tobacco: Never Comments:Never Smoked. Alcohol Use Standard Drinks/Week Comments Yes 1 (1 standard drink = 0.6 oz pur e alcohol) occassional [facility] Utilities Answer Date Recorded In the past 12 months has th e electric, gas, oil, or water [employer] threatened to shut off services in your [...] any clubs o r organizations such as baptist groups, unions, fraternal or athletic groups, or [...] Answer Date Recorded PHQ-2 Score 0 08/11/2023 [facility] of Occupat ional [facility] - Occupational Stress Questionnaire Answer Date [...] Sex Assigned at Female 06/08/2021 1:02 PM INSPECTOR [employer] Legal Sex Female 3:41 PM [employer] Gender Identity Female 07/21/2017 4:03 PM CDT Sexual Orientation Straight 07/21/2017 4: 03 PM CDT Last Filed Vital Signs Vital Sign Reading Time Taken Comments Blood Pressure 151/68 03/02/2024 9:21 AM INSPECTOR [employer]GE Pulse 58 03/02/2024 9:15 AM INSPECTOR [employer] Temperature 36.2 C (97.2 F) 03/02/2024 9:15 AM INSPECTOR [employer]ANCE BR[employer]GE Respiratory Rate 14 08/07/2023 8:09 AM CDT Oxygen Saturation 99% 07/15/2022 2:56 PM CDT Inhaled Oxygen Concentration - - Weight 68 kg (149 lb 14.6 oz) 03/02/2024 9:15 AM INSPECTOR [employer] Height 146.4 cm (4' 9.64) 02/24/2024 1:08 PM CS T Body Mass Index 31.73 02/24/2024 1:08 PM INSPECTOR [employer] Plan of Treatment Not on file Medical Devices Implanted Type Area Associate Professor Of Chemistry Device Identifier Shelf Expiration Date Model / Serial / Lot Cardiac Stent Cardiac Stent Heart Xience Stent 3.5 X 15 - Forte [id number] Implanted:Qty: 1 on 08/27/2009 Cardiac Stent Pineda Description:Device Manufactu rer - [employer]. Device Status Text - [id number]. Conversions - Default Historical Implant Device Implanted:2014 (Quantity not on file) Hardware e.g. pins/screws/ rods Left: Leg Description:Body Location - Calf L. Device Status Text - Hardware. Conversions - Default Historical Implant Device Implanted:2014 (Quantity not on file) Stent Other Description:Device Status Te xt - StentOthr. x1. Procedures Procedure Name Priority Date/Time Associated Diagnosis Comments SARS COV-2,INFLUENZA A/B,RSV,PCR, V Routine 03/02/2024 9:46 AM INSPECTOR BALANCE BRIDGE Infection Upper Respiratory HEMOGLOBIN A1C, B Routine 02/09/2024 9:5 7 AM INSPECTOR [employer] BR[employer] Diabetes Mellitus Type 2 (HCC) ALBUMIN, RANDOM, U Routine 02/09/2024 9: 55 AM INSPECTOR BALANCE BRIDGE Diabetes Mellitus Type 2 (HCC) BI BREAST SCREENING BILATERAL WITH TOMOSYNTHESIS RAD - Routine (most inpatients and all outpatients) 01/12/2024 9:14 AM CDT Routine Screening Breast Exam BASIC METABOLIC PANEL, S/P Routine 08/06/2023 8:58 AM CDT Atherosclerotic Heart Disease Of [place] Coronary Artery Without Angina Pectoris Coronary Arterial [...] A/B, RSV, PCR Symptomatic (03/02/2024 9:46 AM INSPECTOR BALANCE BRIDGE) Influenza A, PCR Undetected Undetected 03/02/20 12:45 PM INSPECTOR BALANCE BRIDGE R[facility] Comment:Influenza A viral RN A absent. Influenza B, PCR Undetected Undetected 03/02/20 12:45 PM INSPECTOR [employer]ANCE BR[employer]GE [facility] Comment:Influenza B viral RN A absent. Respiratory Syncytial Virus, PCR Undetected Undetected 03/02/2024 12:45 PM INSPECTOR [employer]ANCE BR[employer]GE [facility] Comment:RSV RNA absent. SARS-Coronavirus -2, PCR Undetected Undetected 03/02/2024 12:45 PM INSPECTOR [employer]ANCE BRIDGE R[facility] Comment: SARS-CoV-2 RNA absent. ----ADDITIONAL INFORMATION---- This RT-PCR test using the Xpert Xpress SARS-CoV-2/Flu/RSV assay ([employer] performed on the GeneXArticleAlley DX systems has received Emergency Use Authorization (EUA) by the U.S. Food and Drug Administration. Performance characteristics were verified by [facility] in a manner consistent with CLIA requirements. Fact sheets for this Emergency Use Authorization (EUA) assay can be found at the following links: For Healthcare Providers: https://www.fda.gov/media/899299/download For Patients: https://www.fda.gov/media/837491/download Specimen Source Swab, Nasopharynx 03/02/2024 11:49 AM INSPECTOR [employer]ANCE BR[employer]GE [facility] Swab (Nasopharynx) 03/02/2024 9:46 AM INSPECTOR BALANCE BRIDGE 03/02/2024 11:49 AM INSPECTOR [employer]ANCE BR[employer]GE Darell Melvin APRN C.N.PNemo LAB MICROBIOLOGY - G ENERAL ORDERABLES Final Result Performing Organization Address [facility]/ZIP Co de Phone Number [facility] [address] [place], [place] [address] RDW[facility] in [address] [address] * (ABNORMAL) Hemoglobin A1c (02/09/2024 9:57 AM INSPECTOR BALANCE BRIDGE) Hemoglobin A1c, B 5.9(H) 4.2 - 5.6 % 02/09/2024 1:54 PM INSPECTOR [employer]ANCE [employer]GE OWAT Comment: Hemoglobin A1c values of 5.7-6.4 percent indicate an increased risk for developing diabetes mellitus. In diabetic patients, HbA1c goals should be discussed with healthcare provider. Blood (Blood, Venous) 02/09/2024 9:57 AM INSPECTOR BALANCE BRIDGE 02/09/2024 1:19 PM INSPECTOR [employer]ANCE BR[employer]GE Damon Nagel M.D. LAB BLOOD ADD-ON Final Result [facility] [address] [place] [address], [facility] OWAT [facility] in [place] [address] [place] [address] * Albumin, Random, Urine (02/09/2024 9:55 AM INSPECTOR BALANCE BRIDGE) Microalbumin <12.0 mg/L 02/09/2024 1:56 PM INSPECTOR [employer]ANCE [employer]GE OWAT Comment:If clinically indica bushra, contact the lab for additional testing. Creatinine 89 mg/dL 02/09/2024 1:56 PM INSPECTOR [employer]ANCE BR[employer]GE OWAT Albumin/Creatinine Ratio <13 <25 mg/g 02/09/2024 1:56 PM INSPECTOR [employer]ANCE BR[employer]GE OWAT Comment: This ratio may not correspond with the reference range because one or both of the values used to calculate the ratio was above or below the quantification limits. Urine (Urine, Midstream) 02/09/2024 9:55 AM INSPECTOR BALANCE BRIDGE 02/09/2024 1:17 PM INSPECTOR [employer]ANCE BR[employer]GE Damon Nagel M.D. LAB URINE ORDERABLES F inal Result [facility] [address] [place] [address], [facility] in [place] [address] [place] [address] * BI Breast Screening Bilateral with Tomosynthesis [...] 1: Negative. Damon Nagel M.D. IMG BI PROCEDURES Sirisha [...] C.N.P. LAB BLOOD ADD-ON Sirisha l Result [facility] [address] [place] [address], [place] OW[place] [facility] in [place] [address] [place] [address] * HCV Ab Scrn w/Reflex to HCV PCR, Serum (01/04/2021 9:57 AM CDT) HCV Ab Screen, S Negative Negative 01/05/2021 7:44 AM CDT [facility] Comment:[id number] rat io is <1.00. Blood (Blood, Venous) 01/04/2021 9:57 AM CDT 01/05/2021 6:49 AM CDT us Damon Nagel M.D. LAB MICROBIOLOGY - BLO OD ORDERABLES Final Result [facility] [address] [place] [address] [facility] Dept. of Laboratory Medicine and Pathology [address] [place] [address] * CT Colonography Screening without IV Contrast [...] mass in the colon. Damon Nagel M.D. Rik CT PROCEDURES Sirisha l Result from Last 3 Months or Most Recently Relevant to Health Maintenance Insurance [place] [id number] Care Teams Bullet Casting Operator Relationship Specialty Start Date End Date Damon Nagel M.D. [address] [place] [phone] PCP - General Family Medicine 08/31/19
--- OUTSIDE RECORDS SUMMARY | 2024-03-04 10:20 | XMS_ITS | Encounter Summary ---
Author Organization [facility] Address [address] [place] [address] Care Team Providers Care Wooden Boat Builder Name Role Phone Damon Nagel M.D. Primary Care Provider Reason for Visit * Reason Comments Annual Exam Medication Visit Needs all medication s renewed * Appointment Request (Routine) - Closed Specialty Diagnoses / Procedures Referred By Marco pompa Referred To Contact Family Medicine Referral ID Status Reason Start Date Expiration Date Visits Re quested Visits Authorized [id number] Closed 12/10/2023 12/09/2024 1 1 Encounter Details Date Type Department Care Team (Latest Contact Info) Description 02/24/2024 1:30 PM SCREEN PRINTING MACHINE OPERATOR Comprehensive Visit Department of Family Medicine, [facility], in [place], [place] [address] [phone] Lynnette Aleman, FORESTRY CONSULTANT, C.N.P. [address] [place] [phone] Preoperative Exam (Primary Dx); Hypertensive Heart Disease Without Heart Failure; Atherosclerotic Heart Disease Of [place] Coronary Artery Without Angina Pectoris; Hyperlipidemia Mixed Social History Tobacco Use Types Packs/Day Years Used Date Smoking Tobacco: Never Smokeless Tobacco: Never Alcohol Use Standard Drinks/Week Comments Yes 1 (1 standard drink = 0.6 oz pur e alcohol) occassional [facility] Utilities Answer Date Recorded In the past 12 months has e electric, gas, oil, or water company [...] week 07/14/2022 How often do you attend [facility] or anabaptist services? More than 4 times per year 07/14/2022 Do you belong to any clubs o r organizations such as zoroastrianism groups, unions, fraternal or athletic groups, or [...] Answer Date Recorded PHQ-2 Score 0 08/11/2023 [facility] Occupat ional Health - [...] your living situation today? I have a [facility] place to live 08/05/2023 Education Answer Date Recorded What is the highest level of school you have completed or the highest degree you have received? Associate degree: occupational, technical, or vocational program 12/28/2018 Comments No Sex and Gender Information Value Date Recorded Sex Assigned at Female 06/08/2021 1:02 PM SCREEN PRINTING MACHINE OPERATOR Legal Sex Female 3:41 PM SCREEN PRINTING MACHINE OPERATOR Gender Identity Female 07/21/2017 4:03 PM CDT Sexual Orientation Straight 07/21/2017 4: 03 PM CDT documented as of this encounter Last Filed Vital Signs Vital Sign Reading Time Taken Comments Blood Pressure 138/72 02/24/2024 1:08 PM SCREEN PRINTING MACHINE OPERATOR Ave rage Pulse 67 02/24/2024 1:08 PM SCREEN PRINTING MACHINE OPERATOR Temperature 36.4 C (97.6 F) 02/24/2024 1:08 PM SCREEN PRINTING MACHINE OPERATOR Respiratory Rate - - Oxygen Saturation - - Inhaled Oxygen Concentration - - Weight 68.4 kg (150 lb 12.7 oz) 02/24/2024 1:08 PM SCREEN PRINTING MACHINE OPERATOR Height 146.4 cm (4' 9.64) 02/24/2024 1:08 PM CS T Body Mass Index 31.91 02/24/2024 1:08 PM SCREEN PRINTING MACHINE OPERATOR documented in this encounter H&P Notes * Lynnette Aleman, DEISI, C.N.P. - 02/24/2024 1:30 PM CST SUBJECTIVE CHIEF COMPLAINT/REASON FOR CONSULT Chief Complaint Patient presents with Annual Exam Medication Visit Needs all medications renewed HISTORY OF PRESENT ILLNESS Carline Gibbons is a 78 y.o. female who presents today for a pre-operative consultation at [facility] of Dr. Delcid who plans on performing Laparoscopic left knee scar tissue removal on the following date: 03/04/24 at [facility] [place] [facility]. Based on information from the patient, the surgery has minimal risk. Procedure is Intermediate Risk (cardiac risk <5%): CEA, head/neck surgery, intraabdominal or intrathoracic surgery, orthopedic surgery, prostate surgery. RISK STRATIFICATION Functional Status: Functional Class II: Able to perform 5-7 METS (walk > 4 blocks or climb over 2 flights without cardiac or pulmonary Sx). REVISED [VINSON] CARDIAC RISK INDEX (RCRI): History of Ischemic Heart Disease: yes, STEMI 2009 (History of myocardial infarction, history of positive exercise test, current complaint of chest pain consistent with myocardial ischemia, use of nitrate therapy, or ECG with pathological Q waves). (Do not count prior coronary revascularization procedure unless one of the other criteria for ischemic heart disease is present). History of Heart Failure: no. (History of congestive heart failure, pulmonary edema, paroxysmal nocturnal dyspnea, bilateral rales, S3 gallop, or chest x-ray with pulmonary vascular redistribution). History of Cerebrovascular Disease (stroke or transient ischemic attack): no. Diabetes Requiring Perioperative Insulin Use: no. Chronic Kidney Disease (stage 3 or creatinine >2.0): no. High-risk Surgery Type: no. (e.g., suprainguinal vascular surgery, intraperitoneal surgery, or intrathoracic surgery). RCRI Score = 1. RCRI ESTIMATED RISK OF RAHUL-OPERATIVE CARDIAC , NON-FATAL DC, OR NON-FATAL CARDIAC ARREST: 1 Predictors (0.9% risk of major cardiac event). HOLMES ABCDEFGHINO CHECKLIST: A (Allergies): yes. B (Bleeding Tendency, personal or family): no. Recent Aspirin, Plavix or Warfarin Use: yes. Will hold for surgery C (Cardiac History, Recent Corticosteroids, Cervical Spine Problems): no. D (Diabetes): no. E (Embolic/Stroke or Clotting History): no. F (Family History of Anesthesia Complications, personal or family): no. G (Glaucoma, GERD): no. H (Hepatitis or HIV Risk): no. I (Intubation Difficulties) Mallampati Score (seated, neck in neutral position, tongue fully protruded without phonation): II (hard and soft palate, upper portion of tonsils anduvula visible). N (Pre-existing Neurologic Deficits): no. O (Obstructive Sleep Apnea): no. CARDIOVASCULAR HISTORY: Cardiovascular History: myocardial infarction - 2009, CABG - 2012, and percutaneous coronary intervention - 2009 . Stent in the Past 12 Months: no. History of Bacterial Endocarditis: no. History of Heart Valve Replacement: no. PULMONARY HISTORY: Pulmonary History: none. Oxygen Use: no. OTHER HISTORY: Other Medical History: none. History of Joint Replacement: yes. Needs Antibiotics Prior to Surgery or Dental Procedures: no. Recent Illnesses: no. Recent Antibiotic Use: no. History of MRSA Skin Infections: no. Smoker: no. Alcohol Use: occasional . Illicit Drug Use: no. : no. Glasses/Contacts: yes. Hearing Aids: no. Dentures/Dental Issues: no. REVIEW OF SYSTEMS A focused Review of Systems was performed with pertinent information listed in the History of Present Illness, all other negative. 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 SURGICAL HISTORY Past Surgical History: Procedure Laterality [...] Age of Onset Heart failure Mother Palak Rosado Dysrhythmia care Mother Palak Rosado Other cancer Mother Palak Rosado Cancerous sore on her leg Hyperlipidemia Mother [place] Colon cancer Father Chris Rosado Obesity Father Chris Rosado Pancreatic cancer Brother 75 Pancreatic cancer Brother 62 Pancreatic cancer Brother Damien Rosado Coronary artery disease Brother Damien [place] Bypass surgery Hypertension Brother Damien [place] Hyperlipidemia Brother Damien [place] Diabetes Brother Damien [place] Pancreatic cancer Brother [place] Hyperlipidemia Brother [place] Diabetes Brother [place] SOCIAL HISTORY Social History Tobacco Use Smoking status: Never Smokeless tobacco: Never Vaping Use Vaping status: never used Substance Use Topics Alcohol use: Yes Alcohol/week: 1.0 standard drink of alcohol Types: 1 Glasses of wine per week Comment: occassional Drug use: No CURRENT MEDICATIONS Current Outpatient Medications Medication Sig Accu-Chek Fastclix Lancet Drum USE TO CHECK BLOOD SUGAR ONCE DAILY acetaminophen (TylenoL) 500 mg capsule Take 500 mg by mouth every 6 (six) hours. amoxicillin (AmoxiL) 500 mg capsule ASCORBIC ACID-ASCORBATE CALC ORAL Take 1 tablet by mouth daily. [address] tablet Take 1 tablet by mouth daily. blood sugar diagnostic strips (Accu-Chek Guide test strips) USE TO TEST ONCE EVERY DAY blood-glucose meter kit Check blood sugar everyday CALCIUM CARB/VIT D3/MINERALS (CALCIUM-VITAMIN D ORAL) Take 600 capsules by mouth 2 (two) times a day. chlorthalidone (Hygroton) 25 mg tablet Take 1 tablet (25 mg total) by mouth daily. loratadine 10 mg capsule Take 10 mg by mouth daily. losartan (Cozaar) 100 mg tablet Take 1 tablet (100 mg total) by mouth daily. multivit-min/iron/FA/vit K/lut (CENTRUM SILVER WOMEN ORAL) Take 1 tablet by mouth. nitroglycerin (Nitrostat) 0.[address] 1 tablet (0.4 mg total) under the tongue every 5 (five) minutes as needed for chest pain. potassium chloride (Klor-Con M) 20 mEq ER tablet Take 1 tablet (20 mEq total) by mouth daily. rosuvastatin (Crestor) 40 mg tablet Take 1 tablet (40 mg total) by mouth daily. ALLERGIES/CONTRAINDICATIONS Allergies Allergen Reactions Oxycodone Other (see comments) Alendronate GI intolerance Atenolol Other (see comments) Celecoxib GI intolerance and Headache Montelukast Shortness of breath (Reselect Reaction) and Headache Zetia [Ezetimibe] Other (see comments) and Cough Patient has tried Zetia twice both times resulting in dry cough and chest pressure OBJECTIVE VITAL SIGNS BP 138/72 (BP Location: Right arm, Patient Position: Sitting, Cuff Size: Regular) Comment: Average Comment (Cuff Size): Long Pulse 67 Temp 36.4 ??C (Temporal) Ht 146.4 cm Wt 68.4 kg BMI 31.91 kg/m?? PHYSICAL EXAMINATION Vitals reviewed. Constitutional General: She is not in acute distress. Appearance: Normal appearance. She is not ill-appearing. HENT Head: Normocephalic. Right Ear: Tympanic membrane, ear canal and external ear normal. Left Ear: Tympanic membrane, ear canal and external ear normal. Nose: Nose normal. Mouth/Throat: Mouth: Mucous membranes are moist. Pharynx: Oropharynx is clear. Eyes Conjunctiva/sclera: Conjunctivae normal. Pupils: Pupils are equal, round, and reactive to light. Neck Thyroid: No thyromegaly or thyroid tenderness. Vascular: No carotid bruit. Trachea: Trachea normal. Cardiovascular Rate and Rhythm: Normal rate and regular rhythm. Heart sounds: Normal heart sounds, S1 normal and S2 normal. No murmur heard. No friction rub. No gallop. No S3 or S4 sounds. Pulmonary Effort: Pulmonary effort is normal. No respiratory distress. Breath sounds: Normal breath sounds. No wheezing, rhonchi or rales. Abdominal General: Abdomen is flat. Bowel sounds are normal. There is no distension. Palpations: Abdomen is soft. There is no hepatomegaly, splenomegaly or mass. Tenderness: There is no abdominal tenderness. Genitourinary General: Normal vulva. Musculoskeletal General: Normal range of motion. Cervical back: Normal range of motion and neck supple. No muscular tenderness. Right lower leg: No edema. Left lower leg: No edema. Lymphadenopathy Cervical: No cervical adenopathy. Right cervical: No superficial, deep or posterior cervical adenopathy. Left cervical: No superficial, deep or posterior cervical adenopathy. Skin General: Skin is warm and dry. Neurological General: No focal deficit present. Mental Status: She is alert and oriented to person, place, and time. Cranial Nerves: Cranial nerves 2-12 are intact. Psychiatric Mood and Affect: Mood normal. Behavior: Behavior normal. Thought Content: Thought content normal. Judgment: Judgment normal. DIAGNOSTICS none indicated at this time. ASSESSMENT / PLAN 1. Preoperative Exam (Primary) PLAN: Patient medically acceptable for planned procedure - See NELSON in HPI above. The patient is deemed to have a medically satisfactory risk profile for the planned surgical procedure, and of low risk of a arhul-operative cardiac event. Patient is capable of >4 METS activity without unusual dyspnea orchest pain, no additional cardiac testing is needed.. We reviewed medications to avoid taking priorto the procedure including avoiding aspirin, NSAIDs, and herbal medications for at least 1 week prior to surgery. The patient knows to be fasting after midnight the day of surgery. Further pre-operative and post-operative recommendations will be given prior to surgery by surgeon. Patient will followup as needed. 2. Hypertensive Heart Disease Without Heart Failure Well controlled on losartan and chlorthalidone, provided with refills today. - chlorthalidone (Hygroton) 25 mg tablet; Take 1 tablet (25 mg total) by mouth daily. Dispense: 90 tablet; Refill: 4 - losartan (Cozaar) 100 mg tablet; Take 1 tablet (100 mg total) by mouth daily. Dispense: 90 tablet; Refill: 4 3. Atherosclerotic Heart Disease Of [place] Coronary Artery Without Angina Pectoris History of DC with intervention 2009 and 2012. Has not needed to use the Nitro outpatient since intervention. She will continue to follow with Cardiology - nitroglycerin (Nitrostat) 0.4 mg SL tablet; Place 1 tablet (0.4 mg total) under the tongue every 5 (five) minutes as needed for chest pain. Dispense: 25 tablet; Refill: 1 4. Hyperlipidemia Mixed Continue with Crestor provided with refills. - rosuvastatin (Crestor) 40 mg tablet; Take 1 tablet (40 mg total) by mouth daily. Dispense: 90 tablet; Refill: 4 PATIENT EDUCATION: Ready to learn, no apparent learning barriers were identified; learning preferences include listening. Explained diagnosis and treatment plan; patient expressed understanding of the content, discussed at length. All questions answered. Lynnette Aleman APRN, C.N.P. 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 [address] [place] [phone] PCP - General Family Medicine 08/31/19 documented as of this encounter
--- OUTSIDE RECORDS SUMMARY | 2024-03-04 10:20 | XMS_ITS | Encounter Summary ---
Author Organization [facility] Address [address] [place] [address] Care Team Providers Care Director Child Abuse Therapy Name Role Phone Damon Nagel M.D. Primary Care Provider Reason for Visit * Reason Onset Date Comments Pre-op Exam 02/25/2024 Encounter Details Date Type Department Care Team (Late st Contact Info) Description 02/25/2024 Clinical Communication Department of Family Medicine, [facility], in [place], [place] [address] [phone] Lynnette Aleman, AUTOMOTIVE CONSULTANT, C.N.P. [address] [phone] Pre-op Exam Social History Tobacco Use Types Packs/Day Years Used Date Smoking Tobacco: Never Smokeless Tobacco: Never Alcohol Use Standard Drinks/Week Comments Yes 1 (1 standard drink = 0.6 oz pur e alcohol) occassional [facility] Utilities Answer Date Recorded In the past [...] any clubs o r organizations such as tenriism groups, unions, fraternal or athletic groups, or [...] Answer Date Recorded PHQ-2 Score 0 08/11/2023 [facility] of Occupat ional Health - Occupational Stress [...] your living situation today? I have a [facility] place to live 08/05/2023 Education Answer Date Recorded What is the highest level of school you have completed or the highest degree you have received? Associate degree: occupational, technical, or vocational program 12/28/2018 Comments No Sex and Gender Information Value Date Recorded Sex Assigned at Female 06/08/2021 1:02 PM AEROSPACE MANAGER Legal Sex Female 3:41 PM AEROSPACE MANAGER Gender Identity Female 07/21/2017 4:03 PM CDT Sexual Orientation Straight 07/21/2017 4: 03 PM CDT documented as of this encounter Plan of Treatment Not on file documented as of this encounter Visit Diagnoses Not on filedocumented in this encounter Additional Health Concerns Infection Onset Date Last Indicated Resolved Time COVID19 Pending 03/02/2024 03/02/2024 03/02/2024 1 2:45 PM AEROSPACE MANAGER Assessment Noted Time PHQ-9 Depression Total Score: 0 08/11/19 24 8:34 AM CDT documented as of this encounter Care Teams Director Child Abuse Therapy Relationship Specialty Start Date End Date Damon Nagel M.D. [address] [place] [phone] PCP - General Family Medicine 08/31/19 documented as of this encounter
--- OUTSIDE RECORDS SUMMARY | 2024-03-04 10:20 | XMS_ITS | Encounter Summary ---
Author Organization [facility] Address [address] [place] [address] Care Team Providers Care Brinell Tester Name Role Phone Damon Nagel M.D. Primary Care Provider Reason for Visit * Reason Comments Symptom Assessment Sinus congestion, he adache and an occasion cough. * Appointment Request (Routine) - Closed Specialty Diagnoses / Procedures Referred By Marco pompa Referred To Contact Family Medicine Referral ID Status Reason Start Date Expiration Date Visits Re quested Visits Authorized [id number] Closed 03/02/2024 03/02/2025 1 1 Encounter Details Date Type Department Care Team (Late st Contact Info) Description 03/02/2024 9:00 AM WINDOW SHADE CUTTER Office Visit Department of Family Medicine, [facility], in [place], [place] [address] [place] [address] Post, Darell Soliman APRN, C.N.P. [address] [place] [phone] Infection Upper Respiratory (Primary Dx) Discharge Disposition: Home or Self Care Social History Tobacco Use Types Packs/Day Years Used Date Smoking Tobacco: Never Smokeless Tobacco: Never Comments:Never Smoked. Alcohol Use Standard Drinks/Week Comments Yes 1 (1 standard drink = 0.6 oz pur e alcohol) occassional [facility] Utilities Answer Date Recorded In the past 12 months has [employer], gas, oil, or water company threatened [...] week 07/14/2022 How often do you attend [facility] or jainism services? More than 4 times per year 07/14/2022 Do you belong to any clubs o r organizations such as pentecostalism groups, unions, fraternal or athletic groups, or [...] Answer Date Recorded PHQ-2 Score 0 08/11/2023 [facility] of Occupat ional Health - Occupational [...] your living situation today? I have a [facility] place to live 08/05/2023 Education Answer Date Recorded What is the highest level of school you have completed or the highest degree you have received? Associate degree: occupational, technical, or vocational program 12/28/2018 Comments No Sex and Gender Information Value Date Recorded Sex Assigned at Female 06/08/2021 1:02 PM WINDOW SHADE CUTTER Legal Sex Female 3:41 PM WINDOW SHADE CUTTER Gender Identity Female 07/21/2017 4:03 PM CDT Sexual Orientation Straight 07/21/2017 4: 03 PM CDT documented as of this encounter Last Filed Vital Signs Vital Sign Reading Time Taken Comments Blood Pressure 151/68 03/02/2024 9:21 AM WINDOW SHADE CUTTER Pulse 58 03/02/2024 9:15 AM WINDOW SHADE CUTTER Temperature 36.2 C (97.2 F) 03/02/2024 9:15 AM WINDOW SHADE CUTTER Respiratory Rate - - Oxygen Saturation - - Inhaled Oxygen Concentration - - Weight 68 kg (149 lb 14.6 oz) 03/02/2024 9:15 AM WINDOW SHADE CUTTER Height - - Body Mass Index 31.73 02/24/2024 1:08 PM WINDOW SHADE CUTTER documented in this encounter Progress Notes * Ngozi, Darell Soliman APRN, C.N.P. - 03/02/2024 9:00 AM CST SUBJECTIVE CHIEF COMPLAINT / REASON FOR VISIT Carline Gibbons is a 78 y.o. female who presents for evaluation of Symptom Assessment (Sinus congestion, headache and an occasion cough. ). HISTORY OF PRESENT ILLNESS Chief Complaint / Reason for Call Patient is a 78 y.o. female calling regarding Sinus Problem. Assessment Concern: Patient calling. States she is having sinus congestion, headache and an occasion cough. She says her ears are popping. She says she is supposed to be having surgery on so would liketo be seen. Present for: 3 days In clinic Today: Patient states that her initially had the illness about 10 days ago. He felt it was more of an environmental allergy so we increased his allergic rhinitis regimen which seemed to help some. Patient started getting ill about 3 days ago with a very mild cough a couple times per day, dry. Occasional frontal sinus and left ear discomfort. Most significantly is sinus congestion and rhinorrhea. She denies fever, chills, otorrhea, epistaxis, rash, nausea, vomiting, diarrhea, malaise, recent travel, chest pain, shortness of breath, wheezing, palpitations. The following portions of the patient's history were reviewed and updated as appropriate: allergies, current medications, family history, medical history, social history, surgical history, and problem list. OBJECTIVE BP 151/68 (BP Location: Left arm) Pulse (!) 58 Temp 36.2 ??C (Temporal) Wt 68 kg BMI 31.73 kg/m?? PHYSICAL EXAM Constitutional General: She is not in acute distress. Appearance: She is not ill-appearing. HENT Right Ear: Tympanic membrane normal. Left Ear: Tympanic membrane normal. Nose: Congestion present. Mouth/Throat: Pharynx: Oropharynx is clear. Eyes Conjunctiva/sclera: Conjunctivae normal. Pupils: Pupils are equal, round, and reactive to light. Cardiovascular Rate and Rhythm: Normal rate and regular rhythm. Heart sounds: Normal heart sounds. Pulmonary Breath sounds: Normal breath sounds. Musculoskeletal Cervical back: Neck supple. No tenderness. Lymphadenopathy Cervical: No cervical adenopathy. Skin General: Skin is warm and dry. Neurological Mental Status: She is alert and oriented to person, place, and time. ASSESSMENT / PLAN #1 Infection Upper Respiratory No bacterial etiologies on exam to warrant antibiotics today. No indication for chest x-ray. With the upcoming surgery and due to the short duration of symptoms, will check COVID, influenza, RSV. Recommended continued supportive measures with consideration of Benadryl at nighttime, Flonase, guaiFENesin and dextromethorphan. If symptoms persist or worsen, she should follow up in clinic. -- Since patient does have surgery scheduled for this , will send a note to Dr. Delcid however recommended she also contact surgical team to make them aware of her current illness. - SARS CoV-2, Influenza A/B, RSV, PCR Symptomatic All questions answered, patient and agreed with plan of care. Patient left clinic in no acute distress. Return to clinic as needed. Darell Melvin APRN, C.N.P. OW SHADE CUTTER documented in this encounter Plan of Treatment Not on file documented as of this encounter Procedures Procedure Name Priority Date/Time Associated Diagnosis Comments SARS COV-2,INFLUENZA A/B,RSV,PCR, V Routine 03/02/2024 9:46 AM WINDOW SHADE CUTTER Infection Upper Respiratory documented in this encounter Results * SARS CoV-2, Influenza A/B, RSV, PCR Symptomatic (03/02/2024 9:46 AM WINDOW SHADE CUTTER) Influenza A, PCR Undetected Undetected 03/02/20 24 12:45 PM WINDOW SHADE CUTTER RDWG Comment:Influenza A viral RN A absent. Influenza B, PCR Undetected Undetected 03/02/20 24 12:45 PM WINDOW SHADE CUTTER RDWG Comment:Influenza B viral RN A absent. Respiratory Syncytial Virus, PCR Undetected Undetected 03/02/2024 12:45 PM WINDOW SHADE CUTTER RDWG Comment:RSV RNA absent. SARS-Coronavirus -2, PCR Undetected Undetected 03/02/2024 12:45 PM WINDOW SHADE CUTTER RDWG Comment: SARS-CoV-2 RNA absent. ----ADDITIONAL INFORMATION---- This RT-PCR test using the Xpert Xpress SARS-CoV-2/Flu/RSV assay ([employer] performed on the [employer] systems has received Emergency Use Authorization (EUA) by the U.S. Food and Drug Administration. Performance characteristics were verified by [facility] in a manner consistent with CLIA requirements. Fact sheets for this Emergency Use Authorization (EUA) assay can be found at the following links: For Healthcare Providers: https://www.fda.gov/media/589199/download For Patients: https://www.fda.gov/media/230578/download Specimen Source Swab, Nasopharynx 03/02/2024 11:49 AM WINDOW SHADE CUTTER RDWG Swab (Nasopharynx) 03/02/2024 9:46 AM WINDOW SHADE CUTTER 03/02/2024 11:49 AM WINDOW SHADE CUTTER Darell Melvin APRN, C.N.P. LAB MICROBIOLOGY - G ENERAL ORDERABLES Final Result [facility] [address] [place] [address], [facility] R[facility] [place] [address] [place] [phone] documented in this encounter Visit Diagnoses Diagnosis Infection Upper Respiratory- Primary documented in this encounter Additional Health Concerns Assessment Noted Time PHQ-9 Depression Total Score: 0 08/11/19 24 8:34 AM CDT documented as of this encounter Care Teams Brinell Tester Relationship Specialty Start Date End Date Damon Nagel M.D. [address] [place] [phone] PCP - General Family Medicine 08/31/19 documented as of this encounter
--- OUTSIDE RECORDS SUMMARY | 2024-03-04 10:20 | XMS_ITS | Encounter Summary ---
Author Organization [facility] Address [address] [place] [address] Care Team Providers Care Pipe Racker Name Role Phone Damon Nagel M.D. Primary Care Provider Encounter Details Date Type Department Care Team (Late st Contact Info) Description 02/09/2024 Clinical Communication Department of Family Medicine, [facility], in [place], [place] [address] [place] [phone] Damon Nagel M.D. [address] [place] [phone] Social History Tobacco Use Types Packs/Day Years Used Date Smoking Tobacco: Never Smokeless Tobacco: Never Alcohol Use Standard Drinks/Week Comments Yes 1 (1 standard drink = 0.6 oz pur e alcohol) occassional [facility] Utilities Answer Date Recorded In the past 12 months has e [employer], gas, oil, or water [employer] threatened to shut off services in your [...] often do you attend chur ch or baptism services? More than 4 times per year 07/14/2022 Do you belong to any clubs o r organizations such as scientology groups, unions, fraternal or athletic groups, or [...] Answer Date Recorded PHQ-2 Score 0 08/11/2023 [facility] of Occupat ional Health - [...] your living situation today? I have a [facility] place to live 08/05/2023 Education Answer Date Recorded What is the highest level of school you have completed or the highest degree you have received? Associate degree: occupational, technical, or vocational program 12/28/2018 Comments No Sex and Gender Information Value Date Recorded Sex Assigned at Female 06/08/2021 1:02 PM FIRER POWERHOUSE Legal Sex Female 3:41 PM FIRER POWERHOUSE Gender Identity Female 07/21/2017 4:03 PM CDT Sexual Orientation Straight 07/21/2017 4: 03 PM CDT documented as of this encounter Miscellaneous Notes * Telephone Encounter - Pauly Reeves - 02/09/2024 3:25 PM CST PARKER Nurse Message Reason for Communication: patient is calling because she was told by the person that did her preop tell her that she should have an antibiotic prior to going to the dentist because of her heart surgeries Current Can Nursing/Provider leave a detailed message? no Did the patient refuse triage through Nurse line? (for symptom-based concerns): n/a Action Needed: call back Name of Medication (if relevant): amoxicillin Please send all scheduling replies to scheduling pool. R POWERHOUSE documented in this encounter Plan of Treatment Not on file documented as of this encounter Visit Diagnoses Not on filedocumented in this encounter Additional Health Concerns Assessment Noted Time PHQ-9 Depression Total Score: 0 08/11/19 24 8:34 AM CDT documented as of this encounter Care Teams Pipe Racker Relationship Specialty Start Date End Date Damon Nagel M.D. [address] [phone] PCP - General Family Medicine 08/31/19 documented as of this encounter
--- OUTSIDE RECORDS SUMMARY | 2024-03-04 10:20 | XMS_ITS | Clinical Summary ---
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 Status post abdominal hysterectomy 11/01/2014 Iron deficiency anemia 11/18/2012 Diastolic dysfunction 10/12/2012 Chronic coronary artery disease 10/06/2012 Carotid sinus syndrome 10/04/2011 History of myocardial infarction 08/26/2009 Overview (08/24/2015): NSTEMI Osteopenia 04/15/2003 Family History Medical History [...] 53 12/11/2021 12:07 PM CDT Temperature 36.6 C (97.8 F) 12/11/2021 10:47 AM CDT Respiratory Rate 16 12/11/2021 10:47 AM CDT [...] 65+ (1 of 1 - PCV) 2012 RSV vaccine for adults or (1 - 1-dose 75+ series) 2022 COVID-19 vaccine series ( season) 2023 01/17/2023, 01/11/2022, 07/24/2021, Additional history exists Influenza for age 65+ 11/30/2023 Care Teams Splitting Machine Feeder Relationship Specialty Start Date End Date Damon Nagel MD [address] [facility] [place] [phone] PCP - General Family Practice 12/11/21
--- OUTSIDE RECORDS SUMMARY | 2024-03-04 10:20 | XMS_ITS | Encounter Summary ---
Author Organization [facility] Address [address] [place] [address] Care Team Providers Care Inventory Coordinator Name Role Phone Damon Nagel M.D. Primary Care Provider Encounter Details Date Type Department Care Team (Late st Contact Info) Description 12/10/2023 Clinical Communication Department of Family Medicine, [facility], in [place], [place] [address] [place] [phone] Damon Nagel M.D. [address] [place] [phone] Social History Tobacco Use Types Packs/Day Years Used Date Smoking Tobacco: Never Smokeless Tobacco: Never Alcohol Use Standard Drinks/Week Comments Yes 1 (1 standard drink = 0.6 oz pur e alcohol) occassional [facility] Utilities Answer Date Recorded In the past 12 months has e [employer], gas, oil, or water [employer] threatened to shut off services in your [...] often do you attend chur ch or caodaism services? More than 4 times per year 07/14/2022 Do you belong to any clubs o r organizations such as yarsani groups, unions, fraternal or athletic groups, or [...] Answer Date Recorded PHQ-2 Score 0 08/11/2023 [facility] of Occupat ional Health - Occupational Stress [...] your living situation today? I have a [facility] place to live 08/05/2023 Education Answer Date Recorded What is the highest level of school you have completed or the highest degree you have received? Associate degree: occupational, technical, or vocational program 12/28/2018 Comments No Sex and Gender Information Value Date Recorded Sex Assigned at Female 06/08/2021 1:02 PM CARPENTER LABOR SUPERVISOR Legal Sex Female 3:41 PM CARPENTER LABOR SUPERVISOR Gender Identity Female 07/21/2017 4:03 PM CDT Sexual Orientation Straight 07/21/2017 4: 03 PM CDT documented as of this encounter Plan of Treatment Not on file documented as of this encounter Visit Diagnoses Not on filedocumented in this encounter Additional Health Concerns Assessment Noted Time PHQ-9 Depression Total Score: 0 08/11/19 24 8:34 AM CDT documented as of this encounter Care Teams Inventory Coordinator Relationship Specialty Start Date End Date Damon Nagel M.D. [address] [place] [phone] PCP - General Family Medicine 08/31/19 documented as of this encounter
--- OUTSIDE RECORDS SUMMARY | 2024-03-04 10:20 | XMS_ITS | Encounter Summary ---
Author Organization [facility] Address [address] [place] [address] Care Team Providers Care Roll Weigher Name Role Phone Damon Nagel M.D. Primary Care Provider Encounter Details Date Type Department Care Team (Late st Contact Info) Description 02/09/2024 Orders Only Department of Family Medicine, [facility], in [place], [place] [address] [place] [phone] Damon Nagel M.D. [address], [place] [phone] Social History Tobacco Use Types Packs/Day Years Used Date Smoking Tobacco: Never Smokeless Tobacco: Never Alcohol Use Standard Drinks/Week Comments Yes 1 (1 standard drink = 0.6 oz pur e alcohol) occassional [facility] Utilities Answer Date Recorded In the past 12 months has e [employer], gas, oil, or water [employer] threatened to shut off services in your [...] often do you attend chur ch or sikh services? More than 4 times per year 07/14/2022 Do you belong to any clubs o r organizations such as pentecostal groups, unions, fraternal or athletic groups, or [...] Answer Date Recorded PHQ-2 Score 0 08/11/2023 [facility] of Occupat ional Health - Occupational [...] your living situation today? I have a [facility] place to live 08/05/2023 Education Answer Date Recorded What is the highest level of school you have completed or the highest degree you have received? Associate degree: occupational, technical, or vocational program 12/28/2018 Comments No Sex and Gender Information Value Date Recorded Sex Assigned at Female 06/08/2021 1:02 PM ADMINISTRATIVE INTERN Legal Sex Female 3:41 PM ADMINISTRATIVE INTERN Gender Identity Female 07/21/2017 4:03 PM CDT Sexual Orientation Straight 07/21/2017 4: 03 PM CDT documented as of this encounter Plan of Treatment Not on file documented as of this encounter Visit Diagnoses Not on filedocumented in this encounter Additional Health Concerns Assessment Noted Time PHQ-9 Depression Total Score: 0 08/11/19 24 8:34 AM CDT documented as of this encounter Care Teams Roll Weigher Relationship Specialty Start Date End Date Damon Nagel M.D. [address] [place] [phone] PCP - General Family Medicine 08/31/19 documented as of this encounter
--- OUTSIDE RECORDS SUMMARY | 2024-03-04 10:20 | XMS_ITS | Encounter Summary ---
Author Organization [facility] Address [address] [place] [address] Care Team Providers Care Truck Shop Mechanic Name Role Phone Damon Nagel M.D. Primary Care Provider Reason for Visit * Reason Onset Date Comments Sinus Problem 03/02/2024 Encounter Details Date Type Department Care Team (Late st Contact Info) Description 03/02/2024 Nurse Triage Department of Family Medicine, [facility], in [place], [place] [address] [phone] Barbara Reyes, RLisa [address] [place] [phone] Sinus Problem Social History Tobacco Use Types Packs/Day Years Used Date Smoking Tobacco: Never Smokeless Tobacco: Never Comments:Never Smoked. Alcohol Use Standard Drinks/Week Comments Yes 1 (1 standard drink = 0.6 oz pur e alcohol) occassional [facility] Utilities Answer Date Recorded In the past 12 months has e [employer], gas, oil, or water [employer] threatened to shut off services in your [...] often do you attend chur ch or islam services? More than 4 times per year 07/14/2022 Do you belong to any clubs o r organizations such as anglican groups, unions, fraternal or athletic groups, or [...] Answer Date Recorded PHQ-2 Score 0 08/11/2023 [facility] of Occupat ional Health - Occupational Stress [...] your living situation today? I have a [facility] place to live 08/05/2023 Education Answer Date Recorded What is the highest level of school you have completed or the highest degree you have received? Associate degree: occupational, technical, or vocational program 12/28/2018 Comments No Sex and Gender Information Value Date Recorded Sex Assigned at Female 06/08/2021 1:02 PM UPHOLSTERY CLEANER Legal Sex Female 3:41 PM UPHOLSTERY CLEANER Gender Identity Female 07/21/2017 4:03 PM CDT Sexual Orientation Straight 07/21/2017 4: 03 PM CDT documented as of this encounter Miscellaneous Notes * Telephone Encounter - Barbara Reyes R.N. - 03/02/2024 7:57 AM UPHOLSTERY CLEANER Chief Complaint / Reason for Call Patient is a 78 y.o. female calling regarding Sinus Problem. Assessment Concern: Patient calling. States she is having sinus congestion, headache and an occasion cough. She says her ears are popping. She says she is supposed to be having surgery on so would liketo be seen. Present for: 3 days Home cares tried: fluids Calling to request: appointment The recommended disposition is See a health care provider within 24 hours (overriding Home Care). Patient was warm transferred to, Nayeli, Patient Appointment Container Maker at the clinic for further assistance. and If clinic appointment is not available in the next 24 hours, caller is advised to be seen in same day clinic Care Advice Patient/Caregiver understands and will follow care advice?: Yes, able to teach back Sinus Pain or Nafjgpfryh-Aklle-UA Nurse Barbara Méndez Mar 02, 2024 08:03 AM Care Advice CALL BACK IF: * Severe pain lasts over 2 hours after pain medicine * Sinus pain lasts over 1 day after using nasal washes * Sinus congestion (fullness) lasts over 10 days * Fever lasts over 3 days * You become worse PAIN MEDICINES: * For pain relief, you can take either acetaminophen, ibuprofen, or naproxen. * They are ohnl-hya-opvrikl (OTC) pain drugs. You can buy them [...] a day (4,000 mg total). * IBUPROFEN (SUCH MOTRIN, ADVIL): Take 400 mg (two 200 mg pills) by mouth every 6 hours. The most you should take is 6 pills a day (1,200 mg total). * NAPROXEN (SUCH ALEVE): Take 220 mg (one 220 mg pill) by mouth every 8 to 12 hours as needed. You may take 440 mg (two 220 mg pills) for your first dose. The most you should take is 3 pills a day(660 mg total). Note: In [place], the maximum is 2 pills a day (one every 12 hours; 440 mg total). * Use the lowest amount of medicine that makes your pain better. NASAL WASHES FOR A STUFFY NOSE: * Introduction: Saline (salt water) nasal irrigation (nasal wash) is an effective and simple home remedy for treating stuffy nose and sinus congestion. The nose can be irrigated by pouring, spraying,or squirting salt water into the nose and then letting it run back out. * How it Helps: The salt water rinses out excess mucus and washes out any irritants (dust, allergens) that might be present. It also moistens the nasal cavity. * Methods: There are several ways to irrigate the nose. You can use a saline nasal spray bottle (available pzdz-xmv-oyzilby), a rubber ear syringe, a medical syringe without the needle, or a NETI POT. Reason for Disposition [1] Sinus congestion as part of a cold AND [2] present < 10 days Protocols used: Sinus Pain or Davnpstrtv-Ahduz-BC LSTERY CLEANER documented in this encounter Plan of Treatment Not on file documented as of this encounter Visit Diagnoses Not on filedocumented in this encounter Additional Health Concerns Assessment Noted Time PHQ-9 Depression Total Score: 0 08/11/19 24 8:34 AM CDT documented as of this encounter Care Teams Truck Shop Mechanic Relationship Specialty Start Date End Date Damon Nagel M.D. [address], [place] [phone] PCP - General Family Medicine 08/31/19 documented as of this encounter
--- OUTSIDE RECORDS SUMMARY | 2024-03-04 10:20 | XMS_ITS | Encounter Summary ---
Author Organization [facility] Address [address] [place] [address] Care Team Providers Care Rack Washer Name Role Phone Damon Nagel M.D. Primary Care Provider Encounter Details Date Type Department Care Team (Latest Contact Info) Description 02/09/2024 9:28 AM EYELET MAKER - 02/09/2024 11:59 PM [facility] Hospital Encounter Department of Laboratory Medicine in [address] [place] [address] Damon Nagel M.D. [address] [phone] Diabetes Mellitus Type 2 (HCC) Discharge Disposition: Home or Self Care Social History Tobacco Use Types Packs/Day Years Used Date Smoking Tobacco: Never Smokeless Tobacco: Never Alcohol Use Standard Drinks/Week Comments Yes 1 (1 standard drink = 0.6 oz pur e alcohol) occassional [facility] Utilities Answer Date Recorded In the past 12 months has e electric, gas, oil, or water [employer] threatened to shut off services in your [...] How often do you attend chur or nondenominational services? More than 4 times per year 07/14/2022 Do you belong to any clubs o r organizations such as yazidism groups, unions, fraternal or athletic groups, or [...] Answer Date Recorded PHQ-2 Score 0 08/11/2023 [facility] of Occupat ional Health - Occupational Stress [...] your living situation today? I have a [facility] place to live 08/05/2023 Education Answer Date Recorded What is the highest level of school you have completed or the highest degree you have received? Associate degree: occupational, technical, or vocational program 12/28/2018 Comments No Sex and Gender Information Value Date Recorded Sex Assigned at Female 06/08/2021 1:02 PM EYELET MAKER Legal Sex Female 3:41 PM EYELET MAKER Gender Identity Female 07/21/2017 4:03 PM CDT Sexual Orientation Straight 07/21/2017 4: 03 PM CDT documented as of this encounter Medications at Time of Discharge Accu-Chek Fastclix Lancet Drum USE TO CHECK BLOOD SUGAR ONCE DAILY 100 each 3 03/26/2023 acetaminophen (TylenoL) 500 mg capsule Take 500 mg by mouth every 6 (six) hours. 08/21/2023 ASCORBIC ACID-ASCORBATE CALC ORAL Take 1 tablet [...] mouth 2 (two) times a day. 03/04/2016 loratadine 10 mg capsule Take 10 mg by mouth daily. 09/04/2015 multivit-min/iro n/FA/vit K/lut (CENTRUM SILVER WOMEN ORAL) Take 1 tablet by mouth. 01/29/2023 chlorthalidone (HYGROTON) 25 mg tablet Take 1 tablet (25 mg total) by mouth daily. 90 tablet 4 02/06/2023 02/24/2024 HYDROmorphone (Dilaudid) 2 mg tablet Take 2 mg by mouth. 08/21/2023 02/24/2024 losartan (COZAAR) 100 mg tabletIndication s:Hypertensive Heart Disease Without Heart Failure Take 1 tablet (100 mg total) by mouth daily. 90 tablet 4 02/06/2023 02/24/2024 MULTIVITAMIN WITH MINERALS ORAL daily. 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 25 tablet 1 02/06/2023 02/24/2024 potassium chloride (KLOR-CON M/KDUR) 20 mEq ER tablet Take 1 tablet (20 mEq total) by mouth daily. 90 tablet 4 02/06/2023 02/24/2024 rosuvastatin (CRESTOR) 40 mg tabletIndication s:Hyperlipidemia Mixed Take 1 tablet (40 mg total) by mouth daily. 90 tablet 4 02/06/2023 02/24/2024 documented as of this encounter Plan of Treatment Not on file documented as of this encounter Procedures Procedure Name Priority Date/Time Associated Diagnosis Comments HEMOGLOBIN A1C, B Routine 02/09/2024 9:5 7 AM EYELET MAKER Diabetes Mellitus Type 2 (HCC) documented in this encounter Results * (ABNORMAL) Hemoglobin A1c (02/09/2024 9:57 AM EYELET MAKER) Hemoglobin A1c, B 5.9(H) 4.2 - 5.6 % 02/09/2024 1:54 PM EYELET MAKER OWAT Comment: Hemoglobin A1c values of 5.7-6.4 percent indicate an increased risk for developing diabetes mellitus. In diabetic patients, HbA1c goals should be discussed with healthcare provider. Blood (Blood, Venous) 02/09/2024 9:57 AM EYELET MAKER 02/09/2024 1:19 PM EYELET MAKER us Damon Nagel M.D. LAB BLOOD ADD-ON Final Result [facility] [address] [place] [address], [facility] OWAT [facility] [place] [address] [place] [address] documented in this encounter Visit Diagnoses Diagnosis Diabetes Mellitus Type 2 (HCC) documented in this encounter Additional Health Concerns Assessment Noted Time PHQ-9 Depression Total Score: 0 08/11/19 24 8:34 AM CDT documented as of this encounter Care Teams Rack Washer Relationship Specialty Start Date End Date Damon Nagel M.D. [address] [phone] PCP - General Family Medicine 08/31/19 documented as of this encounter
--- OUTSIDE RECORDS SUMMARY | 2024-03-04 10:20 | XMS_ITS | Encounter Summary ---
Author Organization [facility] Address [address] [place] [address] Care Team Providers Care Television Cabinet Finisher Name Role Phone Damon Nagel M.D. Primary Care Provider Reason for Referral * Outpatient (Routine) - Closed Specialty Diagnoses / Procedures Referred By Marco pompa Referred To Contact Diagnoses Routine Screening Breast Exam Procedures BI Breast Screening Bilateral with Tomosynthesis Damon Nagel M.D. [address] [place] [address] Phone: tel: [facility] Referral ID Status Reason Start Date Expiration Date Visits Re quested Visits Authorized [id number] Closed 12/10/2023 12/09/2024 1 1 Reason for Visit * Outpatient (Routine) - Closed Specialty Diagnoses / Procedures Referred By Marco pompa Referred To Contact Diagnoses Routine Screening Breast Exam Procedures BI Breast Screening Bilateral with Tomosynthesis Damon Nagel M.D. [address] [place] [address] Phone: tel: [facility] Region Referral ID Status Reason Start Date Expiration Date Visits Re quested Visits Authorized [id number] Closed 12/10/2023 12/09/2024 1 1 Encounter Details Date Type Department Care Team (Latest Contact Info) Description 01/12/2024 8:56 AM CDT - 01/12/2024 11:59 PM CDT Hospital Encounter Department of Radiology in [place], [place] [address] [place] [address] Damon Nagel M.D. [address] [place] [address] Routine Screening Breast Exam Discharge Disposition: Home or Self Care Social History Tobacco Use Types Packs/Day Years Used Date Smoking Tobacco: Never Smokeless Tobacco: Never Alcohol Use Standard Drinks/Week Comments Yes 1 (1 standard drink = 0.6 oz pur e alcohol) occassional [facility] Utilities Answer Date Recorded In the past 12 months has e [employer], gas, oil, or water [employer] threatened to shut off services in your [...] often do you attend chur ch or orthodoxy services? More than 4 times per year 07/14/2022 Do you belong to any clubs o r organizations such as episcopal groups, unions, fraternal or athletic groups, or [...] Date Recorded PHQ-2 Score 0 08/11/2023 [facility] of Occupat ional [facility] - Occupational Stress Questionnaire Answer [...] your living situation today? I have a [facility] place to live 08/05/2023 Education Answer Date Recorded What is the highest level of school you have completed or the highest degree you have received? 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 IMG BI PROCEDURES Sirisha l Result documented in this encounter Visit Diagnoses Diagnosis Routine Screening Breast Exam documented in this encounter Additional Health Concerns Assessment Noted Time PHQ-9 Depression Total Score: 0 08/11/19 24 8:34 AM CDT documented as of this encounter Care Teams Television Cabinet Finisher Relationship Specialty Start Date End Date Damon Nagel M.D. [address] [place] [phone] PCP - General Family Medicine 08/31/19 documented as of this encounter
--- OUTSIDE RECORDS SUMMARY | 2024-03-04 10:20 | XMS_ITS | Encounter Summary ---
Author Organization [facility] Address [address] [place] [address] Care Team Providers Care Otolaryngology Teacher Name Role Phone Damon Nagel M.D. Primary Care Provider Encounter Details Date Type Department Care Team (Latest Contact Info) Description 02/09/2024 9:28 AM DRUG DISCOVERY INFORMATICS SPECIALIST - 02/09/2024 11:59 PM [facility] Hospital Encounter Department of Laboratory Medicine in [address] [place] [phone] Damon Nagel M.D. [address] [phone] Diabetes Mellitus Type 2 (HCC) Discharge Disposition: Home or Self Care Social History Tobacco Use Types Packs/Day Years Used Date Smoking Tobacco: Never Smokeless Tobacco: Never Alcohol Use Standard Drinks/Week Comments Yes 1 (1 standard drink = 0.6 oz pur e alcohol) occassional [facility] Utilities Answer Date Recorded In the past 12 months has e electric, gas, oil, or water [employer] threatened to shut off services in your [...] How often do you attend chur or caodaism services? More than 4 times [...] Answer Date Recorded PHQ-2 Score 0 08/11/2023 [facility] of Occupat ional Health - Occupational Stress [...] your living situation today? I have a [facility] place to live 08/05/2023 Education Answer Date Recorded What is the highest level of school you have completed or the highest degree you have received? 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 Creatinine 89 mg/dL 02/09/2024 1:56 PM DRUG DISCOVERY INFORMATICS SPECIALIST OWAT Albumin/Creatinine Ratio <13 <25 mg/g 02/09/2024 1:56 PM DRUG DISCOVERY INFORMATICS SPECIALIST OWAT Comment: This ratio may not correspond with the reference range because one or both of the values used to calculate the ratio was above or below the quantification limits. Urine (Urine, Midstream) 02/09/2024 9:55 AM DRUG DISCOVERY INFORMATICS SPECIALIST 02/09/2024 1:17 PM DRUG DISCOVERY INFORMATICS SPECIALIST us Damon Nagel M.D. LAB URINE ORDERABLES F inal Result [facility] [address] [place] [address], [facility] OWAT [facility] in [place] [address] [place] [address] documented in this encounter Visit Diagnoses Diagnosis Diabetes Mellitus Type 2 (HCC) documented in this encounter Additional Health Concerns Assessment Noted Time PHQ-9 Depression Total Score: 0 08/11/19 24 8:34 AM CDT documented as of this encounter Care Teams Otolaryngology Teacher Relationship Specialty Start Date End Date Damon Nagel M.D. [address] [place] [address] PCP - General Family Medicine 08/31/19 documented as of this encounter
--- OUTSIDE RECORDS SUMMARY | 2024-03-04 10:20 | XMS_ITS | Encounter Summary ---
Author Organization [facility] Address [address] [place] [address] Care Team Providers Care Technical Aid Name Role Phone Damon Nagel M.D. Primary Care Provider Encounter Details Date Type Department Care Team (Late st Contact Info) Description 12/02/2023 Orders Only [facility] Damon Nagel M.D. [address] [place] [phone] Diabetes Mellitus Type 2 (HCC) Social History Tobacco Use Types Packs/Day Years Used Date Smoking Tobacco: Never Smokeless Tobacco: Never Alcohol Use Standard Drinks/Week Comments Yes 1 (1 standard drink = 0.6 oz pur e alcohol) occassional [facility] Utilities Answer Date Recorded In the past 12 months has [facility] [employer], gas, oil, or water [employer] threatened to shut off services in your [...] How often do you attend chur or uatsdin services? More than 4 times per year [...] Date Recorded PHQ-2 Score 0 08/11/2023 [facility] of Occupat ional Health - Occupational [...] your living situation today? I have a [facility] place to live 08/05/2023 Education Answer Date Recorded What is the highest level of school you have completed or the highest degree you have received? Associate degree: occupational, technical, or vocational program 12/28/2018 Comments No Sex and Gender Information Value Date Recorded Sex Assigned at Female 06/08/2021 1:02 PM UPKEEP MECHANIC Legal Sex Female 3:41 PM UPKEEP MECHANIC Gender Identity Female 07/21/2017 4:03 PM CDT Sexual Orientation Straight 07/21/2017 4: 03 PM CDT documented as of this encounter Plan of Treatment Not on file documented as of this encounter Results * Albumin, Random, Urine (02/09/2024 9:55 AM UPKEEP MECHANIC) Microalbumin <12.0 mg/L 02/09/2024 1:56 PM UPKEEP MECHANIC OWAT Comment:If clinically indica bushra, contact the lab for additional testing. Creatinine 89 mg/dL 02/09/2024 1:56 PM UPKEEP MECHANIC OWAT Albumin/Creatinine Ratio <13 <25 mg/g 02/09/2024 1:56 PM UPKEEP MECHANIC OWAT Comment: This ratio may not correspond with the reference range because one or both of the values used to calculate the ratio was above or below the quantification limits. Urine (Urine, Midstream) 02/09/2024 9:55 AM UPKEEP MECHANIC 02/09/2024 1:17 PM UPKEEP MECHANIC us Damon Nagel M.D. LAB URINE ORDERABLES F inal Result [facility] [address] [place] [address], [facility] OWAT [facility] in [place] [address] [place] [address] documented in this encounter Visit Diagnoses Diagnosis Diabetes Mellitus Type 2 (HCC) documented in this encounter Additional Health Concerns Assessment Noted Time PHQ-9 Depression Total Score: 0 08/11/19 24 8:34 AM CDT documented as of this encounter Care Teams Technical Aid Relationship Specialty Start Date End Date Damon Nagel M.D. [address] [place] [phone] PCP - General Family Medicine 08/31/19 documented as of this encounter
--- OUTSIDE RECORDS SUMMARY | 2024-03-04 10:20 | XMS_ITS | Encounter Summary ---
Author Organization [facility] Address [address] [place] [address] Care Team Providers Care Lace Cutter Name Role Phone Damon aNgel M.D. Primary Care Provider Reason for Visit * Reason Onset Date Comments Pre-op Exam 02/25/2024 Encounter Details Date Type Department Care Team (Late st Contact Info) Description 02/25/2024 Clinical Communication Department of Family Medicine, [facility], in [place], [place] [address] [phone] Lynnette Aleman, CLINICAL BUSINESS MANAGER, C.N.P. [address] [phone] Pre-op Exam Social History Tobacco Use Types Packs/Day Years Used Date Smoking Tobacco: Never Smokeless Tobacco: Never Alcohol Use Standard Drinks/Week Comments Yes 1 (1 standard drink = 0.6 oz pur e alcohol) occassional [facility] Utilities Answer Date Recorded In the past [...] How often do you attend chur or sikh services? More than 4 times per year 07/14/2022 Do you belong to any clubs o r organizations such as nondenominational groups, unions, fraternal or athletic groups, or [...] Answer Date Recorded PHQ-2 Score 0 08/11/2023 [facility] [place] of Occupat ional Health - Occupational Stress [...] living situation today? I have a [facility] place to live 08/05/2023 Education Answer Date Recorded What is the highest level of school you have completed or the highest degree you have received? Associate degree: occupational, technical, or vocational program 12/28/2018 Comments No Sex and Gender Information Value Date Recorded Sex Assigned at Female 06/08/2021 1:02 PM MAGISTRATE ASSISTANT Legal Sex Female 3:41 PM MAGISTRATE ASSISTANT Gender Identity Female 07/21/2017 4:03 PM CDT Sexual Orientation Straight 07/21/2017 4: 03 PM CDT documented as of this encounter Plan of Treatment Not on file documented as of this encounter Visit Diagnoses Not on filedocumented in this encounter Additional Health Concerns Assessment Noted Time PHQ-9 Depression Total Score: 0 08/11/19 24 8:34 AM CDT documented as of this encounter Care Teams Lace Cutter Relationship Specialty Start Date End Date Damon Nagel M.D. [address] [place] [phone] PCP - General Family Medicine 08/31/19 documented as of this encounter
--- OUTSIDE RECORDS SUMMARY | 2024-03-04 10:20 | XMS_ITS | Encounter Summary ---
Author Organization [facility] Address [address] [place] [address] Care Team Providers Care Lines Tender Name Role Phone Damon Nagel M.D. Primary Care Provider Encounter Details Date Type Department Care Team (Late st Contact Info) Description 02/10/2024 Orders Only Department of Family Medicine, [facility], in [place], [place] [address] [place] [phone] Damon Nagel M.D. [address], [place] [address] Social History Tobacco Use Types Packs/Day Years Used Date Smoking Tobacco: Never Smokeless Tobacco: Never Alcohol Use Standard Drinks/Week Comments Yes 1 (1 standard drink = 0.6 oz pur e alcohol) occassional [facility] Utilities Answer Date Recorded In the past 12 months has e [employer], gas, oil, or water [employer] threatened to shut off services in your [...] often do you attend chur ch or tenriism services? More than 4 times per year 07/14/2022 Do you belong to any clubs o r organizations such as holiness groups, unions, fraternal or athletic groups, or [...] Answer Date Recorded PHQ-2 Score 0 08/11/2023 [facility] [place] of Occupat ional Health - Occupational Stress [...] your living situation today? I have a [facility] place to live 08/05/2023 Education Answer Date Recorded What is the highest level of school you have completed or the highest degree you have received? Associate degree: occupational, technical, or vocational program 12/28/2018 Comments No Sex and Gender Information Value Date Recorded Sex Assigned at Female 06/08/2021 1:02 PM CLINICAL STAFF EDUCATOR Legal Sex Female 3:41 PM CLINICAL STAFF EDUCATOR Gender Identity Female 07/21/2017 4:03 PM CDT Sexual Orientation Straight 07/21/2017 4: 03 PM CDT documented as of this encounter Plan of Treatment Not on file documented as of this encounter Visit Diagnoses Not on filedocumented in this encounter Additional Health Concerns Assessment Noted Time PHQ-9 Depression Total Score: 0 08/11/19 24 8:34 AM CDT documented as of this encounter Care Teams Lines Tender Relationship Specialty Start Date End Date Damon Nagel M.D. [address] [place] [phone] PCP - General Family Medicine 08/31/19 documented as of this encounter
[2024-03-04] MEDS: SODIUM CHLORIDE 0.9 % (FLUSH) 10 ML SYRINGE IVF (10:46)
--- NOTE | 2024-03-04 11:47 | W.ANESCHARGE ---
Anesthesia Charges Start Date/Time Anesthesia Start Date: 03/04/24 Anesthesia Start Time: 13:12 Stop Date/Time Anesthesia Stop Date: 03/04/24 Anesthesia Stop Time: 14:24 Summary Extremes of Age - Over 70 or under 1: MDA
[2024-03-04] MEDS: CEFAZOLIN 2 GM INJ IVP (13:35)
--- NOTE | 2024-03-04 14:07 | PM.ORPRC ---
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 Operative intervention was recommended. The risks, benefits and expected outcomes were discussed in detail. These included but were not limited to: Infection, bleeding, injury to blood vessel or nerve, venous thromboembolism. All questions were answered to their satisfaction. PROCEDURE: Spinal anesthesia was administered. The patient was placed supine on the operating room table. The left lower extremity was prepped and draped in the usual sterile fashion. The limb was exsanguinated with the Florentin bandage. The pneumatic tourniquet was inflated to 300 mmHg. A standard anterolateral portal was established. The arthroscope was introduced. The working portal was established anteromedially. Diagnostic arthroscopy was performed with findings as follows: The patellar component is intact with circumferential scarring surrounding it. The femoral component is normal, the tibial polyethylene is normal. The scarring posterior to ther patellar tendon was debrided with the radiofrequency probe and shaver. A superolateral portal was placed. Then we aggressively debrided around the patellar component and posterior to the quads tendon with the shaver and radiofrequency probe. Arthroscopic instruments were removed, the portal sites were closed with a 3-0 nylon. Portals were injected with 0.25% Marcaine without epinephrine. A dry dressing was applied, the tourniquet was released. Sponge and needle counts were correct x 2. The patient tolerated the procedure well. There were no apparent complications. They were carefully transferred to the hospital bed and taken to the postanesthesia care unit in satisfactory condition. PLAN: The patient will be discharged to home. They may weightbear as tolerates. Range of motion will be unrestricted. They will follow up in the office in 2 weeks for a wound check and suture removal.
[2024-03-04] MEDS: BUPIVACAINE 0.25% 30 ML INJECTION (14:10)
[2024-03-04] MEDS: LACTATED RINGERS 500 ML 500 ML 125 ML IV (14:20)
--- NOTE | 2024-03-04 14:22 | W.ANESCHARGE ---
Anesthesia Charges Start Date/Time Anesthesia Start Date: 03/04/24 Anesthesia Start Time: 13:12 Stop Date/Time Anesthesia Stop Date: 03/04/24 Anesthesia Stop Time: 14:24 Summary Extremes of Age - Over 70 or under 1: CHIEF OF VITAL STATISTICS
== END 2024-03-04 15:52 | disposition home or self-care (01) ==
PROVIDERS: Visit Provider Orthopaedic Surgery
PROC: (CPT 29870; principal; 2024-03-04 11:30)
DX: M25.862 Other specified joint disorders, left knee (principal); Z96.652 Presence of left artificial knee joint
CPT/HCPCS: 29877; 01400; 99100; J0665; J0690; J2250; J2371; J2405; J3010; J7120

== ENCOUNTER 2024-09-28 06:11 | Day surgery (SDC) | payer MEDICARE, OTHER, SELFPAY ==
[2024-09-28] VITALS (13 sets, daily range): BP systolic 110–159; BP diastolic 59–71; PULSE 52–74; RESP 12–16; TEMP 36.1–36.7; O2SAT 95–100; BMI 32.3
[2024-09-28] MEDS: SODIUM CHLORIDE 0.9 % (FLUSH) 10 ML SYRINGE IVF (06:45)
[2024-09-28] MEDS: LACTATED RINGERS 1000 ML 1,000 ML 100 ML IV (06:45)
--- NOTE | 2024-09-28 08:20 | PM.ORPRC ---
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 Operative intervention was recommended. The risks, benefits and expected outcomes were discussed in detail. These included but were not limited to: Infection, bleeding, injury to blood vessel or nerve, venous thromboembolism. All questions were answered to their satisfaction. PROCEDURE: Spinal anesthesia was administered. The patient was placed supine on the operating room table. The left lower extremity was prepped and draped in the usual sterile fashion. The limb was exsanguinated with the Florentin bandage. The pneumatic tourniquet was inflated to 300 mmHg. A standard anterolateral portal was established. The arthroscope was introduced. The working portal was established anteromedially. Diagnostic arthroscopy was performed with findings as follows: The patellar component is intact with circumferential scarring surrounding it. The femoral component is normal, the tibial polyethylene is normal. The scarring posterior to the patellar tendon was debrided with the radiofrequency probe and shaver. A superolateral portal was placed. Then we aggressively debrided around the patellar component and posterior to the quads tendon with the shaver and radiofrequency probe. The lateral gutter was aggressively debrided. There was no prominent cement off of the femoral component. We were unable to isolate the heterotopic ossification posterolaterally as it was extra-articular. Arthroscopic instruments were removed, the portal sites were closed with a 3-0 nylon. Portals were injected with 0.25% Marcaine without epinephrine. A dry dressing was applied, the tourniquet was released. Sponge and needle counts were correct x 2. The patient tolerated the procedure well. There were no apparent complications. They were carefully transferred to the hospital bed and taken to the postanesthesia care unit in satisfactory condition. PLAN: The patient will be discharged to home. They may weightbear as tolerates. Range of motion will be unrestricted. They will follow up in the office in 2 weeks for a wound check and suture removal.
[2024-09-28] MEDS: BUPIVACAINE 0.25% 30 ML INJECTION (08:22)
--- NOTE | 2024-09-28 08:25 | SUR.OPER ---
PATIENT QUESTIONS ANSWERED SATISFACTORILY PREOPERATIVELY.? PATIENT BROUGHT TO OR #2 PER CART.? Patient positioned supine on OR #2 bed.? The perioperative?team supported arms bilaterally on arm boards.? Final approval of positioning by surgeon.? CONTINUOUS IRRIGATION OF THE LEFT KNEE DURING THE PROCEDURE WITH NACL.
--- NOTE | 2024-09-28 08:36 | P.ANES_ITS ---
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
--- NOTE | 2024-09-28 08:36 | W.ANESCHARGE ---
Anesthesia Charges Start Date/Time Anesthesia Start Date: 09/28/24 Anesthesia Start Time: 07:18 Stop Date/Time Anesthesia Stop Date: 09/28/24 Anesthesia Stop Time: 08:33 Summary Extremes of Age - Over 70 or under 1: LEAD RELAY TESTER Coding CPT Codes CPT Codes: ANESTH KNEE JOINT SURGERY - 52731 ([id number]) P3 - PATIENT W/SEVERE SYS DISEASE, QK - PEDIATRIC ONCOLOGY NURSE 2-4 CNCRNT ANES PROC, QX - LEAD RELAY TESTER SVC W/ MD MED DIRECTION Additional Codes: Summary - Extremes of Age - Over 70 or under 1: LEAD RELAY TESTER ([id number])
--- NOTE | 2024-09-28 09:01 | W.ANESCHARGE ---
Anesthesia Charges Start Date/Time Anesthesia Start Date: 09/28/24 Anesthesia Start Time: 07:18 Stop Date/Time Anesthesia Stop Date: 09/28/24 Anesthesia Stop Time: 08:33 Summary Extremes of Age - Over 70 or under 1: MDA Coding CPT Codes CPT Codes: ANESTH KNEE JOINT SURGERY - 99584 ([id number]) QK - DIRECTOR OF EARLY CHILDHOOD EDUCATION 2-4 CNCRNT ANES PROC, QX - STUDIO DIRECTOR SVC W/ MD MED DIRECTION, P3 - PATIENT W/SEVERE SYS DISEASE Additional Codes: Summary - Extremes of Age - Over 70 or under 1: MDA ([id number])
== END 2024-09-28 10:10 | disposition home or self-care (01) ==
PROVIDERS: PCP Family Medicine; Visit Provider Orthopaedic Surgery
PROC: (CPT 29870; principal; 2024-09-28 07:15)
DX: M25.862 Other specified joint disorders, left knee (principal); Z96.652 Presence of left artificial knee joint
CPT/HCPCS: 29877; 01400; 99100; J0665; J0690; J2704; J3010; J7120

== ENCOUNTER 2024-11-03 09:52 | Outpatient (CLI) | payer MEDICARE, OTHER, SELFPAY ==
--- NOTE | 2024-11-03 10:15 | CRLHL7_ITS ---
For Patients: As a result of the Century Cures Act, medical imaging exams and procedure reports are released immediately into your electronic medical record. You may view this report before your referring provider. If you have questions, please contact your health care provider. INDICATION: Low back pain. Left-sided radiculopathy. TECHNIQUE : Lumbar spine MRI without contrast. COMPARISON: Lumbar spine radiographs from 10/25/2024. FINDINGS : Five lumbar type vertebral bodies, with the last fully formed disc space designated as L5-S1. Normal lumbar lordotic curve. No recent compression fracture or marrow replacing process. Lower cord/conus signal is normal. The conus terminates at a normal location. No intradural lesion. Tiny right renal cyst. No extra-spinal soft tissue abnormalities. Discs/Endplates: Moderate disc height loss/disc desiccation and endplate remodeling at L4-5 and L5-S1. Mild disc height loss/disc desiccation T11-12, L2-3 and L3-4. multiple Schmorl`s node deformities, most prominent at L2-3 and L3-4. Trace type 1 Modic changes associated with the L3-4 left-sided endplates and L4-5 posterior endplates. Findings at individual levels as follows: T11-12: Trace retrolisthesis. Shallow central protrusion. Bilateral low-grade facet arthrosis. No spinal canal or neural foraminal stenosis. T12-L1: No spinal canal or neural foraminal stenosis. L1-2: No spinal canal or neural foraminal stenosis. L2-3: Mild disc osteophyte complex. Bilateral facet arthrosis. No spinal canal or neural foraminal stenosis. L3-4: Trace anterolisthesis. Moderate disc osteophyte complex, asymmetric to the left. Bilateral low-grade facet arthrosis. Mild spinal canal stenosis and left subarticular recess stenosis with encroachment of the traversing L4 nerve root. Mild bilateral foraminal stenosis. L4-5: 5 millimeters grade 1 anterolisthesis. Superior disc unroofing and superimposed moderate disc osteophyte complex. A shallow central disc extrusion with slight caudal migration. High-grade bilateral facet arthrosis and ligamentum flavum thickening. Advanced spinal canal stenosis with buckling of the cauda equina. Mild bilateral neural foraminal stenosis. Stir hyperintensity posterior elements, consistent with stress reaction/degenerative inflammation. L5-S1: Moderate disc osteophyte complex, asymmetric to the right. A superimposed shallow central protrusion/osteophyte component which contacts the traversing S1 nerve roots. Bilateral facet arthrosis. Mild bilateral neural foraminal stenosis. No spinal canal stenosis. Imaged SI joints: Minimal arthrosis. Imaged sacrum: Within normal limits. IMPRESSION: 1. At L4-5, advanced spinal canal stenosis from grade 1 degenerative anterolisthesis/high-grade facet arthrosis/ligamentum flavum thickening. Stress reaction/degenerative inflammation involving the posterior elements. 2. Additional multilevel spondylosis without high-grade spinal canal/neural foraminal stenosis or chapincito compression of neural structures, as detailed at individual levels above. Dictated by Yeison Trotter MD @ 11/04/2024 1:54:15 PM (Electronically Signed)
== END 2024-11-03 09:53 | disposition home or self-care (01) ==
LOC: MRI 09:53
PROVIDERS: PCP Family Medicine; Visit Provider Family Medicine
DX: M54.50 Low back pain, unspecified (principal); M48.061 Spinal stenosis, lumbar region without neurogenic claudication; M47.896 Other spondylosis, lumbar region; M54.16 Radiculopathy, lumbar region; G89.29 Other chronic pain
CPT/HCPCS: 72148

== ENCOUNTER 2024-12-17 07:24 | Outpatient (CLI) | payer MEDICARE, OTHER, SELFPAY | END 2024-12-17 07:25 | disposition home or self-care (01) | LOC: INJ CL 07:24 | PROVIDERS: PCP Family Medicine; Visit Provider Family Medicine | DX: M54.16 Radiculopathy, lumbar region (principal); M48.062 Spinal stenosis, lumbar region with neurogenic claudication | CPT/HCPCS: 62323; J0702; Q9966 ==